=== PATIENT | male | born 1935 | race Caucasian/White ===

== ENCOUNTER → 2016-10-29 | Outpatient (CLI) | payer MEDICARE, OTHER ==
--- NOTE | 2016-10-29 14:41 | US ---
EXAMINATION TYPE: US carotid duplex BILAT DATE OF EXAM: 10/29/2016 2:26 PM COMPARISON: 10/14/2015 CLINICAL HISTORY: I65.23 Carotid Stenosis. EXAM MEASUREMENTS: RIGHT: Peak Systolic Velocity (PSV) cm/sec ----- Right CCA: 108 ----- Right ICA: 90.8 ----- Right ECA: 269 ICA/CCA ratio: 0.8 RIGHT: End Diastole cm/sec ----- Right CCA: 15.4 ----- Right ICA: 11.8 ----- Right ECA: 0 LEFT: Peak Systolic Velocity (PSV) cm/sec ----- Left CCA: 125 ----- Left ICA: 176 ----- Left ECA: 110 ICA/CCA ratio: 1.4 LEFT: End Diastole cm/sec ----- Left CCA: 15.2 ----- Left ICA: 32.0 ----- Left ECA: 13.3 VERTEBRALS (direction of flow): Right Vertebral: Antegrade Left Vertebral: Antegrade Mild homogeneous plaque seen and appears wnl IMPRESSION: 1. Mild atherosclerotic plaque bilaterally with no significant hemodynamic stenosis.
== END | disposition home or self-care (01) ==
LOC: RADUSWWP 13:57
PROVIDERS: ATTEND Family Medicine
DX: I65.23 Occlusion and stenosis of bilateral carotid arteries (principal)
CPT/HCPCS: 93880

== ENCOUNTER → 2018-05-29 | Outpatient (CLI) | payer OTHER ==
--- NOTE | 2018-05-29 14:51 | US ---
EXAMINATION TYPE: US carotid duplex BILAT DATE OF EXAM: 05/29/2018 COMPARISON: CLINICAL HISTORY: I65.29 CAROTID STENOSIS. HTN- meds. Annual exam per patient. EXAM MEASUREMENTS: RIGHT: Peak Systolic Velocity (PSV) cm/sec ----- Right CCA: 123.0 ----- Right ICA: 74.0 ----- Right ECA: 153.0 ICA/CCA ratio: 0.6 RIGHT: End Diastole cm/sec ----- Right CCA: 13.8 ----- Right ICA: 13.8 ----- Right ECA: 0.0 LEFT: Peak Systolic Velocity (PSV) cm/sec ----- Left CCA: 111.0 ----- Left ICA: 101.0 ----- Left ECA: 93.0 ICA/CCA ratio: 0.9 LEFT: End Diastole cm/sec ----- Left CCA: 13.1 ----- Left ICA: 17.5 ----- Left ECA: 12.5 VERTEBRALS (direction of flow): Right Vertebral: Antegrade Left Vertebral: Antegrade Rhythm: Normal No significant stenosis. Plaque seen in bilateral bulbs. No wall thickening. Elevated Right ECA. IMPRESSION: No evidence for hemodynamically significant stenosis. Criteria for Assigning % of Stenosis / Diameter reduction (Estimation based on the indirect measurements of the internal carotid artery velocities (ICA PSV). 1. Normal (no stenosis)=ICA PSV < 125 cm/s: ratio < 2.0: ICA EDV<40 cm/s. 2. Less than 50% stenosis=ICA PSV < 125 cm/s: ratio < 2.0: ICA EDV<40 cm/s. 3. 50 to 69% stenosis=ICA PSV of 125 to 230 cm/s: ration 2.0 ? 4.0: ICA EDV 40-100 cm/s. 4. Greater than 70% stenosis to near occlusion= ICA PSV > 230 cm/s: ratio > 4.0: ICA EDV > 100 cm/s. 5. Near occlusion= ICA PSV velocities may be low or undetectable: variable ratio and ICA EDV. 6. Total occlusion=unable to detect flow.
== END ==
LOC: RADUSWWP 14:02
DX: I65.29 Occlusion and stenosis of unspecified carotid artery (principal)
CPT/HCPCS: 93880

== ENCOUNTER 2019-08-29 10:33 | Emergency (ER) | payer MEDICARE, OTHER ==
[2019-08-29] MEDS ORDERED: ORPHENADRINE 30 MG/ML 2 ML VIAL IM STA (12:44)
[2019-08-29] MEDS ORDERED: KETOROLAC 60 MG/2 ML VIAL IM STA (12:44)
--- NOTE | 2019-08-29 12:47 | ED ---
General Adult HPI - General Chief complaint: Back Pain/Injury Stated complaint: back pain Time Seen by Provider: 08/29/19 11:30 Source: patient, RN notes reviewed, old records reviewed Mode of arrival: wheelchair Limitations: no limitations - History of Present Illness Initial comments: This is a 84-year-old male who presents to the emergency department complaining of posterior right thoracic pain. Patient states he coughed which she typically does because his COPD. And he felt pain just lateral to the spine below the scapula on the right. Patient states movement and deep breathing increases the pain. Patient denies any shortness of breath. Patient denies any chest pain or palpitations. Patient states he's had no fever chills per patient states he is not having any more of a cough and he normally doesn't do COPD. Patient denies any other injury at this time patient states. Patient states he's been taking Tylenol but it has not been helping recurred a couple days ago - Related Data Home Medications Medication Instructions Recorded Confirmed Albuterol Inhaler [Ventolin Hfa 2 puff INHALATION RT-Q6H PRN 08/29/19 08/29/19 Inhaler] Aspirin EC [Ecotrin Low Dose] 81 mg PO HS 08/29/19 08/29/19 Cholecalciferol [Vitamin D3 (25 1,000 unit PO DAILY 08/29/19 08/29/19 Mcg = 1000 Iu)] Latanoprost [Xalatan 0.005%] 1 drop LEFT EYE HS 08/29/19 08/29/19 Lisinopril [Zestril] 20 mg PO BID 08/29/19 08/29/19 Magnesium Oxide [Mag-Ox] 250 mg PO DAILY 08/29/19 08/29/19 Omeprazole 20 mg PO DAILY 08/29/19 08/29/19 Pravastatin Sodium [Pravachol] 20 mg PO HS 08/29/19 08/29/19 Tamsulosin [Flomax] 0.4 mg PO DAILY 08/29/19 08/29/19 Tiotropium 18 Mcg/Puff [Spiriva] 1 puff INHALATION RT-DAILY 08/29/19 08/29/19 Previous Rx's Medication Instructions Recorded Cyclobenzaprine [Flexeril] 10 mg PO TID #20 tab 08/29/19 Ibuprofen [Motrin] 600 mg PO Q8HR PRN #20 tab 08/29/19 Allergies Allergy/AdvReac Type Severity Reaction Status Date / Time No Known Allergies Allergy Verified 08/29/19 14:21 Review of Systems ROS Statement: Those systems with pertinent positive or pertinent negative responses have been documented in the HPI. ROS Other: All systems not noted in ROS Statement are negative. Past Medical History Past Medical History: COPD, Hyperlipidemia, Hypertension, Prostate Disorder Additional Past Medical History / Comment(s): glaucoma History of Any Multi-Drug Resistant Organisms: None Reported Past Surgical History: Cholecystectomy, Orthopedic Surgery Additional Past Surgical History / Comment(s): knee surgery Past Psychological History: No Psychological Hx Reported Smoking Status: Never smoker Past Alcohol Use History: Occasional Past Drug Use History: None Reported General Exam - General Exam Comments Initial Comments: GENERAL: Patient is well-developed and well-nourished. Patient is nontoxic and well- hydrated and is in mild distress. ENT: Neck is soft and supple. No significant lymphadenopathy is noted. Oropharynx is clear. Moist mucous membranes. Neck has full range of motion without eliciting any pain. EYES: The sclera were anicteric and conjunctiva were pink and moist. Extraocular movements were intact and pupils were equal round and reactive to light. Eyelids were unremarkable. PULMONARY: Unlabored respirations. Good breath sounds bilaterally. No audible rales rhonchi or wheezing was noted. CARDIOVASCULAR: There is a regular rate and rhythm without any murmurs gallops or rubs. ABDOMEN: Soft and nontender with normal bowel sounds. SKIN: Skin is clear with no lesions or rashes and otherwise unremarkable. NEUROLOGIC: Patient is alert and oriented x3. Cranial nerves II through XII are grossly intact. Motor and sensory are also intact. Normal speech, volume and content. Symmetrical smile. MUSCULOSKELETAL: Normal extremities with adequate strength and full range of motion. Patient has tenderness in the posterior right thoracic area just below the right scapula no midline tenderness is noted LYMPHATICS: No significant lymphadenopathy is noted PSYCHIATRIC: Normal psychiatric evaluation. Limitations: no limitations Course Vital Signs 08/29/19 11:30 Temperature 98 F Pulse Rate 58 L Respiratory 16 Rate Blood Pressure 156/69 O2 Sat by Pulse 94 L Oximetry Medical Decision Making - Medical Decision Making Chest x-ray shows a T9 compression fracture. A CT was done of the thoracic spine did show the compression fracture with slight retropulsion none of which is impinging upon the spinal cord. Neural foramen in that area are also impinged upon. Patient also has a small lung nodule that needs follow-up. Patient received Toradol and Norflex in the emergency department was feeling considerably better. Disposition Clinical Impression: Compression fracture of T9 vertebra, Lung nodule, Aortic aneurysm Disposition: HOME SELF-CARE Condition: Good Instructions (If sedation given, give patient instructions): Vertebral Compression Fracture (ED) Prescriptions: Cyclobenzaprine [Flexeril] 10 mg PO TID #20 tab Ibuprofen [Motrin] 600 mg PO Q8HR PRN #20 tab PRN Reason: For pain Is patient prescribed a controlled substance at d/c from ED?: No Referrals: [facility],Clinic [Primary Care Provider] - 1-2 days Time of Disposition: 14:52
--- NOTE | 2019-08-29 13:13 | XR ---
EXAMINATION TYPE: XR chest 2V DATE OF EXAM: 08/29/2019 COMPARISON: 10/17/2011 HISTORY: Difficulty breathing. History of COPD TECHNIQUE: Frontal and lateral views of the chest are obtained. FINDINGS: There is no focal air space opacity, pleural effusion, or pneumothorax seen. Pulmonary hyp erinflation compatible with underlying COPD is again seen. Pectus excavatum deformity is seen. The c ardiac silhouette size is mildly enlarged. There is a new compression deformity comparison the prior 2011 at approximately T9. Diffuse osseous demineralization is seen. IMPRESSION: 1. Radiographic sequela of COPD. 2. Compression deformity at approximately T9 that is new from the prior of 2011. Correlate with point tenderness as no recent studies are available to determine more accurate acuity.
--- NOTE | 2019-08-29 14:38 | CT ---
EXAMINATION TYPE: CT thoracic spine wo con DATE OF EXAM: 08/29/2019 COMPARISON: None HISTORY: 84-year-old male with new compression fracture, Back pain TECHNIQUE: Contiguous axial scanning of the thoracic spine without IV contrast. Coronal and sagittal reconstructions performed. CT DLP: 856.8 mGycm Automated exposure control for dose reduction was used. FINDINGS: Heart normal size with small amount of anterior pericardial fluid. Three-vessel coronary artery calci fications are present. Focal saccular aneurysm from the left lateral aspect of the distal arch measuring 2.7 cm wide. Total aortic caliber is 3.9 cm at this level. Large caliber to the main right and left pulmonary arteries measuring up to 3.4 cm highly suggestive of pulmonary hypertension. Underlying mild to moderate centrilobular emphysema. Some focal irregular 1.0 cm ill-defined density medial right upper lobe, axial image 22 be reassessed at follow-up. Horizontal inferior endplate fracture of T9 with approximately 40% anterior height loss. Minimal retr opulsion into the ventral spinal canal without any significant spinal canal stenosis. This results in moderate neuroforaminal stenosis on the right at T9-T10 and mild to moderate on the l eft. Remaining vertebral body heights are preserved. Alignment is maintained. Moderate degenerative disc disease T1-T2 and more advanced within the visualized lower cervical spine . Scattered facet arthropathy lower thoracic spine. Changes result in moderate left neuroforaminal stenosis at T11-T12. 8 mm soft tissue nodularity just deep to the skin surface left paramedian posterior mid back should b e correlated clinically. IMPRESSION: 1. INFERIOR ENDPLATE FRACTURE OF T9 WITH APPROXIMATELY 40% ANTERIOR HEIGHT LOSS AND ONLY MINIMAL RETR OPULSION INTO THE VENTRAL SPINAL CANAL NOT CAUSING ANY SIGNIFICANT SPINAL CANAL STENOSIS. 2. CHANGES RESULT IN MODERATE RIGHT AND [id number] LEFT NEUROFORAMINAL STENOSIS HERE AT T9-T10. 3. FOCAL SACCULAR ANEURYSM FROM THE LEFT LATERAL ASPECT OF THE DISTAL ARCH MEASURING 2.7 CM WIDE. TOT AL AORTIC CALIBER HERE IS 3.9 CM. FOLLOW-UP INDICATED. 4. 8 MM SOFT TISSUE NODULE JUST DEEP TO THE SKIN SURFACE LEFT PARAMEDIAN MID BACK CAN BE CORRELATED W ITH PHYSICAL EXAM FINDINGS. POSSIBLE SEBACEOUS CYST. 5. COPD WITH MILD TO MODERATE EMPHYSEMA. FOCAL, ILL-DEFINED 1.0 CM RIGHT UPPER LOBE DENSITY SHOULD BE REASSESSED IN 3 MONTHS WITH A CONTRAST ENHANCED CT OF THE CHEST UP TO EXCLUDE EARLY NEOPLASM.
[2019-08-29 15:11] VITALS: BP 127/68; PULSE 59; RESP 20; TEMP 98.6
== END 2019-08-29 15:10 | disposition home or self-care (01) ==
LOC: EC 10:33
DX: M48.54XA Collapsed vertebra, not elsewhere classified, thoracic region, initial encounter for fracture (principal); I71.9 Aortic aneurysm of unspecified site, without rupture; R91.1 Solitary pulmonary nodule; J44.9 Chronic obstructive pulmonary disease, unspecified; E78.5 Hyperlipidemia, unspecified; I10 Essential (primary) hypertension; N42.9 Disorder of prostate, unspecified; H40.9 Unspecified glaucoma; Z79.51 Long term (current) use of inhaled steroids; Z79.82 Long term (current) use of aspirin; Z79.899 Other long term (current) drug therapy
CPT/HCPCS: 71046; 72128; 96372 ×2; 99284; J2360; J1885

== ENCOUNTER → 2020-01-24 | Outpatient (CLI) | payer OTHER ==
[2020-01-24 08:38] LABS: African American GFR (CKD) >90 (>60 ml/min/1.73 sqM); Blood Urea Nitrogen 19 mg/dL (9-20); Non-African American GFR(CKD) 82 (>60 ml/min/1.73 sqM)
--- NOTE | 2020-01-24 09:32 | CT ---
EXAMINATION TYPE: CT chest w con DATE OF EXAM: 01/24/2020 COMPARISON: Chest x-ray and CT thorax August 29, 2019. HISTORY: follow up pulmonary nodule, abnormal prior CT. CT DLP: 386.2 mGycm. Automated Exposure Control for Dose Reduction was Utilized. TECHNIQUE: CT scan of the thorax is performed following with IV Contrast, patient injected with 100 mL of Isovue 300. FINDINGS: LUNGS: Moderate underlying emphysematous changes are redemonstrated. Accounting for technical differe nces stable 1.4 x 1.0 cm scarlike opacity anterior right upper lobe axial image 18. New atelectasis a nd/or limited consolidation in the lingula abutting the major fissure near axial image 45 for referen ce. [id number] bibasilar linear scarring and/or atelectasis redemonstrated. No new nodules or m asses. No pleural effusion or pneumothorax. MEDIASTINUM: Slight pectus excavatum deformity redemonstrated. There are is persistent prominent but subcentimeter thoracic lymph nodes including involvement bilateral hilar region, AP window, and parac arinal levels. No cardiomegaly or pericardial effusion is seen. Persistent eccentric 2.8 cm aneurys m of the aortic arch just past the vessel origin. Persistent enlarged right and left pulmonary arteri es, CT findings consistent with underlying pulmonary hypertension. Coronary artery calcification rede monstrated which is noted marker for underlying coronary artery disease. OTHER: Further progression of now severe compression fracture at T9 level . Stable 8 mm posterior loc mal soft tissue nodule axial image 32 presumed benign. Cholecystectomy clips are redemonstrated. Ther e is retroaortic left renal vein which is normal variant. Visualized Liver remains low dense suggesti ng fatty infiltration. IMPRESSION: Moderate emphysematous change with stable 1.4 x 1.0 cm right upper lobe scar or scarlike opacity. Findings favor postinflammatory etiology. Advise CT follow-up in 6 months time to reassess a nd confirm stability.
== END | disposition home or self-care (01) ==
LOC: RADCTMAIN 07:38
DX: J43.9 Emphysema, unspecified (principal); R91.1 Solitary pulmonary nodule
CPT/HCPCS: 82565; 84520; 71260; 36415; Q9967

== ENCOUNTER → 2020-03-24 | Outpatient (CLI) | payer OTHER ==
--- NOTE | 2020-03-24 17:38 | US ---
EXAMINATION TYPE: US carotid duplex BILAT DATE OF EXAM: 03/24/2020 COMPARISON: 05/29/2018 CLINICAL HISTORY: 85-year-old male I65.9 Occlusion and stenosis. TECHNIQUE: Carotid duplex ultrasound examination. In direct Doppler criteria is utilized. FINDINGS: EXAM MEASUREMENTS: RIGHT: Peak Systolic Velocity (PSV) cm/sec ----- Right CCA: 130.2 ----- Right ICA: 114.2 ----- Right ECA: 227.6 ICA/CCA ratio: 0.9 RIGHT: End Diastole cm/sec ----- Right CCA: 16.9 ----- Right ICA: 15.4 ----- Right ECA: 0.0 LEFT: Peak Systolic Velocity (PSV) cm/sec ----- Left CCA: 88.8 ----- Left ICA: 117.3 ----- Left ECA: 86.2 ICA/CCA ratio: 1.3 LEFT: End Diastole cm/sec ----- Left CCA: 15.0 ----- Left ICA: 24.1 ----- Left ECA: 0.0 VERTEBRALS (direction of flow): Right Vertebral: Antegrade Left Vertebral: Antegrade Rhythm: Normal Receiving Teller notes: Bilateral plaque noted. No significant stenosis identified. IMPRESSION: No hemodynamically significant internal carotid artery stenosis on either side. Criteria for Assigning % of Stenosis / Diameter reduction (Estimation based on the indirect measurements of the internal carotid artery velocities (ICA PSV). 1. Normal (no stenosis)=ICA PSV < 125 cm/s: ratio < 2.0: ICA EDV<40 cm/s. 2. Less than 50% stenosis=ICA PSV < 125 cm/s: ratio < 2.0: ICA EDV<40 cm/s. 3. 50 to 69% stenosis=ICA PSV of 125 to 230 cm/s: ration 2.0 ? 4.0: ICA EDV 40-100 cm/s. 4. Greater than 70% stenosis to near occlusion= ICA PSV > 230 cm/s: ratio > 4.0: ICA EDV > 100 cm/s. 5. Near occlusion= ICA PSV velocities may be low or undetectable: variable ratio and ICA EDV. 6. Total occlusion=unable to detect flow.
== END | disposition home or self-care (01) ==
LOC: RADUSWWP 13:14
DX: I65.9 Occlusion and stenosis of unspecified precerebral artery (principal)
CPT/HCPCS: 93880

== ENCOUNTER → 2020-06-17 | Outpatient (CLI) | payer MEDICARE, OTHER ==
[2020-06-17 13:29] LABS: HCT 39.8 % (39.0-53.0); HGB 13.5 gm/dL (13.0-17.5); MCH 34.4 pg (25.0-35.0); MCHC 33.9 g/dL (31.0-37.0); MCV 101.5 fL (80.0-100.0); Mean Platelet Volume 7.4; Platelet Count 203 k/uL (150-450); RBC 3.92 m/uL (4.30-5.90); WBC 10.5 k/uL (3.8-10.6)
[2020-06-17 18:43] LABS: African American GFR (CKD) 90.6 (60.0-200.0); Anion Gap 7.6 mmol/L (4.00-12.00); Carbon Dioxide 26.4 mmol/L (21.6-31.8); Non-African American GFR(CKD) 78.2 (60.0-200.0); Potassium 4.5 mmol/L (3.5-5.5)
== END | disposition home or self-care (01) ==
LOC: LABWHC1 12:20
PROVIDERS: ATTEND Internal Medicine
DX: Z01.818 Encounter for other preprocedural examination (principal); I25.10 Atherosclerotic heart disease of native coronary artery without angina pectoris
CPT/HCPCS: 36415; 80051; 82565; 84520; 85027

== ENCOUNTER 2020-06-25 09:48 | Day surgery (SDC) | payer OTHER ==
[2020-06-23 12:41] VITALS: BMI 53.4
[~2020-06-25 09:48] MED LIST: ALPRAZolam 0.25 MG TAB PO PRN; ALPRAZolam 0.5 MG TAB PO PRN; ASPIRIN 325 MG TAB PO STA; ATORVASTATIN 80 MG TAB PO STA; NITROGLYCERIN SL TABS 0.4 MG TAB SUBLINGUAL PRN; SODIUM CHLORIDE 0.9% 1,000 ML in EMPTY BAG 1 BAG IV ONE
[2020-06-25 10:25] VITALS: TEMP 97.8
[2020-06-25] MEDS ORDERED: LIDOCAINE 1% INJ 10MG/ML (20 ML MDV) ONE (10:35)
[2020-06-25] MEDS ORDERED: VERAPAMIL 2.5 MG/ML 2 ML AMP ONE ×2 (10:35→12:55)
[2020-06-25] MEDS ORDERED: fentaNYL (PF) 50 MCG/ML 2 ML AMP ONE ×2 (10:48→13:04)
[2020-06-25] MEDS ORDERED: HEPARIN SODIUM 1,000 UN/ML (10ML VL) ONE (10:48)
[2020-06-25] MEDS ORDERED: fentaNYL (PF) 50 MCG/ML 2 ML AMP IVP ONE ×2 (11:11→13:04)
[2020-06-25] MEDS ORDERED: MIDAZOLAM 2 MG/2 ML VIAL IVP ONE ×2 (11:11→13:04)
[2020-06-25] MEDS ORDERED: IV FLUID CONTINUATION 1,000 ML IV ONE (12:55)
[2020-06-25] MEDS ORDERED: LIDOCAINE 1% INJ 10MG/ML (20 ML MDV) SQ ONE (13:05)
[2020-06-25] MEDS ORDERED: VERAPAMIL SYRINGE (5 MG/10 ML) INTRAARTER ONE (13:07)
[2020-06-25] MEDS ORDERED: HEPARIN SODIUM 1,000 UN/ML (10ML VL) IV ONE (13:24)
[2020-06-25 13:33] LABS: O2 Sat Blood Gas 65.7 %
[2020-06-25 13:34] LABS: O2 Sat Blood Gas 93.8 %
[2020-06-25 13:35] LABS: O2 Sat Blood Gas 64.1 %
[2020-06-25] MEDS: NITROGLYCERIN 1000MCG/10ML SYRINGE INTRACORON ONE ×2 (13:42→13:54)
[2020-06-25] MEDS ORDERED: IOPAMIDOL-370 125ML BTL INJ ONE (13:53)
[2020-06-25] MEDS ORDERED: IOPAMIDOL-370 100ML BTL INJ ONE (14:00)
[2020-06-25] MEDS ORDERED: RX INFO: IV CONTRAST WAS GIVEN 1 EACH MISC MISCELLANE PRN (14:27)
--- NOTE | 2020-06-25 14:27 | P.CARDCATH ---
Date of Procedure: 06/25/20 Description of Procedure: PROCEDURES PERFORMED: Left heart catheterization, left ventriculogram, bilateral coronary angiography, right heart catheterization, iFR of circumflex and iFR of LAD. INDICATION: Class III angina, shortness of breath and abnormal stress test HISTORY: Patient is a 85-year-old male who presents for workup of abnormal stress test. He has been having fairly symptomatic shortness of breath with minimal exertion such as 20-30 feet for the past few months. We did perform a stress test which showed concern of a inferior lateral and apical ischemia and therefore right and left heart catheterization was recommended. CONSENT:I have discussed the risks, benefits and alternative therapies for the above-mentioned procedure and for both sedation/analgesia as well as necessary blood product administration, if indicated, as they pertain to this patient. The patient has indicated understanding and acceptance of the risks and procedures discussed. PROCEDURE: After the risks, benefits and alternatives of the above mentioned procedure explained in detail with the patient, informed consent was obtained. Patient was taken to the catheterization lab and prepped and draped in usual fashion. 1% lidocaine was used to anesthetize the right radial artery. A 6- Anguillan sheath was placed in the right radial artery using modified Seldinger technique. Additionally, 1% lidocaine was used to anesthetize the right brachial area. A 6-Anguillan sheath was placed in the right brachial artery using modified Seldinger technique and under ultrasound guidance. A 6-Anguillan Shobonier- Stevenson catheter was inserted into the right atrium, right ventricle, pulmonary artery and pulmonary A wedge positions and pressure measurements and oxygen saturations were obtained. The Shobonier-Stevenson catheter was then removed. Left coronary angiography was performed with a 5-Anguillan JL 3.5 catheter and right coronary angiography was performed with a 5-Anguillan JR5 catheter in various views. A 5-Anguillan pigtail catheter was inserted into the left ventricle and pressure measurements were obtained. Left ventriculography was performed in the JUNIOR projection with a power injection. A decision was made to perform functional assessment of the LAD and circumflex given concern of ischemia in that distribution. Therefore a CLS 4.0 guide was used to engage the left main. Heparin was given. A 0.014 iFR wire was advanced into the left main and was normalized. The wire was then advanced 1-2 cm distal to the circumflex lesion and I far measurement was obtained at 0.94. There is no drift with pullback. Next the wire was redirected into the LAD, a few cms past the mid LAD lesion and I far measurement was obtained at 0.91. The guide and wire were then removed. The right radial sheath was removed and a TR band was placed with hemostasis achieved. The brachial sheath was left in place to be pulled in the holding area. The patient tolerated the procedure well. Patient was transported back to the post catheterization holding area in stable condition. Conscious Sedation: Patient was monitored under the direct supervision of vision of myself for conscious sedation using Versed and fentanyl for a total duration of 59 minutes HEMODYNAMICS: RA: 5 RV: 34/1 PA: 38/6 PCWP: 6 LV: 120/2, LVEDP 6 Ao: 122/72 RA O2 sat: 64.1 PA O2 sat: 65.7 Right radial artery O2 sat: 93.8 Cardiac output: 4.67L/min SELECTIVE CORONARY ARTERIOGRAPHY: LEFT MAIN: The left main is a large caliber vessel which bifurcates into the LAD and circumflex. There is no significant stenosis. LEFT ANTERIOR DESCENDING CORONARY ARTERY: LAD is a large caliber vessel which wraps around to the apex. There is a mid LAD 50% stenosis. iFR of mid LAD was 0.91. The LAD has mild aneurysmal appearance throughout. Mild luminal disease elsewhere. LEFT CIRCUMFLEX CORONARY ARTERY: Left circumflex is a large caliber vessel diffuse mild aneurysmal appearance and an eccentric 50-60% mid circumflex stenosis. iFR of 0.94. RIGHT CORONARY ARTERY: The right coronary artery is a large caliber vessel which gives off a PDA and PLV branch and is the dominant vessel. There is diffuse mild aneurysmal disease and mild 30-40% stenosis. LEFT VENTRICULOGRAPHY: Left ventricular ejection fraction is 55% without wall motion abnormalities. There is no significant mitral regurgitation and no significant gradient with pullback across the aortic valve. FINAL IMPRESSION: 1. Mild aneurysmal coronary arteries and mild to moderate disease including a mid LAD 50% stenosis and a mid circumflex 50-60% stenosis with normal iFR of 0.91 and 0.94 respectively. 2. Normal ejection fraction 55% percent without wall motion abnormalities. 3. Normal left and right sided filling pressures PLAN: 1. Aggressive risk factor modification per most recent ACC/AHA guidelines. 2. Follow-up in the office in 1-2 weeks. 3. Workup of other etiologies of GOLDEN.
[2020-06-25 14:41] VITALS: RESP 16
[2020-06-25 17:35] VITALS: BP 130/65; PULSE 68
== END 2020-06-25 18:00 | disposition home or self-care (01) ==
LOC: CATHCVL 09:48
PROVIDERS: ATTEND Internal Medicine
DX: I25.10 Atherosclerotic heart disease of native coronary artery without angina pectoris (principal); I10 Essential (primary) hypertension; I25.41 Coronary artery aneurysm; E78.5 Hyperlipidemia, unspecified; I73.9 Peripheral vascular disease, unspecified; R94.39 Abnormal result of other cardiovascular function study; J44.9 Chronic obstructive pulmonary disease, unspecified; I42.9 Cardiomyopathy, unspecified; Z79.82 Long term (current) use of aspirin; Z79.899 Other long term (current) drug therapy
CPT/HCPCS: 93571; 93572; 93460; 76937; 85018; 82810; C1887; C1751; C1769; C1894; J2250; J2001; J3010; J1644; Q9967 ×2

== ENCOUNTER → 2020-07-28 | Outpatient (CLI) | payer OTHER | END | disposition home or self-care (01) | LOC: RADCTMAIN 13:40 | DX: Z53.9 Procedure and treatment not carried out, unspecified reason (principal) ==

== ENCOUNTER → 2020-07-28 | Outpatient (CLI) | payer MEDICARE, OTHER ==
[2020-07-28 14:36] LABS: African American GFR (CKD) >90 (>60 ml/min/1.73 sqM); Blood Urea Nitrogen 26 mg/dL (9-20); Non-African American GFR(CKD) 87 (>60 ml/min/1.73 sqM)
--- NOTE | 2020-07-28 16:21 | CT ---
EXAMINATION TYPE: CT ChestAbdPelvis w con DATE OF EXAM: 07/28/2020 COMPARISON: 01/24/2020 CT chest HISTORY: 85-year-old male Abnormal weight loss and pulmonary nodule. TECHNIQUE: Contiguous axial scanning of the chest, abdomen, and pelvis performed with IV Contrast, pa tient injected with 100ml mL of Isovue 300. Delayed images through the kidneys were obtained. Coronal /sagittal reconstructions performed. CT DLP: 740.2 mGycm Automated exposure control for dose reduction was used. FINDINGS: CHEST: Heart normal size without pericardial effusion. Three-vessel coronary artery calcifications are prese nt. Focal 3.2 cm aneurysm from the left lateral wall of the mid arch, unchanged. Scattered mild prostatic calcifications and tortuosity. Conventional arch vessel branching anatomy. Precarinal lymph node decreased in size now at 7 mm versus 1 cm, previously. Small posterior mediastinal lymph nodes measuring up to 6 mm are unchanged. No thoracic lymphadenopathy by CT size criteria. Large caliber to the right and left main pulmonary arteries measuring up to 3.4 cm suggesting underly ing pulmonary arterial hypertension. Focal irregular spiculation medial right upper lobe measures 1.2 x 0.9 cm, decreased in size from 1.4 x 1.0 cm, previously. 1.4 cm inferior lingular nodularity also appears decreased in size from 1.6 cm, previously. Moderate to advanced emphysematous change. No consolidation or pleural effusion. ABDOMEN: 4.4 cm AAA incompletely visualized previously. Retroaortic left renal vein. No focal liver lesion or biliary ductal dilatation. Portal venous system is patent. Cholecystectomy c lips. Adrenal glands, right kidney, spleen, and atrophic pancreas show no gross abnormality. Mild fullness of the left sided renal collecting system and patulous left ureter. No dilated small bowel, free fluid, or free air. No mesenteric or retroperitoneal lymphadenopathy see n. There is moderate stool burden. Normal appendix. Sigmoid diverticulosis with redundant sigmoid colon. No pericolic inflammatory change. PELVIS: Bladder is prominently urine distended. Prostate gland is enlarged at 7.0 cm wide with heterogeneous enhancement. No abnormal fluid collection in the pelvis or pelvic lymphadenopathy. BONES: Mild degenerative change at the hips. Osteopenia. Degenerated levoconvex scoliosis of the lumbar spin e. There is a T9 vertebral compression collapse with mild retropulsion into the ventral spinal canal and slight kyphotic form distal. This is unchanged from 01/24/2020. IMPRESSION: 1. IRREGULAR SPICULATION MEDIAL RIGHT UPPER LOBE MEASURES 1.2 CM, DECREASED FROM 1.4 CM, PREVIOUSLY. THIS SUGGESTS A BENIGN ETIOLOGY. A precautionary 12 month follow-up is recommended. 2. Similarly, a 1.4 cm inferior lingular nodule has decreased in size from 1.6 cm, previously. 3. COPD with moderate to advanced emphysema, COPD, pulmonary arterial hypertension, and 4.4 cm infrar enal AAA (for which appropriate follow-up is recommended). Stable focal 3.2 cm aneurysm along the lef t lateral wall of the mid aortic arch. 4. Marked urinary bladder distention with the prostate gland measuring up to 7.0 cm wide suggesting B PH and probable bladder outlet obstruction. Fullness of the left renal collecting system and ureter i s likely secondary to the extensive bladder distention. 5. Given heterogeneous enhancement of the prostate gland, correlate with PSA values to exclude underl cordelia small foci of prostate cancer. 6. Chronic T9 vertebral compression collapse unchanged from 01/24/2020.
== END | disposition home or self-care (01) ==
LOC: RADCTMAIN 13:42
PROVIDERS: ATTEND Internal Medicine
DX: J43.9 Emphysema, unspecified (principal); I71.4 Abdominal aortic aneurysm, without rupture; I27.21 Secondary pulmonary arterial hypertension; R33.9 Retention of urine, unspecified; R63.4 Abnormal weight loss
CPT/HCPCS: 82565; 84520; 71260; 74177; 36415; Q9967

== ENCOUNTER 2021-01-06 14:27 | Emergency (ER) | payer MEDICARE, OTHER ==
[2021-01-06 14:36] VITALS: BP 143/81; PULSE 75; RESP 16; TEMP 97.8
--- NOTE | 2021-01-06 15:04 | ED ---
Fall HPI - General Chief Complaint: Fall Stated Complaint: Fall Time Seen by Provider: 01/06/21 14:45 Source: patient Mode of arrival: wheelchair - History of Present Illness Initial Comments: Patient is an 85-year-old male presenting to the emergency department with complaints of left shoulder pain after he fell today. Patient states he was attempting to stand up from the shower when he slipped backwards falling back into the tub. He states he did not hit his head, he is having some left shoulder pain from this. Patient also states that yesterday he had a fall in the middle the night. He states he got up to use the restroom and then lost his balance and ended up on the ground. He states he did not feel lightheaded or dizzy. He states he was able to get up, use the restroom and went back to bed. He states a few weeks ago he started Lasix for some lower extremity swelling. No other new medications. He denies any lightheadedness or dizziness, no chest pain or shortness of breath. He is having some minor thoracic discomfort, has had this in the past. He states he thinks it's been increasing since the fall yesterday. He denies any nausea or vomiting, no abdominal pain, no lower extremity pain. Patient's daughter is here with him now and is really concerned about his fall yesterday. Patient has no further complaints at this time. Upon arrival to the ER, his vitals are stable. - Related Data Home Medications Medication Instructions Recorded Confirmed Albuterol Inhaler (Mhu) [Ventolin 2 puff INHALATION RT-Q6H 08/29/19 06/25/20 Hfa Inhaler] Aspirin EC [Ecotrin Low Dose] 81 mg PO HS 08/29/19 06/25/20 Cholecalciferol [Vitamin D3 (25 1,000 unit PO DAILY 08/29/19 06/25/20 Mcg = 1000 Iu)] Latanoprost [Xalatan 0.005%] 1 drop LEFT EYE HS 08/29/19 06/25/20 Magnesium Oxide [Mag-Ox] 250 mg PO DAILY 08/29/19 06/25/20 Omeprazole 20 mg PO Q48H 08/29/19 06/25/20 Tamsulosin [Flomax] 0.4 mg PO DAILY 08/29/19 06/25/20 Tiotropium 18 Mcg/Puff [Spiriva] 1 puff INHALATION RT-DAILY 08/29/19 06/25/20 lisinopriL [Zestril] 20 mg PO BID 08/29/19 06/25/20 Atorvastatin [Lipitor] 20 mg PO HS 06/23/20 06/25/20 Ibuprofen [Motrin Ib] 400 mg PO Q8H PRN 06/23/20 06/25/20 Isosorbide Mononitrate [Isosorbide 30 mg PO DAILY 06/23/20 06/25/20 Mononitrate ER] Allergies Allergy/AdvReac Type Severity Reaction Status Date / Time No Known Allergies Allergy Verified 01/06/21 14:35 Review of Systems ROS Statement: Those systems with pertinent positive or pertinent negative responses have been documented in the HPI. ROS Other: All systems not noted in ROS Statement are negative. Past Medical History Past Medical History: COPD, Hyperlipidemia, Hypertension, Prostate Disorder Additional Past Medical History / Comment(s): glaucoma History of Any Multi-Drug Resistant Organisms: None Reported Past Surgical History: Cholecystectomy, Orthopedic Surgery Additional Past Surgical History / Comment(s): knee surgery Past Anesthesia/Blood Transfusion Reactions: No Reported Reaction Past Psychological History: No Psychological Hx Reported Smoking Status: Former smoker Past Alcohol Use History: None Reported Past Drug Use History: None Reported General Exam - General Exam Comments Initial Comments: GENERAL: Patient is well-developed and well-nourished. Patient is nontoxic and in no acute distress. HEAD: Atraumatic, normocephalic. There are no hematomas. EYES: Pupils equal round and reactive to light, extraocular movements intact, sclera anicteric, conjunctiva are normal. Eyelids were unremarkable. ENT: TMs normal, nares patent, oropharynx clear without exudates. Moist mucous membranes. NECK: Normal range of motion, supple without lymphadenopathy or JVD. There is no midline tenderness. LUNGS: Unlabored respirations. Breath sounds clear to auscultation bilaterally and equal. No wheezes rales or rhonchi. HEART: Regular rate and rhythm without murmurs, rubs or gallops. ABDOMEN: Soft, nontender, normoactive bowel sounds. No guarding, no rebound. No masses appreciated. : Deferred MUSCULOSKELETAL: Patient has some mild pain with palpation of the left anterior shoulder, he has some pain with full extension and abduction. He is neurovascular intact, no ob vious deformity or swelling. He has a has some mild tenderness of the thoracic paraspinals. No clubbing or cyanosis. NEUROLOGICAL: Patient is alert and oriented x 3. Motor and sensory are also intact. Cranial nerves II through XII grossly intact. Symmetrical smile. Normal speech, normal gait. PSYCH: Normal mood, normal affect. SKIN: Warm, Dry, normal turgor, no rashes. Patient has a few superficial abrasions on the posterior aspect of both elbows, these are minor, no suturing indicated. Limitations: no limitations Course Vital Signs 01/06/21 14:32 Temperature 97.8 F Pulse Rate 75 Respiratory 16 Rate Blood Pressure 143/81 O2 Sat by Pulse 97 Oximetry Medical Decision Making - Medical Decision Making Patient is an 85-year-old male here after a slip and fall today but also fell yesterday. His vital signs are stable. He is complaining of left shoulder and thoracic discomfort. The rest of exam is unremarkable. X-rays today of the left shoulder show an old old rotator cuff injury, no acute bony abnormality. X-rays of thoracic spine reveal an old compression fracture that is stable, there is a mild new one. Patient does not seem to be tender over this area. I did check some basic labs given his fall yesterday as well, these are normal, urine is normal. Patient feels well, he will take ibuprofen for any discomfort. He can follow up with his PCP. Return parameters were discussed with him and the family and they all verbalized understanding. Case discussed with Dr. Pickens. - Lab Data Result diagrams: 01/06/21 16:08 01/06/21 16:08 Lab Results 01/06/21 01/06/21 01/06/21 Range/Units 16:08 16:08 17:10 WBC 9.0 (3.8-10.6) k/uL RBC 3.90 L (4.30-5.90) m/uL Hgb 13.3 (13.0-17.5) gm/dL Hct 38.7 L (39.0-53.0) % MCV 99.3 (80.0-100.0) fL MCH 34.2 (25.0-35.0) pg MCHC 34.4 (31.0-37.0) g/dL RDW 12.4 (11.5-15.5) % Plt Count 150 (150-450) k/uL MPV 8.0 Neutrophils % 85 % Lymphocytes % 7 % Monocytes % 5 % Eosinophils % 1 % Basophils % 0 % Neutrophils # 7.7 (1.3-7.7) k/uL Lymphocytes # 0.6 L (1.0-4.8) k/uL Monocytes # 0.4 (0-1.0) k/uL Eosinophils # 0.1 (0-0.7) k/uL Basophils # 0.0 (0-0.2) k/uL Sodium 133 L (137-145) mmol/L Potassium 4.5 (3.5-5.1) mmol/L Chloride 100 (98-107) mmol/L Carbon Dioxide 27 (22-30) mmol/L Anion Gap 6 mmol/L BUN 23 H (9-20) mg/dL Creatinine 0.61 L (0.66-1.25) mg/dL Est GFR (CKD-EPI)AfAm >90 (>60 ml/min/1.73 sqM) Est GFR (CKD-EPI)NonAf >90 (>60 ml/min/1.73 sqM) Glucose 102 H (74-99) mg/dL Calcium 9.3 (8.4-10.2) mg/dL Total Bilirubin 0.9 (0.2-1.3) mg/dL AST 39 (17-59) U/L ALT 35 (4-49) U/L Alkaline Phosphatase 126 (38-126) U/L Total Protein 6.5 (6.3-8.2) g/dL Albumin 3.6 (3.5-5.0) g/dL Urine Color Yellow Urine Appearance Clear (Clear) Urine pH 6.5 (5.0-8.0) Ur Specific [place] 1.020 (1.001-1.035) Urine Protein Negative (Negative) Urine Glucose (UA) Negative (Negative) Urine Ketones Negative (Negative) Urine Blood Negative (Negative) Urine Nitrite Negative (Negative) Urine Bilirubin Negative (Negative) Urine Urobilinogen <2.0 (<2.0) mg/dL Ur Leukocyte Esterase Negative (Negative) Disposition Clinical Impression: Fall, Left shoulder pain, Chronic back pain Disposition: HOME SELF-CARE Condition: Stable Instructions (If sedation given, give patient instructions): Fall Prevention for Older Adults (ED) Additional Instructions: Please return to the Emergency Department if symptoms worsen or any other concerns. May take ibuprofen for discomfort. Follow-up with your primary care provider. Is patient prescribed a controlled substance at d/c from ED?: No Referrals: [facility],Clinic [Primary Care Provider] - 1-2 days Time of Disposition: 17:35
[2021-01-06 16:13] LABS: Basophils % (A) 0 %; Eosinophils # (A) 0.1 k/uL (0-0.7); Eosinophils % (A) 1 %; HCT 38.7 % (39.0-53.0); HGB 13.3 gm/dL (13.0-17.5); Lymphocytes # (A) 0.6 k/uL (1.0-4.8); Lymphocytes % (A) 7 %; MCH 34.2 pg (25.0-35.0); MCHC 34.4 g/dL (31.0-37.0); MCV 99.3 fL (80.0-100.0); Monocytes # (A) 0.4 k/uL (0-1.0); Monocytes % (A) 5 %; Neutrophils # (A) 7.7 k/uL (1.3-7.7); Neutrophils % (A) 85 %; Platelet Count 150 k/uL (150-450); RDW 12.4 % (11.5-15.5)
[2021-01-06 16:22] LABS: ALT 35 U/L (4-49); AST 39 U/L (17-59); African American GFR (CKD) >90 (>60 ml/min/1.73 sqM); Albumin 3.6 g/dL (3.5-5.0); Alkaline Phosphatase 126 U/L (38-126); Anion Gap 6 mmol/L; Blood Urea Nitrogen 23 mg/dL (9-20); Calcium 9.3 mg/dL (8.4-10.2); Carbon Dioxide 27 mmol/L (22-30); Chloride 100 mmol/L (98-107); Glucose 102 mg/dL (74-99); Non-African American GFR(CKD) >90 (>60 ml/min/1.73 sqM); Potassium 4.5 mmol/L (3.5-5.1); Sodium 133 mmol/L (137-145); Total Bilirubin 0.9 mg/dL (0.2-1.3); Total Protein 6.5 g/dL (6.3-8.2)
--- NOTE | 2021-01-06 16:37 | XR ---
EXAMINATION TYPE: XR thoracic spine 3 views DATE OF EXAM: 01/06/2021 COMPARISON: 11/11/[address] 07/28/2020 HISTORY: 85-year-old male with fall and pain TECHNIQUE: 3 views FINDINGS: There is osteopenia. 12 rib bearing thoracic vertebral bodies. Severe vertebral compression collapse of a mid thoracic vertebral body, unchanged. Mild compression deformity of an upper third thoracic ve rtebral body appears new. To the extent visualized, alignment appears maintained. IMPRESSION: 1. Severe compression collapse of T9 is unchanged. 2. Mild compression deformity of T6 appears new from 11/11/2020. Correlate for any focal pain at this level. 3. Osteopenia.
--- NOTE | 2021-01-06 16:39 | XR ---
EXAMINATION TYPE: XR shoulder complete LT DATE OF EXAM: 01/06/2021 Comparison: None Clinical History: 85-year-old male fall, pain Findings: Mild degenerative change of the AC joint. The acromial space is preserved. However, there is some fla ttening of the greater tuberosity contour. Mild degenerative change suggested at the glenohumeral lynette nt. No acute fracture, subluxation, dislocation. Osteopenia. Impression: 1. Some flattening to the contour of the greater tuberosity could reflect underlying chronic rotator cuff tear. If indicated, MRI can further evaluate. 2. Mild AC and glenohumeral joint OA. 3. No acute osseous abnormality seen.
[2021-01-06 17:15] LABS: Appearance,Urine Clear (Clear); Bilirubin,Urine Negative (Negative); Blood,Urine Negative (Negative); Color,Urine Yellow; Glucose,Urine (UA) Negative (Negative); Ketones,Urine Negative (Negative); Leukocyte Esterase,Urine Negative (Negative); Nitrite,Urine Negative (Negative); PH, Urine 6.5 (5.0-8.0); Protein,Urine Negative (Negative); Urobilinogen,Urine <2.0 mg/dL (<2.0)
== END 2021-01-06 17:56 | disposition home or self-care (01) ==
LOC: EC 14:27
DX: M25.512 Pain in left shoulder (principal); G89.29 Other chronic pain; M54.6 Pain in thoracic spine; S50.312A Abrasion of left elbow, initial encounter; S50.311A Abrasion of right elbow, initial encounter; M79.89 Other specified soft tissue disorders; E78.5 Hyperlipidemia, unspecified; I10 Essential (primary) hypertension; J44.9 Chronic obstructive pulmonary disease, unspecified; M85.80 Other specified disorders of bone density and structure, unspecified site; Z87.891 Personal history of nicotine dependence; Z79.82 Long term (current) use of aspirin; Z79.51 Long term (current) use of inhaled steroids; Z79.1 Long term (current) use of non-steroidal anti-inflammatories (NSAID); W18.2XXA Fall in (into) shower or empty bathtub, initial encounter; Y93.E1 Activity, personal bathing and showering
CPT/HCPCS: 36415; 72070; 80053; 81003; 85025; 99284

== ENCOUNTER → 2021-04-24 | Day surgery (SDC) | payer MEDICARE, OTHER ==
[2021-04-23 10:44] VITALS: BMI 20.3
[~2021-04-24] MED LIST changes: -ALPRAZolam 0.25 MG TAB PO PRN; -ALPRAZolam 0.5 MG TAB PO PRN; -ASPIRIN 325 MG TAB PO STA; -ATORVASTATIN 80 MG TAB PO STA; +LACTATED RINGERS 1,000 ML IV ONE; +LACTATED RINGERS 1,000 ML IV SCH; +LIDOCAINE 1% INJ 10MG/ML (20 ML MDV) ONE; -NITROGLYCERIN SL TABS 0.4 MG TAB SUBLINGUAL PRN; +PROPOFOL 10 MG/ML 20 ML VIAL IV ONE; -SODIUM CHLORIDE 0.9% 1,000 ML in EMPTY BAG 1 BAG IV ONE; +ePHEDrine SULFATE/0.9% NACL/PF 50 MG/5 ML SYRINGE IV ONE
[2021-04-24 10:44] VITALS: TEMP 97.8
[2021-04-24 11:02] LABS: Glucose,Whole Blood 83 mg/dL (75-99)
--- NOTE | 2021-04-24 11:27 | P.GSHP ---
History of Present Illness H&P Date: 04/24/21 Chief Complaint: GERD, screening colonoscopy This 86-year-old male presents today for EGD and screening colonoscopy. Patient has had issues with GERD. Past Medical History Past Medical History: COPD, Hyperlipidemia, Hypertension, Prostate Disorder Additional Past Medical History / Comment(s): positive occult stool,intermittent diarrhea,wt loss of 50 lbs over last year,hx glaucoma left eye History of Any Multi-Drug Resistant Organisms: None Reported Past Surgical History: Cholecystectomy, Orthopedic Surgery Additional Past Surgical History / Comment(s): knee surgery,lonnie cataracts Past Anesthesia/Blood Transfusion Reactions: Previous Problems w/ Anesthesia Additional Past Anesthesia/Blood Transfusion Reaction / Comment(s): during one colonoscopy had low heart rate and aborted procedure,has had colonoscopies since without problems(was in a study group at [facility] studying a polyp reducing medication) Smoking Status: Former smoker - Past Family History Mother Family Medical History: No Reported History Brother(s) Family Medical History: Cancer Additional Family Medical History / Comment(s): colon CA Medications and Allergies Home Medications Medication Instructions Recorded Confirmed Type Albuterol Inhaler (Mhu) [Ventolin 2 puff INHALATION RT-Q6H PRN 08/29/19 04/23/21 History Hfa Inhaler] Aspirin EC [Ecotrin Low Dose] 81 mg PO HS 08/29/19 04/23/21 History Cholecalciferol [Vitamin D3 (25 1,000 unit PO DAILY 08/29/19 04/23/21 History Mcg = 1000 Iu)] Latanoprost [Xalatan 0.005%] 1 drop LEFT EYE HS 08/29/19 04/23/21 History Magnesium Oxide [Mag-Ox] 500 mg PO DAILY 08/29/19 04/23/21 History Omeprazole 20 mg PO Q48H 08/29/19 04/23/21 History Tamsulosin [Flomax] 0.4 mg PO BID 08/29/19 04/23/21 History Tiotropium 18 Mcg/Puff [Spiriva] 2 puff INHALATION RT-DAILY 08/29/19 04/23/21 History lisinopriL [Zestril] 20 mg PO BID 08/29/19 04/23/21 History Atorvastatin [Lipitor] 20 mg PO HS 06/23/20 04/23/21 History Furosemide [Lasix] 20 mg PO MOWEFR 04/23/21 04/23/21 History predniSONE 5 mg PO DAILY 04/23/21 04/23/21 History Allergies Allergy/AdvReac Type Severity Reaction Status Date / Time No Known Allergies Allergy Verified 04/23/21 10:20 Surgical - Exam Vital Signs Temp Pulse Resp BP Pulse Ox 97.8 F 73 18 195/88 94 L 04/24/21 10:43 04/24/21 10:43 04/24/21 10:43 04/24/21 10:43 04/24/21 10:43 - General well developed, well nourished - Eyes PERRL - ENT normal pinna - Neck no masses - Respiratory normal expansion - Cardiovascular Rhythm: regular - Abdomen Abdomen: soft, non tender Assessment and Plan Assessment: GERD we'll perform EGD. We'll also perform screening colonoscopy
--- NOTE | 2021-04-24 11:59 | P.OP ---
Date of Procedure: 04/24/21 Preoperative Diagnosis: Dysphagia GERD Constipation Postoperative Diagnosis: Antral gastritis Mild esophagitis Severe diverticulosis Procedure(s) Performed: EGD Colonoscopy Anesthesia: MAC Surgeon: Arie Moeller Pathology: other (Antrum, esophagus) Condition: stable Disposition: PACU Description of Procedure: The patient's placed on the endoscopy table lateral position. He received IV sedation. The gastroscope placed oropharynx passed in the esophagus and stomach. Scope was placed through the pylorus. The first and second portion of the duodenum appeared normal. Scope summer back the antrum this. Mildly inflamed. A biopsies performed. The scope was then retroflexed and the remainder of the stomach appeared normal the patient GE junction was at 39 cm. The distal esophagus appeared mildly inflamed. A biopsies performed. The proximal esophagus appeared normal. Scope was withdrawn for patient. Next digital rectal exam was performed no abnormalities. The flexible colonoscope was then placed patient anus and passed throughout the colon. The scope could not pass beyond the left colon secondary to tortuosity valve. Patient extensive diverticular changes. Scope was brought back and sigmoid colon there is extensive diverticular changes.; Was quite tortuous. Scope was withdrawn for patient. The rectum appeared normal. Scope was withdrawn. Patient's esophagram enema today the right colon
[2021-04-24 13:08] VITALS: RESP 20
[2021-04-24 13:20] VITALS: BP 103/58; PULSE 68
--- NOTE | 2021-04-24 15:51 | FL ---
EXAMINATION TYPE: FL barium enema w air contrast DATE OF EXAM: 04/24/2021 COMPARISON: NONE HISTORY: Incomplete colonoscopy TECHNIQUE: A single contrast barium enema study is performed. A total of 92 seconds of fluoroscopic time was utilized during procedure and 53 images obtained. FINDINGS: Weld Inspector view of the abdomen shows overall non-obstructive bowel gas pattern. No evidence of any mass or polyp, obstructing or constricting lesion throughout the colon. Moderate s igmoid diverticular disease noted. No evidence for diverticulitis. Appendix was filled and appeared normal. The terminal ileum was refluxed and appears within normal l imits. IMPRESSION: Diverticulosis without evidence for diverticulitis.
== END ==
LOC: ORWHC2ENDO 10:21
PROVIDERS: ATTEND Surgery
DX: K29.70 Gastritis, unspecified, without bleeding (principal); K21.00 Gastro-esophageal reflux disease with esophagitis, without bleeding; K57.90 Diverticulosis of intestine, part unspecified, without perforation or abscess without bleeding; E78.5 Hyperlipidemia, unspecified; I10 Essential (primary) hypertension; J44.9 Chronic obstructive pulmonary disease, unspecified; K31.9 Disease of stomach and duodenum, unspecified; Z79.52 Long term (current) use of systemic steroids; Z79.82 Long term (current) use of aspirin; Z87.891 Personal history of nicotine dependence; Z90.49 Acquired absence of other specified parts of digestive tract
CPT/HCPCS: 45378; 43239; 88305; 74280; J2001; J2704

== ENCOUNTER 2021-05-18 13:20 | Inpatient (IN) | payer MEDICARE, OTHER ==
[2021-05-18] MEDS ORDERED: SODIUM CHLORIDE 0.9% 1,000 ML IV STA (13:33)
--- NOTE | 2021-05-18 13:39 | ED ---
General Adult HPI - General Chief complaint: Weakness Stated complaint: Weakness Time Seen by Provider: 05/18/21 13:20 Source: patient, EMS, RN notes reviewed, old records reviewed Mode of arrival: EMS Limitations: no limitations - History of Present Illness Initial comments: This is an 86-year-old male who presents emergency room with past medical hist ory significant for COPD. Patient states for the last week she has been having diarrhea and he is become weaker and weaker to the point where difficulty even standing. Patient denies any fever chills per patient denies any cough. Patient states she's on 2 L of oxygen occasionally when he feels as though he needs. Patient states he seldom needs now that his living with his son. Patient denies any headache patient denies numbness weakness. Patient denies lightheadedness dizziness or near syncopal episode. Patient denies abdominal pain. Patient states he vomited for one day doesn't feel nauseated currently. Patient denies any chest pain palpitations difficulty breathing shortness of br eath. Patient denies any swelling to the legs or calf tenderness. - Related Data Home Medications Medication Instructions Recorded Confirmed Albuterol Inhaler (Mhu) [Ventolin 2 puff INHALATION RT-Q6H PRN 08/29/19 04/23/21 Hfa Inhaler] Aspirin EC [Ecotrin Low Dose] 81 mg PO HS 08/29/19 04/23/21 Cholecalciferol [Vitamin D3 (25 1,000 unit PO DAILY 08/29/19 04/23/21 Mcg = 1000 Iu)] Latanoprost [Xalatan 0.005%] 1 drop LEFT EYE HS 08/29/19 04/23/21 Magnesium Oxide [Mag-Ox] 500 mg PO DAILY 08/29/19 04/23/21 Omeprazole 20 mg PO Q48H 08/29/19 04/23/21 Tamsulosin [Flomax] 0.4 mg PO BID 08/29/19 04/23/21 Tiotropium 18 Mcg/Puff [Spiriva] 2 puff INHALATION RT-DAILY 08/29/19 04/23/21 lisinopriL [Zestril] 20 mg PO BID 08/29/19 04/23/21 Atorvastatin [Lipitor] 20 mg PO HS 06/23/20 04/23/21 Furosemide [Lasix] 20 mg PO MOWEFR 04/23/21 04/23/21 predniSONE 5 mg PO DAILY 04/23/21 04/23/21 Allergies Allergy/AdvReac Type Severity Reaction Status Date / Time No Known Allergies Allergy Verified 05/18/21 13:30 Review of Systems ROS Statement: Those systems with pertinent positive or pertinent negative responses have been documented in the HPI. ROS Other: All systems not noted in ROS Statement are negative. Past Medical History Past Medical History: COPD, Hyperlipidemia, Hypertension, Prostate Disorder Additional Past Medical History / Comment(s): positive occult stool,intermittent diarrhea,wt loss of 50 lbs over last year,hx glaucoma left eye History of Any Multi-Drug Resistant Organisms: None Reported Past Surgical History: Cholecystectomy, Orthopedic Surgery Additional Past Surgical History / Comment(s): knee surgery,lonnie cataracts Past Anesthesia/Blood Transfusion Reactions: Previous Problems w/ Anesthesia Additional Past Anesthesia/Blood Transfusion Reaction / Comment(s): during one colonoscopy had low heart rate and aborted procedure,has had colonoscopies since without problems(was in a study group at [facility] studying a polyp reducing medication) Past Psychological History: No Psychological Hx Reported Smoking Status: Former smoker - Past Family History Mother Family Medical History: No Reported History Brother(s) Family Medical History: Cancer Additional Family Medical History / Comment(s): colon CA General Exam - General Exam Comments Initial Comments: GENERAL: Patient is well-developed and well-nourished. Patient is nontoxic and well- hydrated and is in mild distress. ENT: Neck is soft and supple. No significant lymphadenopathy is noted. Oropharynx is clear. Dry mucous membranes. Neck has full range of motion without eliciting any pain. EYES: The sclera were anicteric and conjunctiva were pink and moist. Extraocular movements were intact and pupils were equal round and reactive to light. Eyelids were unremarkable. PULMONARY: Unlabored respirations. Good breath sounds bilaterally. No audible rales rhonchi or wheezing was noted. CARDIOVASCULAR: There is a regular rate and rhythm without any murmurs gallops or rubs. ABDOMEN: Soft and nontender with normal bowel sounds. SKIN: Skin is clear with no lesions or rashes and otherwise unremarkable. NEUROLOGIC: Patient is alert and oriented x3. Cranial nerves II through XII are grossly intact. Motor and sensory are also intact. Normal speech, volume and content. Symmetrical smile. MUSCULOSKELETAL: Normal extremities with adequate strength and full range of motion. No lower extremity swelling or edema. No calf tenderness. LYMPHATICS: No significant lymphadenopathy is noted PSYCHIATRIC: Normal psychiatric evaluation. Limitations: no limitations Course Vital Signs 05/18/21 13:22 Temperature 97.3 F L Pulse Rate 74 Respiratory 18 Rate Blood Pressure 128/112 O2 Sat by Pulse 93 L Oximetry Medical Decision Making - Medical Decision Making EKG shows sinus rhythm with occasional PVC at a rate of 69 bpm UT interval 270 QRS 38 QT interval is 428 QTC is 458. Patient's EKG shows no ST segment elevation or depression. Patient has a right bundle branch block. Chest x-ray shows no acute abnormality. I spoke with Dr. carcamo he agreed to admit the patient and the patient wrote admitting orders - Lab Data Result diagrams: 05/18/21 13:59 05/18/21 13:59 Lab Results 05/18/21 05/18/21 05/18/21 Range/Units 13:59 13:59 13:59 WBC 14.1 H (3.8-10.6) k/uL RBC 3.78 L (4.30-5.90) m/uL Hgb 13.2 (13.0-17.5) gm/dL Hct 39.9 (39.0-53.0) % MCV 105.5 H (80.0-100.0) fL MCH 35.0 (25.0-35.0) pg MCHC 33.1 (31.0-37.0) g/dL RDW 11.1 L (11.5-15.5) % Plt Count 178 (150-450) k/uL MPV 8.4 Neutrophils % 91 % Lymphocytes % 4 % Monocytes % 4 % Eosinophils % 0 % Basophils % 0 % Neutrophils # 12.8 H (1.3-7.7) k/uL Lymphocytes # 0.5 L (1.0-4.8) k/uL Monocytes # 0.5 (0-1.0) k/uL Eosinophils # 0.0 (0-0.7) k/uL Basophils # 0.0 (0-0.2) k/uL Macrocytosis Slight PT 11.3 (9.0-12.0) sec INR 1.1 (<1.2) APTT 29.1 (22.0-30.0) sec Sodium 132 L (137-145) mmol/L Potassium 4.0 (3.5-5.1) mmol/L Chloride 104 (98-107) mmol/L Carbon Dioxide 18 L (22-30) mmol/L Anion Gap 10 mmol/L BUN 86 H (9-20) mg/dL Creatinine 1.38 H (0.66-1.25) mg/dL Est GFR (CKD-EPI)AfAm 54 (>60 ml/min/1.73 sqM) Est GFR (CKD-EPI)NonAf 46 (>60 ml/min/1.73 sqM) Glucose 104 H (74-99) mg/dL Plasma Lactic Acid Anibal (0.7-2.0) mmol/L Calcium 8.5 (8.4-10.2) mg/dL Magnesium 2.0 (1.6-2.3) mg/dL Total Bilirubin 1.2 (0.2-1.3) mg/dL AST 31 (17-59) U/L ALT 35 (4-49) U/L Alkaline Phosphatase 93 (38-126) U/L Total Protein 5.4 L (6.3-8.2) g/dL Albumin 2.5 L (3.5-5.0) g/dL 05/18/21 Range/Units 13:59 WBC (3.8-10.6) k/uL RBC (4.30-5.90) m/uL Hgb (13.0-17.5) gm/dL Hct (39.0-53.0) % MCV (80.0-100.0) fL MCH (25.0-35.0) pg MCHC (31.0-37.0) g/dL RDW (11.5-15.5) % Plt Count (150-450) k/uL MPV Neutrophils % % Lymphocytes % % Monocytes % % Eosinophils % % Basophils % % Neutrophils # (1.3-7.7) k/uL Lymphocytes # (1.0-4.8) k/uL Monocytes # (0-1.0) k/uL Eosinophils # (0-0.7) k/uL Basophils # (0-0.2) k/uL Macrocytosis PT (9.0-12.0) sec INR (<1.2) APTT (22.0-30.0) sec Sodium (137-145) mmol/L Potassium (3.5-5.1) mmol/L Chloride (98-107) mmol/L Carbon Dioxide (22-30) mmol/L Anion Gap mmol/L BUN (9-20) mg/dL Creatinine (0.66-1.25) mg/dL Est GFR (CKD-EPI)AfAm (>60 ml/min/1.73 sqM) Est GFR (CKD-EPI)NonAf (>60 ml/min/1.73 sqM) Glucose (74-99) mg/dL Plasma Lactic Acid Anibal 1.4 (0.7-2.0) mmol/L Calcium (8.4-10.2) mg/dL Magnesium (1.6-2.3) mg/dL Total Bilirubin (0.2-1.3) mg/dL AST (17-59) U/L ALT (4-49) U/L Alkaline Phosphatase (38-126) U/L Total Protein (6.3-8.2) g/dL Albumin (3.5-5.0) g/dL Disposition Clinical Impression: Generalized weakness, Dehydration, Renal insufficiency Disposition: ADMITTED IP TO THIS HOSP Referrals: [facility],Clinic [Primary Care Provider] - 1-2 days Time of Disposition: 14:52
[2021-05-18 14:16] LABS: Basophils % (A) 0 %; Eosinophils % (A) 0 %; HCT 39.9 % (39.0-53.0); HGB 13.2 gm/dL (13.0-17.5); Lymphocytes # (A) 0.5 k/uL (1.0-4.8); Lymphocytes % (A) 4 %; MCHC 33.1 g/dL (31.0-37.0); MCV 105.5 fL (80.0-100.0); Macrocytosis Slight; Mean Platelet Volume 8.4; Monocytes # (A) 0.5 k/uL (0-1.0); Monocytes % (A) 4 %; Neutrophils # (A) 12.8 k/uL (1.3-7.7); Neutrophils % (A) 91 %; Platelet Count 178 k/uL (150-450); RBC 3.78 m/uL (4.30-5.90); RDW 11.1 % (11.5-15.5); WBC 14.1 k/uL (3.8-10.6)
[2021-05-18 14:25] LABS: INR 1.1 (<1.2); Partial Thromboplastin Time 29.1 sec (22.0-30.0); Prothrombin Time 11.3 sec (9.0-12.0)
[2021-05-18] MEDS ORDERED: SODIUM CHLORIDE 0.9% 1,000 ML IV ONE ×2 (14:32→14:53)
[2021-05-18 14:36] LABS: Albumin 2.5 g/dL (3.5-5.0); Calcium 8.5 mg/dL (8.4-10.2); Total Bilirubin 1.2 mg/dL (0.2-1.3); Total Protein 5.4 g/dL (6.3-8.2)
[2021-05-18] MEDS ORDERED: DIPHENOX-ATROP 2.5-0.025 MG 1 EACH TAB PO PRN (14:54)
[2021-05-18] MEDS ORDERED: DIPHENOX-ATROP 2.5-0.025 MG 1 EACH TAB PO STA (14:54)
--- NOTE | 2021-05-18 15:03 | XR ---
EXAMINATION TYPE: XR chest 2V DATE OF EXAM: 05/18/2021 COMPARISON: 08/29/2019 HISTORY: Weakness TECHNIQUE: Frontal and lateral views of the chest are obtained. FINDINGS: The lungs are hyperinflated with left basilar airspace disease. Cardiac silhouette is not enlarged. Worsened collapse is noted in a mid thoracic vertebral body and new collapse is seen in an upper thor acic vertebral body. The bones are diffusely, qualitatively osteopenia. IMPRESSION: Worsened collapse is noted in a mid thoracic vertebral body and new collapse is seen in an upper thor acic vertebral body. The bones are diffusely, qualitatively osteopenia. Lungs are hyperinflated with left basilar airspace disease.
[2021-05-18 15:26] LABS: Appearance,Urine Clear (Clear); Bilirubin,Urine Negative (Negative); Blood,Urine Negative (Negative); Color,Urine Yellow; Glucose,Urine (UA) Negative (Negative); Ketones,Urine Negative (Negative); Leukocyte Esterase,Urine Negative (Negative); Nitrite,Urine Negative (Negative); Protein,Urine Negative (Negative); Specific Gravity,Urine 1.014 (1.001-1.035); Urobilinogen,Urine <2.0 mg/dL (<2.0)
[2021-05-18] MEDS: metroNIDAZOLE-NS PMX 500 MG in SALINE 1 100ML.BAG IVPB SCH (18:52)
[2021-05-18] MEDS ORDERED: ACETAMINOPHEN TAB 500 MG TAB PO PRN (19:30)
[2021-05-18] MEDS ORDERED: IOPAMIDOL CONTRAST (ORAL USE) VIAL PO PRN (19:55)
--- NOTE | 2021-05-18 19:57 | P.HPIM ---
History of Present Illness This is a pleasant 86 years old male with past medical history of COPD, Hyperlipidemia, Hypertension, Prostate Disorder, positive occult stool,intermittent diarrhea,wt loss of 50 lbs over last year,hx glaucoma left eye. He follows up with the [facility] clinic. Patient presents because of feeling ill and generally weak for 1 week duration associated with low appetite. Patient had baseline is staying in bed with only very limited surrounding walking period. He is been complaining of from diarrhea about 10-12 times per day with no blood but we will check occult blood in the stool. He has some abdominal pa in.. No significant chest pain or dyspnea while sitting in bed. Occasional coughing. No urinary complaints. Patient quit smoking years ago. He drinks every other days but he has not drank over the last week. he has concentrated oxygen at home. Patient on prednisone 5 mg daily and he follows up with Dr. Peacock. He is oxygen saturating 92-94% on 2 L oxygen via nasal cannula. Not tachypneic while in bed. Blood pressure is borderline 95/54. Mild leukocytosis 14 K, creatinine 1.38. He is currently on normal sinus 75 mL/h. Start ceftriaxone and IV Flagyl and hydrocortisone. Start calcium and vitamin D. Review of Systems CONSTITUTIONAL: No fever, no malaise, no fatigue. HEENT: No recent visual problems or hearing problems. Denied any sore throat. CARDIOVASCULAR: No orthopnea, PND, no palpitations, no syncope. PULMONARY: No chest wall tenderness, no hemoptysis. GASTROINTESTINAL: no nausea, no vomiting. Normoactive bowel sounds. NEUROLOGICAL: No headaches, no weakness, no numbness. HEMATOLOGICAL: Denies any bleeding or petechiae. GENITOURINARY: Denies any burning micturition, frequency, or urgency. MUSCULOSKELETAL/RHEUMATOLOGICAL: Denies any joint pain, swelling, or any muscle pain. ENDOCRINE: Denies any polyuria or polydipsia. Past Medical History Past Medical History: COPD, Hyperlipidemia, Hypertension, Prostate Disorder Additional Past Medical History / Comment(s): positive occult stool,intermittent diarrhea,wt loss of 50 lbs over last year,hx glaucoma left eye History of Any Multi-Drug Resistant Organisms: None Reported Past Surgical History: Cholecystectomy, Orthopedic Surgery Additional Past Surgical History / Comment(s): knee surgery,lonnie cataracts Past Anesthesia/Blood Transfusion Reactions: Previous Problems w/ Anesthesia Additional Past Anesthesia/Blood Transfusion Reaction / Comment(s): during one colonoscopy had low heart rate and aborted procedure,has had colonoscopies since without problems(was in a study group at [facility] studying a polyp reducing medication) Past Psychological History: No Psychological Hx Reported Smoking Status: Former smoker - Past Family History Mother Family Medical History: No Reported History Brother(s) Family Medical History: Cancer Additional Family Medical History / Comment(s): colon CA Medications and Allergies Home Medications Medication Instructions Recorded Confirmed Type Aspirin EC [Ecotrin Low Dose] 81 mg PO HS 08/29/19 05/18/21 History Latanoprost [Xalatan 0.005%] 1 drop LEFT EYE HS 08/29/19 05/18/21 History Omeprazole 20 mg PO Q48H 08/29/19 05/18/21 History Tamsulosin [Flomax] 0.4 mg PO BID 08/29/19 05/18/21 History lisinopriL [Zestril] 20 mg PO BID 08/29/19 05/18/21 History Atorvastatin [Lipitor] 20 mg PO HS 06/23/20 05/18/21 History Furosemide [Lasix] 20 mg PO MOWEFR 04/23/21 05/18/21 History predniSONE 5 mg PO DAILY 04/23/21 05/18/21 History Acetaminophen Tab [Tylenol] 500 mg PO Q8H PRN 05/18/21 05/18/21 History Cholecalciferol [Vitamin D3 (25 25 mcg PO DAILY 05/18/21 05/18/21 History Mcg = 1000 Iu)] Magnesium 200 mg PO HS 05/18/21 05/18/21 History guaiFENesin [Mucinex] 600 mg PO BID 05/18/21 05/18/21 History Allergies Allergy/AdvReac Type Severity Reaction Status Date / Time No Known Allergies Allergy Verified 05/18/21 16:34 Physical Exam Vitals: Vital Signs Temp Pulse Resp BP Pulse Ox 05/18/21 15:02 78 20 106/87 92 L 05/18/21 13:22 97.3 F L 74 18 128/112 93 L Intake and Output 05/18/21 05/18/21 05/18/21 06:59 14:59 22:59 Other: Weight 128.4 kg GENERAL: The patient is alert and oriented x3, not in any acute distress. Well developed, well nourished. HEENT: Pupils are round and equally reacting to light. EOMI. No scleral icterus. No conjunctival pallor. Normocephalic, atraumatic. No pharyngeal erythema. No thyromegaly. CARDIOVASCULAR: S1 and S2 present. No murmurs, rubs, or gallops. PULMONARY: Chest is clear to auscultation, no wheezing or crackles. ABDOMEN: Soft, nontender, nondistended, normoactive bowel sounds. No palpable organomegaly. MUSCULOSKELETAL: No joint swelling or deformity. EXTREMITIES: No cyanosis, clubbing, or pedal edema. NEUROLOGICAL: Gross neurological examination did not reveal any focal deficits. SKIN: No rashes. no petechiae. Results CBC & Chem 7: 05/18/21 13:59 05/18/21 13:59 Labs: Abnormal Lab Results - Last 24 Hours (Table) 05/18/21 05/18/21 Range/Units 13:59 13:59 WBC 14.1 H (3.8-10.6) k/uL RBC 3.78 L (4.30-5.90) m/uL MCV 105.5 H (80.0-100.0) fL RDW 11.1 L (11.5-15.5) % Neutrophils # 12.8 H (1.3-7.7) k/uL Lymphocytes # 0.5 L (1.0-4.8) k/uL Sodium 132 L (137-145) mmol/L Carbon Dioxide 18 L (22-30) mmol/L BUN 86 H (9-20) mg/dL Creatinine 1.38 H (0.66-1.25) mg/dL Glucose 104 H (74-99) mg/dL Total Protein 5.4 L (6.3-8.2) g/dL Albumin 2.5 L (3.5-5.0) g/dL Assessment and Plan Assessment: Possible right lower lobe pneumonia Possible acute gastroenteritis, infectious versus reactive. Mild acute kidney injury Generalized weakness and deconditioning COPD with mild exacerbation. Steroid dependent Thoracic vertebral collapse Dehydration and borderline hypertension Plan: This is a pleasant 86 years old male who presents with possible pneumonia, weakness, gait I and gastroenteritis. Start ceftriaxone and Flagyl and follow-up culture Continue with IV fluid/normal saline Start hydrocortisone 50 mg 3 times a day, add calcium and vitamin D Infectious disease consult Check pro-calcitonin, C-reactive protein. Check C. diff Check CT of the abdomen and pelvis with oral contrast only Labs and medication were reviewed.. Continue same treatment. Continue with symptomatic treatment. Resume home medication. Monitor lytes and vitals. DVT and GI prophylaxis. Further recommendations as per clinical course of the patient DVT prophylaxis: Subcutaneous heparin GI Prophylaxis: Pepcid PT/OT: Pending Prognosis is guarded
[2021-05-18] MEDS: CALCIUM CARB-VIT D 500 MG-5 MCG TAB PO SCH (20:22)
[2021-05-18] MEDS: HYDROCORTISONE SUCCINATE 100 MG/2 ML VIAL IV SCH (20:24)
[2021-05-18] MEDS ORDERED: FAMOTIDINE 20 MG/2 ML VIAL IV SCH (21:00)
[2021-05-18] MEDS: ASPIRIN 81 MG PO SCH (21:59)
[2021-05-18] MEDS: MAGNESIUM OXIDE 400 MG TAB PO SCH (21:59)
[2021-05-18] MEDS: FAMOTIDINE 20 MG/2 ML VIAL IV SCH (22:00)
[2021-05-18] MEDS: ATORVASTATIN 20 MG TAB PO SCH (22:00)
[2021-05-18] MEDS: HEPARIN SODIUM,PORCINE/PF 5,000 UNIT/0.5 ML SYRINGE SQ SCH (22:00)
[2021-05-18] MEDS: LATANOPROST 0.005% OPHTH DROPS 2.5 ML BTL LEFT EYE SCH (22:01)
--- NOTE | 2021-05-18 22:23 | CT ---
EXAMINATION TYPE: CT abdomen pelvis wo con DATE OF EXAM: 05/18/2021 COMPARISON: 07/28/2020 HISTORY: abd pain CT DLP: 432.7 mGycm Automated exposure control for dose reduction was used. Images obtained from the diaphragm to the floor the pelvis with no IV contrast. There is oral contrast. FINDINGS: Lung bases are clear of consolidation. Heart size is normal. There is no pericardial effusion. There is no pleural effusion. Liver spleen stomach pancreas appear intact. There are clips from cholecystectomy. The bile ducts are not dilated. There is no adrenal mass. Kidneys show no hydronephrosis. Kidneys have fairly normal size. There is t ortuous abdominal aorta. There is 4.5 cm aneurysm of the lower abdominal aorta. There is no retroperi toneal adenopathy. Bladder distends smoothly. There is no inguinal hernia. There is enlarged prostate that measures 7.2 cm. There is no free fluid in the pelvis. There is mild mesenteric fat stranding. There is some gas and f ecal distention of the large bowel. There are fluid levels down to the rectum. I see no evidence of free air. There is no ascites. There is no free fluid in the pelvis. There is degenerative disc space narrowing in the mid and lower lumbar spine. There is no compressio n fracture. The bony pelvis is intact. Hip joints appear intact. There is mild lumbar levoscoliosis. IMPRESSION: 4.5 cm abdominal aortic aneurysm without much change compared to old exam. Distended gas-filled large bowel with fluid levels suggestive of large bowel ileus. There is mild mes enteric edema in the abdomen which is new compared to old exam. Large bowel abnormality appears new c ompared to old exam. Enlarged prostate. Distended urinary bladder measures 12 cm and some chronic bladder outlet obstructi on is possible.
[2021-05-19] MEDS: metroNIDAZOLE-NS PMX 500 MG in SALINE 1 100ML.BAG IVPB SCH ×3 (00:28→16:57)
[2021-05-19] MEDS: HYDROCORTISONE SUCCINATE 100 MG/2 ML VIAL IV SCH ×3 (00:31→16:57)
[2021-05-19 06:21] LABS: Basophils % (A) 0 %; Eosinophils % (A) 0 %; HCT 36.2 % (39.0-53.0); HGB 12.1 gm/dL (13.0-17.5); Lymphocytes # (A) 0.4 k/uL (1.0-4.8); Lymphocytes % (A) 4 %; MCH 35.7 pg (25.0-35.0); MCHC 33.5 g/dL (31.0-37.0); MCV 106.6 fL (80.0-100.0); Macrocytosis Slight; Mean Platelet Volume 8.1; Monocytes # (A) 0.4 k/uL (0-1.0); Monocytes % (A) 4 %; Neutrophils # (A) 8.3 k/uL (1.3-7.7); Neutrophils % (A) 90 %; Platelet Count 193 k/uL (150-450); RDW 11.3 % (11.5-15.5); WBC 9.2 k/uL (3.8-10.6)
[2021-05-19] MEDS: CHOLECALCIFEROL 25 MCG (1000 IU) TABLET PO SCH (07:24)
[2021-05-19] MEDS: CALCIUM CARB-VIT D 500 MG-5 MCG TAB PO SCH ×2 (07:24→16:52)
[2021-05-19] MEDS: HEPARIN SODIUM,PORCINE/PF 5,000 UNIT/0.5 ML SYRINGE SQ SCH ×2 (10:41→21:01)
[2021-05-19 10:54] LABS: Magnesium 1.9 mg/dL (1.5-2.4)
[2021-05-19 11:53] VITALS: BMI 18.4
--- NOTE | 2021-05-19 13:18 | P.PN ---
Subjective This is a pleasant 86 years old male with past medical history of COPD, Hyperlipidemia, Hypertension, Prostate Disorder, positive occult stool,intermittent diarrhea,wt loss of 50 lbs over last year,hx glaucoma left eye. He follows up with the [place] [facility]. Patient presents because of feeling ill and generally weak for 1 week duration associated with low appetite. Patient had baseline is staying in bed with only very limited surrounding walking period. He is been complaining of from diarrhea about 10-12 times per day with no blood but we will check occult blood in the stool. He has some abdominal pain.. No significant chest pain or dyspnea while sitting in bed. Occasional coughing. No urinary complaints. Patient quit smoking years ago. He drinks every other days but he has not drank over the last week. he has concentrated oxygen at home. Patient on prednisone 5 mg daily and he follows up with Dr. Peacock. He is oxygen saturating 92-94% on 2 L oxygen via nasal cannula. Not tachypneic while in bed. Blood pressure is borderline 95/54. Mild leukocytosis 14 K, creatinine 1.38. He is currently on normal sinus 75 mL/h. Start ceftriaxone and IV Flagyl and hydrocortisone. Start calcium and vitamin D. 05/19/2021 Patient is awake, does not look in distress. Hemodynamically stable. Blood pressure is 113/70. Hyperthermic 97.5. Patient states that his diarrhea is better 5 times per day compared to 10 days on admission, he still has mild periumbilical tenderness. He kept on liquid diet Leukocytosis improved down to 9.2 which is normal. Creatinine is pending. procalcitonin mildly elevated at 0.29. CT of the abdomen and pelvis with oral contrast only showing large bowel ileus, aortic aneurysm 4.5 cm, enlarged prostate with distended urinary bladder 12 cm suspicious for chronic urinary obstruction. Patient remains on ceftriaxone and Flagyl, continue with normal saline, continue with hydrocortisone 50 mg 3 times a day which is stress dose as patient is steroid dependent Objective - Vital Signs Vital signs: Vital Signs Temp 97.5 F L 05/19/21 07:51 Pulse 78 05/19/21 08:00 Resp 17 05/19/21 08:00 BP 113/70 05/19/21 07:51 Pulse Ox 98 05/19/21 07:51 Intake & Output 05/18/21 05/19/21 05/19/21 18:59 06:59 18:59 Weight 128.4 kg 53.5 kg 53.5 kg Other: # Voids 1 1 # Bowel Movements 1 1 - Exam GENERAL: The patient is alert and oriented x3, not in any acute distress. Well developed, well nourished. HEENT: Pupils are round and equally reacting to light. EOMI. No scleral icterus. No conjunctival pallor. Normocephalic, atraumatic. No pharyngeal erythema. No thyromegaly. CARDIOVASCULAR: S1 and S2 present. No murmurs, rubs, or gallops. -PULMONARY: Chest is clear to auscultation, no wheezing or crackles. The kidney -ABDOMEN: Soft, mild periumbilical tenderness, nondistended, normoactive bowel sounds. No palpable organomegaly. MUSCULOSKELETAL: No joint swelling or deformity. EXTREMITIES: No cyanosis, clubbing, or pedal edema. NEUROLOGICAL: Gross neurological examination did not reveal any focal deficits. SKIN: No rashes. no petechiae. - Labs CBC & Chem 7: 05/19/21 05:53 05/18/21 13:59 Labs: Abnormal Lab Results - Last 24 Hours (Table) 05/18/21 05/18/21 05/19/21 Range/Units 13:59 13:59 05:53 WBC 14.1 H (3.8-10.6) k/uL RBC 3.78 L (4.30-5.90) m/uL Hgb (13.0-17.5) gm/dL Hct (39.0-53.0) % MCV 105.5 H (80.0-100.0) fL MCH (25.0-35.0) pg RDW 11.1 L (11.5-15.5) % Neutrophils # 12.8 H (1.3-7.7) k/uL Lymphocytes # 0.5 L (1.0-4.8) k/uL Sodium 132 L (137-145) mmol/L Carbon Dioxide 18 L (22-30) mmol/L BUN 86 H (9-20) mg/dL Creatinine 1.38 H (0.66-1.25) mg/dL Glucose 104 H (74-99) mg/dL Total Protein 5.4 L (6.3-8.2) g/dL Albumin 2.5 L (3.5-5.0) g/dL Procalcitonin 0.24 H (0.02-0.09) ng/mL 05/19/21 Range/Units 05:53 WBC (3.8-10.6) k/uL RBC 3.40 L (4.30-5.90) m/uL Hgb 12.1 L (13.0-17.5) gm/dL Hct 36.2 L (39.0-53.0) % MCV 106.6 H (80.0-100.0) fL MCH 35.7 H (25.0-35.0) pg RDW 11.3 L (11.5-15.5) % Neutrophils # 8.3 H (1.3-7.7) k/uL Lymphocytes # 0.4 L (1.0-4.8) k/uL Sodium (137-145) mmol/L Carbon Dioxide (22-30) mmol/L BUN (9-20) mg/dL Creatinine (0.66-1.25) mg/dL Glucose (74-99) mg/dL Total Protein (6.3-8.2) g/dL Albumin (3.5-5.0) g/dL Procalcitonin (0.02-0.09) ng/mL Assessment and Plan Assessment: Possible right lower lobe pneumonia Large bowel ileus Acute and chronic bladder outlet obstruction, may benefit from Beavers catheter Mild acute kidney injury Generalized weakness and deconditioning COPD with mild exacerbation. Steroid dependent Thoracic vertebral collapse Dehydration and borderline hypertension Plan: This is a pleasant 86 years old male who presents with possible pneumonia, weakness, gait I and gastroenteritis. Start ceftriaxone and Flagyl and follow-up culture Continue with IV fluid/normal saline Start hydrocortisone 50 mg 3 times a day, add calcium and vitamin D Infectious disease consult Continue with liquid diet Add Flomax. Check bladder scan. Consider Beavers catheter Check CT of the abdomen and pelvis with oral contrast only Labs and medication were reviewed.. Continue same treatment. Continue with symptomatic treatment. Resume home medication. Monitor lytes and vitals. DVT and GI prophylaxis. Further recommendations as per clinical course of the patient DVT prophylaxis: Subcutaneous heparin GI Prophylaxis: Pepcid PT/OT: Pending Prognosis is guarded
--- NOTE | 2021-05-19 13:33 | P.GSCN ---
History of Present Illness Consult date: 05/19/21 History of present illness: CHIEF COMPLAINT: Weakness Reason for consult bowel obstruction HISTORY OF PRESENT ILLNESS: This is a 86-year-old male who presented to the [facility] erg[facility] room with complaints of diarrhea and feeling weak. Patient did have vomiting for 1 day. He has been having flatus and diarrhea. Patient denies any blood in his stools. Computed tomography scan findings that showed concerns for large bowel ileus. He did have elevated white count 14.1 on admission. Denies any fever chills or sweats. Patient seen and examined with Dr. fierro PAST MEDICAL HISTORY: COPD, hyperlipidemia, hypertension, prostate disorder PAST SURGICAL HISTORY: Cholecystectomy, orthopedic surgery MEDICATIONS: See list. ALLERGIES: See list. SOCIAL HISTORY: No illicit drug use. Former smoker REVIEW OF SYSTEMS: CONSTITUTIONAL: Denies fever or chills. HEENT: Denies blurred vision, vision changes, or eye pain. Denies hemoptysis CARDIOVASCULAR: Denies chest pain or pressure. RESPIRATORY: No shortness of breath. GASTROINTESTINAL: See HPI for pertinent findings HEMATOLOGIC: Denies bleeding disorders. GENITOURINARY: Denies any blood in urine or increased urinary frequency. SKIN: Denies pruitis. Denies rash. PHYSICAL EXAM: VITAL SIGNS: Reviewed GENERAL: Well-developed in no acute distress. HEENT: No sclera icterus. Extraocular movements grossly intact. Moist buccal mucosa. Head is atraumatic, normocephalic. No nasal drainage. ABDOMEN: Soft. Mildly distended NEUROLOGIC: Alert and oriented. Cranial nerves II through XII grossly intact. LABORATORY DATA: WBC 14.1 down to 9.2 hemoglobin 12.1 platelets 193 Sodium 132 potassium 4.0 BUN 86 creatinine 1.38 lactic acid 1.4 Magnesium 2.0 AST 31 ALT 35 alk phos 93 Urinalysis negative Stool for C. diff negative COVID-19 not detected IMAGING: Computed tomography scan abdomen and pelvis with oral contrast shows 4.5 cm abdominal aortic aneurysm without much change compared to old exam. Distended gas-filled large bowel with fluid levels suggesting large bowel ileus. There is mild mesenteric edema in the abdomen which is new compared to old exam. Large bowel abnormality appears new compared to old exam. Enlarged prostate. Distended urinary bladder measuring 12 cm and some chronic bladder outlet obstruction is possible. ASSESSMENT: 1. Diarrhea 2. Possible Large bowel ileus PLAN: -Advance diet to full liquids -Continue supportive care -Discontinue Lomotil due to patient's possible ileus -No surgical intervention planned Thank you for this consultation Physician Manager Simulation note has been reviewed by physician. Signing provider agrees with the documented findings, assessment, and plan of care. Past Medical History Past Medical History: COPD, Hyperlipidemia, Hypertension, Prostate Disorder Additional Past Medical History / Comment(s): positive occult stool,intermittent diarrhea,wt loss of 50 lbs over last year,hx glaucoma left eye History of Any Multi-Drug Resistant Organisms: None Reported Past Surgical History: Cholecystectomy, Orthopedic Surgery Additional Past Surgical History / Comment(s): knee surgery,lonnie cataracts Past Anesthesia/Blood Transfusion Reactions: Previous Problems w/ Anesthesia Additional Past Anesthesia/Blood Transfusion Reaction / Comm: during one c olonoscopy had low heart rate and aborted procedure,has had colonoscopies since without problems(was in a study group at [facility] studying a polyp reducing medication) Past Psychological History: No Psychological Hx Reported Smoking Status: Former smoker Past Alcohol Use History: None Reported Additional Past Alcohol Use History / Comment(s): quit smoking 2010, smoked 1ppd for 60 yrs Past Drug Use History: None Reported - Past Family History Mother Family Medical History: No Reported History Brother(s) Family Medical History: Cancer Additional Family Medical History / Comment(s): colon CA Medications and Allergies Home Medications Medication Instructions Recorded Confirmed Type Aspirin EC [Ecotrin Low Dose] 81 mg PO HS 08/29/19 05/18/21 History Latanoprost [Xalatan 0.005%] 1 drop LEFT EYE HS 08/29/19 05/18/21 History Omeprazole 20 mg PO Q48H 08/29/19 05/18/21 History Tamsulosin [Flomax] 0.4 mg PO BID 08/29/19 05/18/21 History lisinopriL [Zestril] 20 mg PO BID 08/29/19 05/18/21 History Atorvastatin [Lipitor] 20 mg PO HS 06/23/20 05/18/21 History Furosemide [Lasix] 20 mg PO MOWEFR 04/23/21 05/18/21 History predniSONE 5 mg PO DAILY 04/23/21 05/18/21 History Acetaminophen Tab [Tylenol] 500 mg PO Q8H PRN 05/18/21 05/18/21 History Cholecalciferol [Vitamin D3 (25 25 mcg PO DAILY 05/18/21 05/18/21 History Mcg = 1000 Iu)] Magnesium 200 mg PO HS 05/18/21 05/18/21 History guaiFENesin [Mucinex] 600 mg PO BID 05/18/21 05/18/21 History Allergies Allergy/AdvReac Type Severity Reaction Status Date / Time No Known Allergies Allergy Verified 05/18/21 16:34 Surgical - Exam Vital Signs Temp Pulse Resp BP Pulse Ox 97.3 F L 74 18 128/112 93 L 05/18/21 13:22 05/18/21 13:22 05/18/21 13:22 05/18/21 13:22 05/18/21 13:22 Results - Labs 05/19/21 05:53 05/18/21 13:59 Abnormal Lab Results - Last 24 Hours (Table) 05/18/21 05/18/21 05/19/21 Range/Units 13:59 13:59 05:53 WBC 14.1 H (3.8-10.6) k/uL RBC 3.78 L (4.30-5.90) m/uL Hgb (13.0-17.5) gm/dL Hct (39.0-53.0) % MCV 105.5 H (80.0-100.0) fL MCH (25.0-35.0) pg RDW 11.1 L (11.5-15.5) % Neutrophils # 12.8 H (1.3-7.7) k/uL Lymphocytes # 0.5 L (1.0-4.8) k/uL Sodium 132 L (137-145) mmol/L Carbon Dioxide 18 L (22-30) mmol/L BUN 86 H (9-20) mg/dL Creatinine 1.38 H (0.66-1.25) mg/dL Glucose 104 H (74-99) mg/dL Total Protein 5.4 L (6.3-8.2) g/dL Albumin 2.5 L (3.5-5.0) g/dL Procalcitonin 0.24 H (0.02-0.09) ng/mL 05/19/21 Range/Units 05:53 WBC (3.8-10.6) k/uL RBC 3.40 L (4.30-5.90) m/uL Hgb 12.1 L (13.0-17.5) gm/dL Hct 36.2 L (39.0-53.0) % MCV 106.6 H (80.0-100.0) fL MCH 35.7 H (25.0-35.0) pg RDW 11.3 L (11.5-15.5) % Neutrophils # 8.3 H (1.3-7.7) k/uL Lymphocytes # 0.4 L (1.0-4.8) k/uL Sodium (137-145) mmol/L Carbon Dioxide (22-30) mmol/L BUN (9-20) mg/dL Creatinine (0.66-1.25) mg/dL Glucose (74-99) mg/dL Total Protein (6.3-8.2) g/dL Albumin (3.5-5.0) g/dL Procalcitonin (0.02-0.09) ng/mL Diabetes panel 05/18/21 Range/Units 13:59 Sodium 132 L (137-145) mmol/L Potassium 4.0 (3.5-5.1) mmol/L Chloride 104 (98-107) mmol/L Carbon Dioxide 18 L (22-30) mmol/L BUN 86 H (9-20) mg/dL Creatinine 1.38 H (0.66-1.25) mg/dL Glucose 104 H (74-99) mg/dL Calcium 8.5 (8.4-10.2) mg/dL AST 31 (17-59) U/L ALT 35 (4-49) U/L Alkaline Phosphatase 93 (38-126) U/L Total Protein 5.4 L (6.3-8.2) g/dL Albumin 2.5 L (3.5-5.0) g/dL Calcium panel 05/18/21 Range/Units 13:59 Calcium 8.5 (8.4-10.2) mg/dL Albumin 2.5 L (3.5-5.0) g/dL Pituitary panel 05/18/21 Range/Units 13:59 Sodium 132 L (137-145) mmol/L Potassium 4.0 (3.5-5.1) mmol/L Chloride 104 (98-107) mmol/L Carbon Dioxide 18 L (22-30) mmol/L BUN 86 H (9-20) mg/dL Creatinine 1.38 H (0.66-1.25) mg/dL Glucose 104 H (74-99) mg/dL Calcium 8.5 (8.4-10.2) mg/dL Adrenal panel 05/18/21 Range/Units 13:59 Sodium 132 L (137-145) mmol/L Potassium 4.0 (3.5-5.1) mmol/L Chloride 104 (98-107) mmol/L Carbon Dioxide 18 L (22-30) mmol/L BUN 86 H (9-20) mg/dL Creatinine 1.38 H (0.66-1.25) mg/dL Glucose 104 H (74-99) mg/dL Calcium 8.5 (8.4-10.2) mg/dL Total Bilirubin 1.2 (0.2-1.3) mg/dL AST 31 (17-59) U/L ALT 35 (4-49) U/L Alkaline Phosphatase 93 (38-126) U/L Total Protein 5.4 L (6.3-8.2) g/dL Albumin 2.5 L (3.5-5.0) g/dL
[2021-05-19 16:07] LABS: Albumin 2.4 g/dL (3.8-4.9); Albumin/Globulin Ratio 1.14 (1.60-3.17); Globulin 2.1 g/dL (1.6-3.3); Total Bilirubin 0.5 mg/dL (0.30-1.20); Total Protein 4.5 g/dL (6.2-8.2)
[2021-05-19 16:08] LABS: African American GFR (CKD) 89.9 (60.0-200.0); Anion Gap 11.5 mmol/L (4.00-12.00); BUN/Creat Ratio 60.44 Ratio (12.00-20.00); Bilirubin, Conjugated 0.22 mg/dL (0.20-0.40); Bilirubin,Unconjugated 0.28 mg/dL (0.20-1.00); Blood Urea Nitrogen 54.4 mg/dL (9.0-27.0); Calcium 8.1 mg/dL (8.7-10.3); Carbon Dioxide 18.5 mmol/L (21.6-31.8); Non-African American GFR(CKD) 77.6 (60.0-200.0); Potassium 3.8 mmol/L (3.5-5.5)
[2021-05-19] MEDS: TAMSULOSIN 0.4 MG CAP.ER.24H PO SCH (16:57)
[2021-05-19] MEDS: MAGNESIUM OXIDE 400 MG TAB PO SCH (21:00)
[2021-05-19] MEDS: ASPIRIN 81 MG PO SCH (21:00)
[2021-05-19] MEDS: ATORVASTATIN 20 MG TAB PO SCH (21:00)
[2021-05-19] MEDS: LATANOPROST 0.005% OPHTH DROPS 2.5 ML BTL LEFT EYE SCH (21:01)
[2021-05-19] MEDS: FAMOTIDINE 20 MG/2 ML VIAL IV SCH (21:01)
[2021-05-20] MEDS: metroNIDAZOLE-NS PMX 500 MG in SALINE 1 100ML.BAG IVPB SCH ×3 (00:01→16:52)
[2021-05-20 07:10] LABS: Glucose,Whole Blood 124 mg/dL (75-99)
[2021-05-20] MEDS: CALCIUM CARB-VIT D 500 MG-5 MCG TAB PO SCH ×2 (08:06→16:52)
[2021-05-20] MEDS: TAMSULOSIN 0.4 MG CAP.ER.24H PO SCH (08:06)
[2021-05-20] MEDS: HYDROCORTISONE SUCCINATE 100 MG/2 ML VIAL IV SCH ×3 (08:08→16:52)
--- NOTE | 2021-05-20 09:23 | XR ---
EXAMINATION TYPE: XR chest 1V portable DATE OF EXAM: 05/20/2021 HISTORY: Shortness of breath. COMPARISON: 05/18/2021 TECHNIQUE: Single view of the chest is submitted. FINDINGS: Demonstrated are scattered senescent parenchymal change. There is no evidence for focal infiltrate. The heart is stable. Hilar and mediastinal structures are within normal limits. Degenerative changes are seen of the dorsal spine. IMPRESSION: 1. Chronic changes without evidence for acute pulmonary disease.
[2021-05-20] MEDS: CHOLECALCIFEROL 25 MCG (1000 IU) TABLET PO SCH (09:32)
[2021-05-20] MEDS: CHOLESTYRAMINE (WITH SUGAR) 4 GM PACKET PO SCH ×2 (09:38→18:28)
[2021-05-20] MEDS: HEPARIN SODIUM,PORCINE/PF 5,000 UNIT/0.5 ML SYRINGE SQ SCH ×2 (09:41→20:45)
[2021-05-20] MEDS: SODIUM CHLORIDE 0.9% 1,000 ML IV SCH (09:54)
[2021-05-20 10:10] LABS: HCT 38.2 % (39.6-50.0); HGB 12.4 g/dL (13.0-17.0); MCH 33.5 pg (27.0-32.0); MCHC 32.5 g/dL (32.0-37.0); MCV 103.2 fL (80.0-97.0); Mean Platelet Volume 10.2 fL (9.5-12.2); Platelet Count 235 X 10*3/uL (140-440); RDW 11.9 % (11.5-14.5); WBC 7.81 X 10*3/uL (4.50-10.00)
[2021-05-20 10:58] LABS: African American GFR (CKD) 89.9 (60.0-200.0); Anion Gap 9.2 mmol/L (4.00-12.00); BUN/Creat Ratio 45.11 Ratio (12.00-20.00); Blood Urea Nitrogen 40.6 mg/dL (9.0-27.0); Calcium 8.6 mg/dL (8.7-10.3); Carbon Dioxide 21.8 mmol/L (21.6-31.8); Magnesium 1.9 mg/dL (1.5-2.4); Non-African American GFR(CKD) 77.6 (60.0-200.0); Potassium 4.5 mmol/L (3.5-5.5)
[2021-05-20 11:42] LABS: Acanthocytes 2+; Basophils # (A) 0.02 X 10*3/uL (0.00-0.10); Basophils % (A) 0.3 %; Eosinophils # (A) 0 X 10*3/uL (0.04-0.35); Eosinophils % (A) 0 %; Lymphocytes # (A) 0.63 X 10*3/uL (0.90-5.00); Lymphocytes % (A) 8.1 %; Monocytes # (A) 0.59 X 10*3/uL (0.20-1.00); Monocytes % (A) 7.6 %; Neutrophils # (A) 6.45 X 10*3/uL (1.80-7.70); Neutrophils % (A) 82.5 %
--- NOTE | 2021-05-20 12:16 | P.PN ---
Subjective This is a pleasant 86 years old male with past medical history of COPD, Hyperlipidemia, Hypertension, Prostate Disorder, positive occult stool,intermittent diarrhea,wt loss of 50 lbs over last year,hx glaucoma left eye. He follows up with the [facility]. Patient presents because of feeling ill and generally weak for 1 week duration associated with low appetite. Patient had baseline is staying in bed with only very limited surrounding walking period. He is been complaining of from diarrhea about 10-12 times per day with no blood but we will check occult blood in the stool. He has some abdominal pain.. No significant chest pain or dyspnea while sitting in bed. Occasional coughing. No urinary complaints. Patient quit smoking years ago. He drinks every other days but he has not drank over the last week. he has concentrated oxygen at home. Patient on prednisone 5 mg daily and he follows up with Dr. Peacock. He is oxygen saturating 92-94% on 2 L oxygen via nasal cannula. Not tachypneic while in bed. Blood pressure is borderline 95/54. Mild leukocytosis 14 K, creatinine 1.38. He is currently on normal sinus 75 mL/h. Start ceftriaxone and IV Flagyl and hydrocortisone. Start calcium and vitamin D. 05/19/2021 Patient is awake, does not look in distress. Hemodynamically stable. Blood pressure is 113/70. Hyperthermic 97.5. Patient states that his diarrhea is better 5 times per day compared to 10 days on admission, he still has mild periumbilical tenderness. He kept on liquid diet Leukocytosis improved down to 9.2 which is normal. Creatinine is pending. procalcitonin mildly elevated at 0.29. CT of the abdomen and pelvis with oral contrast only showing large bowel ileus, aortic aneurysm 4.5 cm, enlarged prostate with distended urinary bladder 12 cm suspicious for chronic urinary obstruction. Patient remains on ceftriaxone and Flagyl, continue with normal saline, continue with hydrocortisone 50 mg 3 times a day which is stress dose as patient is steroid dependent 05/20/2021 Patient reports improvement today. He feels hungry and tolerating liquid diet and wanted to be advanced to soft diet which is ordered. Distal have diarrhea 51 date severity yesterday however significant back negative. No abdominal pain. Surgery team on the case. His breathing is stable, mildly tachypneic. Repeat chest x-ray today showing chronic changes with no infiltrate. Vitals are stable. Labs are unremarkable including WBC back to 7.8, creatinine remains stable and normal at 0.9. C. diff came back negative. He remains on ceftriaxone and Rocephin. 4 possible gastroenteritis. He remains on stress dose of hydrocortisone. Computed tomography scan showing a large bladder however scan showing only 300. Flomax added. He was started on calcium and vitamin D Check pro-calcitonin tomorrow Objective - Vital Signs Vital signs: Vital Signs Temp 97.5 F L 05/20/21 08:44 Pulse 58 L 05/20/21 08:44 Resp 17 05/20/21 08:00 BP 115/58 05/20/21 08:44 Pulse Ox 98 05/20/21 08:44 Intake & Output 05/19/21 05/20/21 05/20/21 18:59 06:59 18:59 Weight 53.5 kg Other: # Voids 2 2 # Bowel Movements 2 2 - Exam GENERAL: The patient is alert and oriented x3, not in any acute distress. Well developed, well nourished. HEENT: Pupils are round and equally reacting to light. EOMI. No scleral icterus. No conjunctival pallor. Normocephalic, atraumatic. No pharyngeal erythema. No thyromegaly. CARDIOVASCULAR: S1 and S2 present. No murmurs, rubs, or gallops. -PULMONARY: Chest is clear to auscultation, no wheezing or crackles. The kidney -ABDOMEN: Soft, mild periumbilical tenderness, nondistended, normoactive bowel sounds. No palpable organomegaly. MUSCULOSKELETAL: No joint swelling or deformity. EXTREMITIES: No cyanosis, clubbing, or pedal edema. NEUROLOGICAL: Gross neurological examination did not reveal any focal deficits. SKIN: No rashes. no petechiae. - Labs CBC & Chem 7: 05/20/21 06:37 05/20/21 06:37 Labs: Abnormal Lab Results - Last 24 Hours (Table) 05/19/21 05/20/21 05/20/21 Range/Units 05:53 06:37 06:37 RBC 3.70 L (4.40-5.60) X 10*6/uL Hgb 12.4 L (13.0-17.0) g/dL Hct 38.2 L (39.6-50.0) % MCV 103.2 H (80.0-97.0) fL MCH 33.5 H (27.0-32.0) pg Immature Gran # 0.12 H (0.00-0.04) X 10*3/uL Lymphocytes # 0.63 L (0.90-5.00) X 10*3/uL Eosinophils # 0 L (0.04-0.35) X 10*3/uL Chloride 110 H (96-109) mmol/L Carbon Dioxide 18.5 L (21.6-31.8) mmol/L BUN 54.4 H 40.6 H (9.0-27.0) mg/dL BUN/Creatinine Ratio 60.44 H 45.11 H (12.00-20.00) Ratio Glucose 111 H 127 H (70-110) mg/dL POC Glucose (mg/dL) (75-99) mg/dL Calcium 8.1 L 8.6 L (8.7-10.3) mg/dL Total Protein 4.5 L (6.2-8.2) g/dL Albumin 2.4 L (3.8-4.9) g/dL Albumin/Globulin Ratio 1.14 L (1.60-3.17) g/dL 05/20/21 Range/Units 07:09 RBC (4.40-5.60) X 10*6/uL Hgb (13.0-17.0) g/dL Hct (39.6-50.0) % MCV (80.0-97.0) fL MCH (27.0-32.0) pg Immature Gran # (0.00-0.04) X 10*3/uL Lymphocytes # (0.90-5.00) X 10*3/uL Eosinophils # (0.04-0.35) X 10*3/uL Chloride (96-109) mmol/L Carbon Dioxide (21.6-31.8) mmol/L BUN (9.0-27.0) mg/dL BUN/Creatinine Ratio (12.00-20.00) Ratio Glucose (70-110) mg/dL POC Glucose (mg/dL) 124 H (75-99) mg/dL Calcium (8.7-10.3) mg/dL Total Protein (6.2-8.2) g/dL Albumin (3.8-4.9) g/dL Albumin/Globulin Ratio (1.60-3.17) g/dL Assessment and Plan Assessment: Possible right lower lobe pneumonia, versus acute gastroenteritis Large bowel ileus, improving Acute and chronic bladder outlet obstruction, start Flomax Mild acute kidney injury, resolved Generalized weakness and deconditioning COPD with mild exacerbation. Steroid dependent Thoracic vertebral collapse Dehydration and borderline hypertension Plan: This is a pleasant 86 years old male who presents with possible pneumonia, weakness, gait I and gastroenteritis. Continue with ceftriaxone and Flagyl and follow-up culture Continue with IV fluid/normal saline Start hydrocortisone 50 mg 3 times a day, add calcium and vitamin D Infectious disease surgery team consult Continue advance diet Add Flomax. Check bladder scan. Consider Beavers catheter if retention Labs and medication were reviewed.. Continue same treatment. Continue with symptomatic treatment. Resume home medication. Monitor lytes and vitals. DVT and GI prophylaxis. Further recommendations as per clinical course of the patient DVT prophylaxis: Subcutaneous heparin GI Prophylaxis: Pepcid PT/OT: Pending Prognosis is guarded
--- NOTE | 2021-05-20 12:53 | P.PN ---
Subjective Progress Note Date: 05/20/21 CHIEF COMPLAINT: Ileus HISTORY OF PRESENT ILLNESS: Surgical service is following in regards to patient's large bowel ileus. He reports that his diarrhea is improving. It's becoming less frequent and slightly more formed. He did have 3 loose bowel movements this morning. Denies any blood in stools. He reports his abdominal pain is improving. Afebrile. WBC is 7.81 hemoglobin 12.4 Patient seen and examined with Dr. fierro PHYSICAL EXAM: VITAL SIGNS: Reviewed. GENERAL: Well-developed in no acute distress. HEENT: No sclera icterus. Extraocular movements grossly intact. Moist buccal mucosa. Head is atraumatic, normocephalic. ABDOMEN: Soft. Distended nontender NEUROLOGIC: Alert and oriented. Cranial nerves II through XII grossly intact. ASSESSMENT: 1. Possible large bowel ileus. Improving. 2. Diarrhea PLAN: -Continue full liquid diet -Continue supportive care -No surgical intervention planned Physician Manager Ship note has been reviewed by physician. Signing provider agrees with the documented findings, assessment, and plan of care. Objective - Vital Signs Vital signs: Vital Signs Temp 97.5 F L 05/20/21 08:44 Pulse 58 L 05/20/21 08:44 Resp 17 05/20/21 08:00 BP 115/58 05/20/21 08:44 Pulse Ox 98 05/20/21 08:44 Intake & Output 05/19/21 05/20/21 05/20/21 18:59 06:59 18:59 Weight 53.5 kg Other: # Voids 2 2 # Bowel Movements 2 2 - Labs CBC & Chem 7: 05/20/21 06:37 05/20/21 06:37 Labs: Abnormal Lab Results - Last 24 Hours (Table) 05/19/21 05/20/21 05/20/21 Range/Units 05:53 06:37 06:37 RBC 3.70 L (4.40-5.60) X 10*6/uL Hgb 12.4 L (13.0-17.0) g/dL Hct 38.2 L (39.6-50.0) % MCV 103.2 H (80.0-97.0) fL MCH 33.5 H (27.0-32.0) pg Immature Gran # 0.12 H (0.00-0.04) X 10*3/uL Lymphocytes # 0.63 L (0.90-5.00) X 10*3/uL Eosinophils # 0 L (0.04-0.35) X 10*3/uL Chloride 110 H (96-109) mmol/L Carbon Dioxide 18.5 L (21.6-31.8) mmol/L BUN 54.4 H 40.6 H (9.0-27.0) mg/dL BUN/Creatinine Ratio 60.44 H 45.11 H (12.00-20.00) Ratio Glucose 111 H 127 H (70-110) mg/dL POC Glucose (mg/dL) (75-99) mg/dL Calcium 8.1 L 8.6 L (8.7-10.3) mg/dL Total Protein 4.5 L (6.2-8.2) g/dL Albumin 2.4 L (3.8-4.9) g/dL Albumin/Globulin Ratio 1.14 L (1.60-3.17) g/dL 05/20/21 Range/Units 07:09 RBC (4.40-5.60) X 10*6/uL Hgb (13.0-17.0) g/dL Hct (39.6-50.0) % MCV (80.0-97.0) fL MCH (27.0-32.0) pg Immature Gran # (0.00-0.04) X 10*3/uL Lymphocytes # (0.90-5.00) X 10*3/uL Eosinophils # (0.04-0.35) X 10*3/uL Chloride (96-109) mmol/L Carbon Dioxide (21.6-31.8) mmol/L BUN (9.0-27.0) mg/dL BUN/Creatinine Ratio (12.00-20.00) Ratio Glucose (70-110) mg/dL POC Glucose (mg/dL) 124 H (75-99) mg/dL Calcium (8.7-10.3) mg/dL Total Protein (6.2-8.2) g/dL Albumin (3.8-4.9) g/dL Albumin/Globulin Ratio (1.60-3.17) g/dL
[2021-05-20] MEDS: FAMOTIDINE 20 MG/2 ML VIAL IV SCH (20:44)
[2021-05-20] MEDS: ASPIRIN 81 MG PO SCH (20:44)
[2021-05-20] MEDS: MAGNESIUM OXIDE 400 MG TAB PO SCH (20:44)
[2021-05-20] MEDS: ATORVASTATIN 20 MG TAB PO SCH (20:44)
[2021-05-20] MEDS: LATANOPROST 0.005% OPHTH DROPS 2.5 ML BTL LEFT EYE SCH (20:45)
--- NOTE | 2021-05-20 21:56 | P.CONS ---
History of Present Illness - Reason for Consult Consult date: 05/19/21 possible sepsis Requesting physician: Waqar E Sheet - Chief Complaint weakness and diarrhea x 1 week - History of Present Illness History of present illness : Patient is 86-year-old male presenting to the ER 2 days ago for evaluation of diarrhea that apparently has been going on for 1 week in this patient have multiple loose stools has been complaining of some crampy abdominal pain he did have nausea and episodes of vomiting patient becoming weaker and weaker to the point that he was having difficulty standing up patient denies high-grade fever or any chills patient was evaluated by ER physician on arrival to the ER the patient was afebrile and no fever has been recorded subsequently patient did have a white count of 14.1 which is normalized as of this morning still have a left shift patient did have a normal creatinine but elevated BUN liver enzymes are normal urine has been negative stool for significant back negative patient was started on Rocephin and Flagyl infectious disease was consulted for further management of antibiotic therapy patient did have a CT of abdominal pelvis completed on admission which did show distended gas-filled large bowel with fluid suggestive of large bowel ileus mild mesenteric edema enlarged prostate Review of system: CONSTITUTIONAL: Positive for weakness denies high-grade fever. EYES: No complaint. ENT: No complaint. RESPIRATORY: No complaint. CARDIOVASCULAR: No complaint. GENITOURINARY: No complaint. GASTROINTESTINAL: As per history of present illness MUSCULOSKELETAL: No complaint. INTEGUMENTARY: No complaint. PSYCHOLOGIC: No complaint. ENDOCRINE: No complaint. NEUROLOGIC: No complaint. Past medical history : Reviewed, documented below Past surgical history : Reviewed, documented below Social history: Reviewed, documented below Medications: Reviewed, as documented below EXAMINATION: Vital sigans= Reviewed and documented below GENERAL DESCRIPTION: Elderly male lying in bed, no distress. No tachypnea or accessory muscle of respiration use. HEENT: Shows Pallor , no scleral icterus. Oral mucous membrane is dry. NECK: Trachea central, no thyromegaly. LUNGS: Unlabored breathing. Clear to auscultation anteriorly. No wheeze or crackle. HEART: S1, S2, regular rate and rhythm. ABDOMEN: Soft, no tenderness , guarding or rigidity EXTREMITIES: No edema of feet. SKIN: No rash, no masses palpable. NEUROLOGICAL: The patient is awake, alert, oriented x3, mood and affect normal. LABS AND RADIOLOGY: Reviewed results see below Assessment : Patient presented to hospital with significant weakness in this patient has been suffering from diarrhea for about a week he did have an episode of vomiting but no fever no significant abdominal tenderness CT abdominal pelvis has been suspicious for large bowel ileus and some mesenteric edema with a question of possible viral versus bacterial gastroenteritis and less likely ischemic colitis patient has been ruled out for C. difficile colitis with a negative stool for C. difficile Plan: 1-we will obtain stool culture 2-patient to continue with Rocephin and Flagyl 3-IV fluid and avoid antimotility agent We will follow on clinical condition and cultures to further adjust medication if needed Thank you for this consultation we will follow the patient along with you Past Medical History Past Medical History: COPD, Hyperlipidemia, Hypertension, Prostate Disorder Additional Past Medical History / Comment(s): positive occult stool,intermittent diarrhea,wt loss of 50 lbs over last year,hx glaucoma left eye History of Any Multi-Drug Resistant Organisms: None Reported Past Surgical History: Cholecystectomy, Orthopedic Surgery Additional Past Surgical History / Comment(s): knee surgery,lonnie cataracts Past Anesthesia/Blood Transfusion Reactions: Previous Problems w/ Anesthesia Additional Past Anesthesia/Blood Transfusion Reaction / Comm: during one colonoscopy had low heart rate and aborted procedure,has had colonoscopies since without problems(was in a study group at [facility] studying a polyp reducing medication) Past Psychological History: No Psychological Hx Reported Smoking Status: Former smoker Past Alcohol Use History: None Reported Additional Past Alcohol Use History / Comment(s): quit smoking 2010, smoked 1ppd for 60 yrs Past Drug Use History: None Reported - Past Family History Mother Family Medical History: No Reported History Brother(s) Family Medical History: Cancer Additional Family Medical History / Comment(s): colon CA Medications and Allergies Home Medications Medication Instructions Recorded Confirmed Type Aspirin EC [Ecotrin Low Dose] 81 mg PO HS 08/29/19 05/18/21 History Latanoprost [Xalatan 0.005%] 1 drop LEFT EYE HS 08/29/19 05/18/21 History Omeprazole 20 mg PO Q48H 08/29/19 05/18/21 History Tamsulosin [Flomax] 0.4 mg PO BID 08/29/19 05/18/21 History lisinopriL [Zestril] 20 mg PO BID 08/29/19 05/18/21 History Atorvastatin [Lipitor] 20 mg PO HS 06/23/20 05/18/21 History Furosemide [Lasix] 20 mg PO MOWEFR 04/23/21 05/18/21 History predniSONE 5 mg PO DAILY 04/23/21 05/18/21 History Acetaminophen Tab [Tylenol] 500 mg PO Q8H PRN 05/18/21 05/18/21 History Cholecalciferol [Vitamin D3 (25 25 mcg PO DAILY 05/18/21 05/18/21 History Mcg = 1000 Iu)] Magnesium 200 mg PO HS 05/18/21 05/18/21 History guaiFENesin [Mucinex] 600 mg PO BID 05/18/21 05/18/21 History Allergies Allergy/AdvReac Type Severity Reaction Status Date / Time No Known Allergies Allergy Verified 05/18/21 16:34 Physical Exam Vitals: Vital Signs Temp Pulse Pulse Resp BP BP Pulse Ox 05/19/21 08:00 78 17 05/19/21 07:51 97.5 F L 78 17 113/70 98 05/19/21 03:26 61 20 96/54 98 05/19/21 01:55 69 20 100/52 99 05/19/21 00:00 70 90/57 99 05/18/21 22:04 68 20 105/67 98 05/18/21 20:27 69 20 85/55 99 05/18/21 19:59 62 20 84/52 100 05/18/21 15:50 78 20 95/54 100 05/18/21 15:48 78 20 05/18/21 15:02 78 20 106/87 92 L 05/18/21 13:22 97.3 F L 74 18 128/112 93 L Intake and Output 05/18/21 05/19/21 05/19/21 22:59 06:59 14:59 Other: # Voids 1 1 # Bowel Movements 1 1 Weight 53.5 kg Results CBC & Chem 7: 05/20/21 06:37 05/20/21 06:37 Labs: Abnormal Lab Results - Last 24 Hours (Table) 05/18/21 05/18/21 05/19/21 Range/Units 13:59 13:59 05:53 WBC 14.1 H (3.8-10.6) k/uL RBC 3.78 L 3.40 L (4.30-5.90) m/uL Hgb 12.1 L (13.0-17.5) gm/dL Hct 36.2 L (39.0-53.0) % MCV 105.5 H 106.6 H (80.0-100.0) fL MCH 35.7 H (25.0-35.0) pg RDW 11.1 L 11.3 L (11.5-15.5) % Neutrophils # 12.8 H 8.3 H (1.3-7.7) k/uL Lymphocytes # 0.5 L 0.4 L (1.0-4.8) k/uL Sodium 132 L (137-145) mmol/L Carbon Dioxide 18 L (22-30) mmol/L BUN 86 H (9-20) mg/dL Creatinine 1.38 H (0.66-1.25) mg/dL Glucose 104 H (74-99) mg/dL Total Protein 5.4 L (6.3-8.2) g/dL Albumin 2.5 L (3.5-5.0) g/dL
--- NOTE | 2021-05-20 21:58 | P.PN ---
Progress Note - Text Progress Note Date: 05/20/21 REASON FOR FOLLOWUP: . Leukocytosis and diarrhea INTERVAL HISTORY: The patient remains to be afebrile. The patient is feeling better, breathing comfortably. No chest pain, shortness of breath or cough. No abdominal pain however still complaining of diarrhea no worse abdominal bloating mucus in the stool PHYSICAL EXAMINATION: On examination, blood pressure 110/60 with a pulse of 90, temperature 97.9. She is 97% on room air. GENERAL DESCRIPTION: General description is an elderly male up in the chair in no distress. RESPIRATORY SYSTEM: Unlabored breathing. Decreased breath sounds at the bases. No wheeze. HEART: S1, S2. Regular rate and rhythm. ABDOMEN: Soft. No tenderness. EXTREMITIES: Some chronic swelling. No redness. LABS: Reviewed, stool culture currently pending DIAGNOSTIC IMPRESSION AND PLAN: Patient presented to hospital with weakness in this patient suffering from diarrhea for about a week and did have episodes of vomiting CT has been suspicious for large bowel ileus and some mesenteric edema seem to have some clinical response to the Rocephin and Flagyl to continue as the white count has normalized while waiting for the stool culture to finalize
[2021-05-21] MEDS: HYDROCORTISONE SUCCINATE 100 MG/2 ML VIAL IV SCH ×2 (00:51→09:21)
[2021-05-21] MEDS: metroNIDAZOLE-NS PMX 500 MG in SALINE 1 100ML.BAG IVPB SCH ×3 (00:51→16:38)
[2021-05-21] MEDS: SODIUM CHLORIDE 0.9% 1,000 ML IV SCH (06:28)
[2021-05-21] MEDS: CHOLECALCIFEROL 25 MCG (1000 IU) TABLET PO SCH (09:19)
[2021-05-21] MEDS: HEPARIN SODIUM,PORCINE/PF 5,000 UNIT/0.5 ML SYRINGE SQ SCH ×2 (09:19→21:47)
[2021-05-21] MEDS: CALCIUM CARB-VIT D 500 MG-5 MCG TAB PO SCH ×2 (09:20→16:38)
[2021-05-21] MEDS: CHOLESTYRAMINE (WITH SUGAR) 4 GM PACKET PO SCH ×2 (09:20→16:38)
[2021-05-21] MEDS: TAMSULOSIN 0.4 MG CAP.ER.24H PO SCH (09:20)
[2021-05-21 09:52] LABS: Basophils # (A) 0.03 X 10*3/uL (0.00-0.10); Basophils % (A) 0.3 %; Eosinophils # (A) 0 X 10*3/uL (0.04-0.35); Eosinophils % (A) 0 %; HCT 39.1 % (39.6-50.0); HGB 12.7 g/dL (13.0-17.0); Lymphocytes # (A) 0.81 X 10*3/uL (0.90-5.00); Lymphocytes % (A) 7.7 %; MCH 33.7 pg (27.0-32.0); MCHC 32.5 g/dL (32.0-37.0); MCV 103.7 fL (80.0-97.0); Mean Platelet Volume 10.3 fL (9.5-12.2); Monocytes # (A) 0.85 X 10*3/uL (0.20-1.00); Monocytes % (A) 8.1 %; Neutrophils # (A) 8.64 X 10*3/uL (1.80-7.70); Neutrophils % (A) 82.4 %; Platelet Count 271 X 10*3/uL (140-440); RBC 3.77 X 10*6/uL (4.40-5.60); RDW 11.9 % (11.5-14.5); WBC 10.49 X 10*3/uL (4.50-10.00)
--- NOTE | 2021-05-21 12:40 | P.PN ---
Subjective Progress Note Date: 05/21/21 CHIEF COMPLAINT: Ileus HISTORY OF PRESENT ILLNESS: Surgical service is following in regards to patient's large bowel ileus. Patient still complaining of diarrhea. He said he had multiple loose stools yesterday. Patient is concerned that he may have had some blood in his stools. He reports his last colonoscopy was 3 weeks ago. No nausea or vomiting. Tolerating a chopped diet. Still complaining of some abdominal discomfort mostly on the left. Stool culture pending. Stool for C. diff was negative. WBC is 10.49 hemoglobin 12.7. Afebrile Patient seen and examined with Dr. fierro PHYSICAL EXAM: VITAL SIGNS: Reviewed. GENERAL: Well-developed in no acute distress. HEENT: No sclera icterus. Extraocular movements grossly intact. Moist buccal mucosa. Head is atraumatic, normocephalic. ABDOMEN: Soft. Distended nontender NEUROLOGIC: Alert and oriented. Cranial nerves II through XII grossly intact. ASSESSMENT: 1. Possible large bowel ileus. Improving. 2. Diarrhea PLAN: -Continue chopped diet -Continue supportive care -Check stool for occult blood -No surgical intervention planned Physician Administrative Officer note has been reviewed by physician. Signing provider agrees with the documented findings, assessment, and plan of care. Objective - Vital Signs Vital signs: Vital Signs Temp 98.0 F 05/21/21 08:00 Pulse 66 05/21/21 08:00 Resp 16 05/21/21 08:00 BP 104/51 05/21/21 08:00 Pulse Ox 97 05/21/21 08:00 Intake & Output 05/20/21 05/21/21 05/21/21 18:59 06:59 18:59 Other: Voiding Method Bedside Commode Urinal # Voids 4 3 # Bowel Movements 2 2 - Labs CBC & Chem 7: 05/21/21 06:21 05/20/21 06:37 Labs: Abnormal Lab Results - Last 24 Hours (Table) 05/21/21 Range/Units 06:21 WBC 10.49 H (4.50-10.00) X 10*3/uL RBC 3.77 L (4.40-5.60) X 10*6/uL Hgb 12.7 L (13.0-17.0) g/dL Hct 39.1 L (39.6-50.0) % MCV 103.7 H (80.0-97.0) fL MCH 33.7 H (27.0-32.0) pg Immature Gran # 0.16 H (0.00-0.04) X 10*3/uL Neutrophils # 8.64 H (1.80-7.70) X 10*3/uL Lymphocytes # 0.81 L (0.90-5.00) X 10*3/uL Eosinophils # 0 L (0.04-0.35) X 10*3/uL Microbiology - Last 24 Hours (Table) 05/20/21 04:00 Stool Culture - Preliminary Stool
--- NOTE | 2021-05-21 13:31 | P.PN ---
Subjective This is a pleasant 86 years old male with past medical history of COPD, Hyperlipidemia, Hypertension, Prostate Disorder, positive occult stool,intermittent diarrhea,wt loss of 50 lbs over last year,hx glaucoma left eye. He follows up with the [facility]. Patient presents because of feeling ill and generally weak for 1 week duration associated with low appetite. Patient had baseline is staying in bed with only very limited surrounding walking period. He is been complaining of from diarrhea about 10-12 times per day with no blood but we will check occult blood in the stool. He has some abdominal pain.. No significant chest pain or dyspnea while sitting in bed. Occasional coughing. No urinary complaints. Patient quit smoking years ago. He drinks every other days but he has not drank over the last week. he has concentrated oxygen at home. Patient on prednisone 5 mg daily and he follows up with Dr. Peacock. He is oxygen saturating 92-94% on 2 L oxygen via nasal cannula. Not tachypneic while in bed. Blood pressure is borderline 95/54. Mild leukocytosis 14 K, creatinine 1.38. He is currently on normal sinus 75 mL/h. Start ceftriaxone and IV Flagyl and hydrocortisone. Start calcium and vitamin D. 05/19/2021 Patient is awake, does not look in distress. Hemodynamically stable. Blood pressure is 113/70. Hyperthermic 97.5. Patient states that his diarrhea is better 5 times per day compared to 10 days on admission, he still has mild periumbilical tenderness. He kept on liquid diet Leukocytosis improved down to 9.2 which is normal. Creatinine is pending. procalcitonin mildly elevated at 0.29. CT of the abdomen and pelvis with oral contrast only showing large bowel ileus, aortic aneurysm 4.5 cm, enlarged prostate with distended urinary bladder 12 cm suspicious for chronic urinary obstruction. Patient remains on ceftriaxone and Flagyl, continue with normal saline, continue with hydrocortisone 50 mg 3 times a day which is stress dose as patient is steroid dependent 05/20/2021 Patient reports improvement today. He feels hungry and tolerating liquid diet and wanted to be advanced to soft diet which is ordered. Distal have diarrhea 51 date severity yesterday however significant back negative. No abdominal pain. Surgery team on the case. His breathing is stable, mildly tachypneic. Repeat chest x-ray today showing chronic changes with no infiltrate. Vitals are stable. Labs are unremarkable including WBC back to 7.8, creatinine remains stable and normal at 0.9. C. diff came back negative. He remains on ceftriaxone and Rocephin. 4 possible gastroenteritis. He remains on stress dose of hydrocortisone. Computed tomography scan showing a large bladder however scan showing only 300. Flomax added. He was started on calcium and vitamin D Check pro-calcitonin tomorrow 05/21/2021 Patient still have diarrhea with no abdominal pain, no nausea vomiting. Patient says that his diarrhea was going on for about a week and a half but his weight loss was more than a year. He follows up with the [facility]. Respiratory symptoms. Hemodynamically stable, blood pressure is low normal. However we will switch his hydrocortisone and to his home dose of prednisone 5 mg daily and monitor his blood pressure closely. Most likely this is his baseline blood pressure. He has mild leukocytosis due to steroid effect. Creatinine normal. Stool culture is pending, occult blood in stool is pending. Stool wbc and elastase are ordered or below they are of usually low yield. Patient remains on ceftriaxone and Flagyl and gentle hydration. Patient concerned about his weight loss but he wants to follow up with Dr. Chan as an outpatient bladder scan was checked is 294 mL postvoid Objective - Vital Signs Vital signs: Vital Signs Temp 98.0 F 05/21/21 08:00 Pulse 66 05/21/21 08:00 Resp 16 05/21/21 08:00 BP 104/51 05/21/21 08:00 Pulse Ox 97 05/21/21 08:00 Intake & Output 05/20/21 05/21/21 05/21/21 18:59 06:59 18:59 Weight 53.5 kg Other: Voiding Method Bedside Commode Urinal # Voids 4 3 # Bowel Movements 2 2 - Exam GENERAL: The patient is alert and oriented x3, not in any acute distress. Well developed, well nourished. HEENT: Pupils are round and equally reacting to light. EOMI. No scleral icterus. No conjunctival pallor. Normocephalic, atraumatic. No pharyngeal erythema. No thyromegaly. CARDIOVASCULAR: S1 and S2 present. No murmurs, rubs, or gallops. -PULMONARY: Chest is clear to auscultation, no wheezing or crackles. The kidney -ABDOMEN: Soft, mild periumbilical tenderness, nondistended, normoactive bowel sounds. No palpable organomegaly. MUSCULOSKELETAL: No joint swelling or deformity. EXTREMITIES: No cyanosis, clubbing, or pedal edema. NEUROLOGICAL: Gross neurological examination did not reveal any focal deficits. SKIN: No rashes. no petechiae. - Labs CBC & Chem 7: 05/21/21 06:21 05/20/21 06:37 Labs: Abnormal Lab Results - Last 24 Hours (Table) 05/21/21 Range/Units 06:21 WBC 10.49 H (4.50-10.00) X 10*3/uL RBC 3.77 L (4.40-5.60) X 10*6/uL Hgb 12.7 L (13.0-17.0) g/dL Hct 39.1 L (39.6-50.0) % MCV 103.7 H (80.0-97.0) fL MCH 33.7 H (27.0-32.0) pg Immature Gran # 0.16 H (0.00-0.04) X 10*3/uL Neutrophils # 8.64 H (1.80-7.70) X 10*3/uL Lymphocytes # 0.81 L (0.90-5.00) X 10*3/uL Eosinophils # 0 L (0.04-0.35) X 10*3/uL Microbiology - Last 24 Hours (Table) 05/20/21 04:00 Stool Culture - Preliminary Stool Assessment and Plan Assessment: mostly patient is with acute gastroenteritis. Possible right lower lobe pneumonia felt less likely Large bowel ileus, improving Acute and chronic bladder outlet obstruction, start Flomax Mild acute kidney injury, resolved Generalized weakness and deconditioning COPD with mild exacerbation. Steroid dependent Thoracic vertebral collapse Dehydration and borderline hypertension Plan: This is a pleasant 86 years old male who presents with possible pneumonia, weakness, gait I and gastroenteritis. Continue with ceftriaxone and Flagyl and follow-up culture Continue with IV fluid/normal saline Switch hydrocortisone to prednisone, add calcium and vitamin D Infectious disease and surgery team consult Continue advance diet Add Flomax. Check bladder scan. No need for Beavers catheter now as there is no evidence of retention Labs and medication were reviewed.. Continue same treatment. Continue with symptomatic treatment. Resume home medication. Monitor lytes and vitals. DVT and GI prophylaxis. Further recommendations as per clinical course of the patient DVT prophylaxis: Subcutaneous heparin GI Prophylaxis: Pepcid PT/OT: Home health care Prognosis is guarded
[2021-05-21 15:19] LABS: African American GFR (CKD) 99.7 (60.0-200.0); Anion Gap 10.4 mmol/L (4.00-12.00); BUN/Creat Ratio 38.29 Ratio (12.00-20.00); Blood Urea Nitrogen 26.8 mg/dL (9.0-27.0); Calcium 8.6 mg/dL (8.7-10.3); Carbon Dioxide 19.6 mmol/L (21.6-31.8); Non-African American GFR(CKD) 86.1 (60.0-200.0); Potassium 4.4 mmol/L (3.5-5.5)
[2021-05-21] MEDS: predniSONE 5 MG TAB PO SCH (16:38)
--- NOTE | 2021-05-21 16:59 | PN ---
PROGRESS NOTE DATE OF SERVICE: 05/21/2021 REASON FOR FOLLOWUP: Diarrhea. INTERVAL HISTORY: The patient is afebrile. The patient is currently breathing comfortably. The patient is still complaining of diarrhea, though. No abdominal pain or chest pain, shortness of breath or cough. PHYSICAL EXAMINATION: Blood pressure 121/60 with a pulse of 67, temperature 98.2. He is 96% on 2 L nasal cannula. General description is an elderly male up in the bed in no distress. RESPIRATORY SYSTEM: Unlabored breathing. Decreased breath sounds at the bases. No wheeze. HEART: S1, S2. Regular rate and rhythm. ABDOMEN: Soft. No tenderness. EXTREMITIES: No edema of the feet. LABS: Stool cultures are pending. Hemoglobin is 12.6, white count 10.49, creatinine 0.7. DIAGNOSTIC IMPRESSION AND PLAN: Patient admitted to hospital with nausea, vomiting, abdominal pain and diarrhea concerning for possible colitis, possibly infectious. Stool cultures are currently pending. Patient is covered with Rocephin, Flagyl and Questran; to continue while waiting for the cultures to finalize. Continue supportive care. MMODL / IJN: [id number] /
[2021-05-21] MEDS: ASPIRIN 81 MG PO SCH (21:46)
[2021-05-21] MEDS: FAMOTIDINE 20 MG/2 ML VIAL IV SCH (21:46)
[2021-05-21] MEDS: MAGNESIUM OXIDE 400 MG TAB PO SCH (21:46)
[2021-05-21] MEDS: LATANOPROST 0.005% OPHTH DROPS 2.5 ML BTL LEFT EYE SCH (21:47)
[2021-05-21] MEDS: ATORVASTATIN 20 MG TAB PO SCH (21:47)
[2021-05-22] MEDS: metroNIDAZOLE-NS PMX 500 MG in SALINE 1 100ML.BAG IVPB SCH ×3 (00:03→18:02)
[2021-05-22] MEDS: SODIUM CHLORIDE 0.9% 1,000 ML IV SCH (02:25)
[2021-05-22] MEDS: CALCIUM CARB-VIT D 500 MG-5 MCG TAB PO SCH ×2 (08:55→17:19)
[2021-05-22] MEDS: CHOLECALCIFEROL 25 MCG (1000 IU) TABLET PO SCH (08:55)
[2021-05-22] MEDS: HEPARIN SODIUM,PORCINE/PF 5,000 UNIT/0.5 ML SYRINGE SQ SCH ×2 (08:55→21:41)
[2021-05-22] MEDS: TAMSULOSIN 0.4 MG CAP.ER.24H PO SCH (08:56)
[2021-05-22] MEDS: predniSONE 5 MG TAB PO SCH (08:56)
[2021-05-22] MEDS: CHOLESTYRAMINE (WITH SUGAR) 4 GM PACKET PO SCH ×2 (08:57→17:19)
[2021-05-22 10:09] LABS: Basophils # (A) 0.02 X 10*3/uL (0.00-0.10); Basophils % (A) 0.2 %; Eosinophils # (A) 0.05 X 10*3/uL (0.04-0.35); Eosinophils % (A) 0.5 %; HCT 34.7 % (39.6-50.0); HGB 11.3 g/dL (13.0-17.0); Lymphocytes # (A) 1.25 X 10*3/uL (0.90-5.00); Lymphocytes % (A) 12.7 %; MCH 33.7 pg (27.0-32.0); MCHC 32.6 g/dL (32.0-37.0); MCV 103.6 fL (80.0-97.0); Monocytes # (A) 0.98 X 10*3/uL (0.20-1.00); Neutrophils # (A) 7.39 X 10*3/uL (1.80-7.70); Neutrophils % (A) 75.2 %; Platelet Count 229 X 10*3/uL (140-440); RBC 3.35 X 10*6/uL (4.40-5.60); RDW 11.8 % (11.5-14.5); WBC 9.83 X 10*3/uL (4.50-10.00)
[2021-05-22 10:52] LABS: African American GFR (CKD) 99.7 (60.0-200.0); Anion Gap 7.2 mmol/L (4.00-12.00); BUN/Creat Ratio 29.29 Ratio (12.00-20.00); Blood Urea Nitrogen 20.5 mg/dL (9.0-27.0); Calcium 8.3 mg/dL (8.7-10.3); Carbon Dioxide 20.8 mmol/L (21.6-31.8); Non-African American GFR(CKD) 86.1 (60.0-200.0); Potassium 4.3 mmol/L (3.5-5.5)
[2021-05-22] MEDS ORDERED: CEFEPIME 2 GM in SODIUM CHLORIDE 0.9% 100 ML IVPB STA (13:22)
--- NOTE | 2021-05-22 13:26 | P.PN ---
Subjective This is a pleasant 86 years old male with past medical history of COPD, Hyperlipidemia, Hypertension, Prostate Disorder, positive occult stool,intermittent diarrhea,wt loss of 50 lbs over last year,hx glaucoma left eye. He follows up with the [facility]. Patient presents because of feeling ill and generally weak for 1 week duration associated with low appetite. Patient had baseline is staying in bed with only very limited surrounding walking period. He is been complaining of from diarrhea about 10-12 times per day with no blood but we will check occult blood in the stool. He has some abdominal pain.. No significant chest pain or dyspnea while sitting in bed. Occasional coughing. No urinary complaints. Patient quit smoking years ago. He drinks every other days but he has not drank over the last week. he has concentrated oxygen at home. Patient on prednisone 5 mg daily and he follows up with Dr. Peacock. He is oxygen saturating 92-94% on 2 L oxygen via nasal cannula. Not tachypneic while in bed. Blood pressure is borderline 95/54. Mild leukocytosis 14 K, creatinine 1.38. He is currently on normal sinus 75 mL/h. Start ceftriaxone and IV Flagyl and hydrocortisone. Start calcium and vitamin D. 05/19/2021 Patient is awake, does not look in distress. Hemodynamically stable. Blood pressure is 113/70. Hyperthermic 97.5. Patient states that his diarrhea is better 5 times per day compared to 10 days on admission, he still has mild periumbilical tenderness. He kept on liquid diet Leukocytosis improved down to 9.2 which is normal. Creatinine is pending. procalcitonin mildly elevated at 0.29. CT of the abdomen and pelvis with oral contrast only showing large bowel ileus, aortic aneurysm 4.5 cm, enlarged prostate with distended urinary bladder 12 cm suspicious for chronic urinary obstruction. Patient remains on ceftriaxone and Flagyl, continue with normal saline, continue with hydrocortisone 50 mg 3 times a day which is stress dose as patient is steroid dependent 05/20/2021 Patient reports improvement today. He feels hungry and tolerating liquid diet and wanted to be advanced to soft diet which is ordered. Distal have diarrhea 51 date severity yesterday however significant back negative. No abdominal pain. Surgery team on the case. His breathing is stable, mildly tachypneic. Repeat chest x-ray today showing chronic changes with no infiltrate. Vitals are stable. Labs are unremarkable including WBC back to 7.8, creatinine remains stable and normal at 0.9. C. diff came back negative. He remains on ceftriaxone and Rocephin. 4 possible gastroenteritis. He remains on stress dose of hydrocortisone. Computed tomography scan showing a large bladder however scan showing only 300. Flomax added. He was started on calcium and vitamin D Check pro-calcitonin tomorrow 05/21/2021 Patient still have diarrhea with no abdominal pain, no nausea vomiting. Patient says that his diarrhea was going on for about a week and a half but his weight loss was more than a year. He follows up with the [facility]. Respiratory symptoms. Hemodynamically stable, blood pressure is low normal. However we will switch his hydrocortisone and to his home dose of prednisone 5 mg daily and monitor his blood pressure closely. Most likely this is his baseline blood pressure. He has mild leukocytosis due to steroid effect. Creatinine normal. Stool culture is pending, occult blood in stool is pending. Stool wbc and elastase are ordered or below they are of usually low yield. Patient remains on ceftriaxone and Flagyl and gentle hydration. Patient concerned about his weight loss but he wants to follow up with Dr. Chan as an outpatient bladder scan was checked is 294 mL postvoid 05/22/2021 Patient tolerates diet and he is having occasional cramps in his left lower quadrant about twice per day lasting less than a minute. Abdominal area about 5-10 times per day. No fever leukocyte is improved after switching history Mr. prednisone 5 mg. Today stool culture came back positive for Pseudomonas. We'll give 1 dose of cefepime and will discuss with ID team about further antibiotics. An event that we'll continue with gentle hydration and GI and DVT prophylaxis. Physical therapist recommended home health care Objective - Vital Signs Vital signs: Vital Signs Temp 98.4 F 05/22/21 07:24 Pulse 65 05/22/21 07:24 Resp 17 05/22/21 07:24 BP 124/51 05/22/21 07:24 Pulse Ox 99 05/22/21 07:24 Intake & Output 05/21/21 05/22/21 05/22/21 18:59 06:59 18:59 Intake Total 240 Balance 240 Weight 53.5 kg Intake: Oral 240 Other: Voiding Method Bedside Commode Urinal # Voids 2 4 # Bowel Movements 2 - Exam GENERAL: The patient is alert and oriented x3, not in any acute distress. Well developed, well nourished. HEENT: Pupils are round and equally reacting to light. EOMI. No scleral icterus. No conjunctival pallor. Normocephalic, atraumatic. No pharyngeal erythema. No thyromegaly. CARDIOVASCULAR: S1 and S2 present. No murmurs, rubs, or gallops. -PULMONARY: Chest is clear to auscultation, no wheezing or crackles. The kidney -ABDOMEN: Soft, mild periumbilical tenderness, nondistended, normoactive bowel sounds. No palpable organomegaly. MUSCULOSKELETAL: No joint swelling or deformity. EXTREMITIES: No cyanosis, clubbing, or pedal edema. NEUROLOGICAL: Gross neurological examination did not reveal any focal deficits. SKIN: No rashes. no petechiae. - Labs CBC & Chem 7: 05/22/21 05:09 05/22/21 05:09 Labs: Abnormal Lab Results - Last 24 Hours (Table) 05/21/21 05/21/21 05/22/21 Range/Units 06:21 06:21 05:09 RBC 3.35 L (4.40-5.60) X 10*6/uL Hgb 11.3 L (13.0-17.0) g/dL Hct 34.7 L (39.6-50.0) % MCV 103.6 H (80.0-97.0) fL MCH 33.7 H (27.0-32.0) pg Immature Gran # 0.14 H (0.00-0.04) X 10*3/uL Chloride 110 H (96-109) mmol/L Carbon Dioxide 19.6 L (21.6-31.8) mmol/L BUN/Creatinine Ratio 38.29 H (12.00-20.00) Ratio Calcium 8.6 L (8.7-10.3) mg/dL Procalcitonin 0.13 H (0.02-0.09) ng/mL 05/22/21 Range/Units 05:09 RBC (4.40-5.60) X 10*6/uL Hgb (13.0-17.0) g/dL Hct (39.6-50.0) % MCV (80.0-97.0) fL MCH (27.0-32.0) pg Immature Gran # (0.00-0.04) X 10*3/uL Chloride 110 H (96-109) mmol/L Carbon Dioxide 20.8 L (21.6-31.8) mmol/L BUN/Creatinine Ratio 29.29 H (12.00-20.00) Ratio Calcium 8.3 L (8.7-10.3) mg/dL Procalcitonin (0.02-0.09) ng/mL Microbiology - Last 24 Hours (Table) 05/20/21 04:00 Stool Culture - Preliminary Stool Pseudomonas aeruginosa Assessment and Plan Assessment: mostly patient is with acute gastroenteritis. Stool culture is growing Pseudomonas Large bowel ileus, improving Acute and chronic bladder outlet obstruction, start Flomax Mild acute kidney injury, resolved Generalized weakness and deconditioning COPD with mild exacerbation. Steroid dependent Thoracic vertebral collapse Dehydration and borderline hypertension Plan: This is a pleasant 86 years old male who presents with possible pneumonia, weakness, gait I and gastroenteritis. Continue with antibiotics per ID team and follow-up culture Continue with IV fluid/normal saline Switch hydrocortisone to prednisone, add calcium and vitamin D Infectious disease and surgery team consult Continue advance diet Add Flomax. Check bladder scan. No need for Beavers catheter now as there is no evidence of retention Labs and medication were reviewed.. Continue same treatment. Continue with s ymptomatic treatment. Resume home medication. Monitor lytes and vitals. DVT and GI prophylaxis. Further recommendations as per clinical course of the patient DVT prophylaxis: Subcutaneous heparin GI Prophylaxis: Pepcid PT/OT: Home health care Prognosis is guarded
--- NOTE | 2021-05-22 13:41 | P.PN ---
Subjective Progress Note Date: 05/22/21 CHIEF COMPLAINT: Ileus HISTORY OF PRESENT ILLNESS: Surgical service is following in regards to patient's large bowel ileus. Patient reporting multiple loose stools. He is no longer seeing blood in his stools. His stool for occult blood was positive. Hemoglobin is stable at 12.7. Stool cultures positive for Pseudomonas. Antibiotics per ID. Afebrile WBC has normalized at 9.83 hemoglobin is 11.3 Patient seen and examined with Dr. fierro PHYSICAL EXAM: VITAL SIGNS: Reviewed. GENERAL: Well-developed in no acute distress. HEENT: No sclera icterus. Extraocular movements grossly intact. Moist buccal mucosa. Head is atraumatic, normocephalic. ABDOMEN: Soft. Nondistended. NEUROLOGIC: Alert and oriented. Cranial nerves II through XII grossly intact. ASSESSMENT: 1. Possible large bowel ileus. Improving. 2. Diarrhea PLAN: -Continue chopped diet -Continue supportive care -Antibiotics per ID service -No surgical intervention planned Physician Tankman note has been reviewed by physician. Signing provider agrees with the documented findings, assessment, and plan of care. Objective - Vital Signs Vital signs: Vital Signs Temp 98.4 F 05/22/21 07:24 Pulse 65 05/22/21 07:24 Resp 17 05/22/21 07:24 BP 124/51 05/22/21 07:24 Pulse Ox 99 05/22/21 07:24 Intake & Output 05/21/21 05/22/21 05/22/21 18:59 06:59 18:59 Intake Total 240 Balance 240 Weight 53.5 kg Intake: Oral 240 Other: Voiding Method Bedside Commode Urinal # Voids 2 4 # Bowel Movements 2 - Labs CBC & Chem 7: 05/22/21 05:09 05/22/21 05:09 Labs: Abnormal Lab Results - Last 24 Hours (Table) 05/21/21 05/21/21 05/22/21 Range/Units 06:21 06:21 05:09 RBC 3.35 L (4.40-5.60) X 10*6/uL Hgb 11.3 L (13.0-17.0) g/dL Hct 34.7 L (39.6-50.0) % MCV 103.6 H (80.0-97.0) fL MCH 33.7 H (27.0-32.0) pg Immature Gran # 0.14 H (0.00-0.04) X 10*3/uL Chloride 110 H (96-109) mmol/L Carbon Dioxide 19.6 L (21.6-31.8) mmol/L BUN/Creatinine Ratio 38.29 H (12.00-20.00) Ratio Calcium 8.6 L (8.7-10.3) mg/dL Procalcitonin 0.13 H (0.02-0.09) ng/mL 05/22/21 Range/Units 05:09 RBC (4.40-5.60) X 10*6/uL Hgb (13.0-17.0) g/dL Hct (39.6-50.0) % MCV (80.0-97.0) fL MCH (27.0-32.0) pg Immature Gran # (0.00-0.04) X 10*3/uL Chloride 110 H (96-109) mmol/L Carbon Dioxide 20.8 L (21.6-31.8) mmol/L BUN/Creatinine Ratio 29.29 H (12.00-20.00) Ratio Calcium 8.3 L (8.7-10.3) mg/dL Procalcitonin (0.02-0.09) ng/mL Microbiology - Last 24 Hours (Table) 05/20/21 04:00 Stool Culture - Preliminary Stool Pseudomonas aeruginosa
[2021-05-22] MEDS ORDERED: ALBUTEROL NEBULIZED 1.25 MG/3 ML INHALATION SCH (16:00)
--- NOTE | 2021-05-22 18:34 | XR ---
EXAMINATION TYPE: XR chest 1V DATE OF EXAM: 05/22/2021 HISTORY: Shortness of breath. COMPARISON: 05/20/2021 TECHNIQUE: Single view of the chest is submitted. FINDINGS: Demonstrated are scattered senescent parenchymal change. Hyperinflation compatible with COPD. There is no evidence for focal infiltrate. The heart is stable. Hilar and mediastinal structures are within normal limits. Degenerative changes are seen of the dorsal spine. IMPRESSION: 1. Chronic changes without evidence for acute pulmonary disease.
[2021-05-22] MEDS ORDERED: ALBUTEROL HFA INHALER INHALATION SCH (20:00)
[2021-05-22] MEDS: IPRATROPIUM-ALBUTEROL 3 ML NEB INHALATION SCH (20:18)
[2021-05-22] MEDS: MAGNESIUM OXIDE 400 MG TAB PO SCH (21:40)
[2021-05-22] MEDS: ASPIRIN 81 MG PO SCH (21:40)
[2021-05-22] MEDS: FAMOTIDINE 20 MG/2 ML VIAL IV SCH (21:41)
[2021-05-22] MEDS: ATORVASTATIN 20 MG TAB PO SCH (21:41)
[2021-05-22] MEDS: LATANOPROST 0.005% OPHTH DROPS 2.5 ML BTL LEFT EYE SCH (21:52)
--- NOTE | 2021-05-22 22:23 | PN ---
PROGRESS NOTE DATE OF SERVICE: 05/22/2021 REASON FOR FOLLOWUP: Infectious diarrhea. INTERVAL HISTORY: The patient is afebrile. The patient is breathing comfortably. The patient is still complaining of significant diarrhea. no chest pain, shortness of breath or cough. PHYSICAL EXAMINATION: Blood pressure 125/69 with a pulse of 70, temperature 98.4. He is 98% on 3 L nasal cannula. General description is an elderly male up in the bed in no distress. RESPIRATORY SYSTEM: Unlabored breathing. Clear to auscultation anteriorly. HEART: S1, S2. Regular rate and rhythm. ABDOMEN: Soft. Mildly distended. No guarding or rigidity. EXTREMITIES: No edema of the feet. LABS: Hemoglobin 11.3, white count 9.83, creatinine 0.7. Stool culture with Pseudomonas aeruginosa. DIAGNOSTIC IMPRESSION AND PLAN: Patient admitted to hospital with intractable diarrhea, some nausea and vomiting and abdominal discomfort. Stool is showing Pseudomonas, unlikely pathogen for an infectious colitis, but not entirely excluded, especially in a patient not responding to Rocephin and the Flagyl. Antibiotic has been adjusted to cefepime; will see clinical response. Discontinue Rocephin and Flagyl. Continue supportive care. MMODL / IJN: [id number] /
[2021-05-23] MEDS: CEFEPIME 2 GM in SODIUM CHLORIDE 0.9% 100 ML IVPB SCH ×3 (02:27→16:37)
[2021-05-23] MEDS ORDERED: FAMOTIDINE 20 MG TAB PO SCH (02:45)
[2021-05-23] MEDS: IPRATROPIUM-ALBUTEROL 3 ML NEB INHALATION SCH ×4 (07:47→20:48)
[2021-05-23] MEDS: CHOLECALCIFEROL 25 MCG (1000 IU) TABLET PO SCH (08:51)
[2021-05-23] MEDS: HEPARIN SODIUM,PORCINE/PF 5,000 UNIT/0.5 ML SYRINGE SQ SCH ×2 (08:51→21:07)
[2021-05-23] MEDS: TAMSULOSIN 0.4 MG CAP.ER.24H PO SCH (08:52)
[2021-05-23] MEDS: CALCIUM CARB-VIT D 500 MG-5 MCG TAB PO SCH ×2 (08:52→17:19)
[2021-05-23] MEDS: predniSONE 5 MG TAB PO SCH (08:52)
[2021-05-23 09:07] LABS: Basophils # (A) 0.02 X 10*3/uL (0.00-0.10); Basophils % (A) 0.2 %; Eosinophils # (A) 0.17 X 10*3/uL (0.04-0.35); Eosinophils % (A) 2.1 %; HCT 34.9 % (39.6-50.0); HGB 11.5 g/dL (13.0-17.0); Lymphocytes % (A) 15.8 %; MCH 34.1 pg (27.0-32.0); MCV 103.6 fL (80.0-97.0); Mean Platelet Volume 9.9 fL (9.5-12.2); Monocytes # (A) 0.95 X 10*3/uL (0.20-1.00); Monocytes % (A) 11.5 %; Neutrophils # (A) 5.68 X 10*3/uL (1.80-7.70); Neutrophils % (A) 68.8 %; Platelet Count 211 X 10*3/uL (140-440); RBC 3.37 X 10*6/uL (4.40-5.60); RDW 11.9 % (11.5-14.5); WBC 8.25 X 10*3/uL (4.50-10.00)
[2021-05-23 09:40] LABS: African American GFR (CKD) 106.3 (60.0-200.0); Anion Gap 6.4 mmol/L (4.00-12.00); BUN/Creat Ratio 26.17 Ratio (12.00-20.00); Blood Urea Nitrogen 15.7 mg/dL (9.0-27.0); Calcium 8.2 mg/dL (8.7-10.3); Carbon Dioxide 21.6 mmol/L (21.6-31.8); Non-African American GFR(CKD) 91.7 (60.0-200.0)
[2021-05-23] MEDS: CHOLESTYRAMINE (WITH SUGAR) 4 GM PACKET PO SCH ×2 (10:21→17:19)
--- NOTE | 2021-05-23 11:03 | P.PN ---
Progress Note - Text Progress Note Date: 05/23/21 Patient's feels better. He was receiving diagnosis Pseudomonas in his stool culture. Infectious disease is currently seeing the patient. On exam vital signs are stable. Abdomen soft. Patient's having bowel movements. Possible Pseudomonas: Infection. Patient is being worked up by infectious disease. No surgical intervention is planned currently.
--- NOTE | 2021-05-23 14:32 | P.PN ---
Subjective This is a pleasant 86 years old male with past medical history of COPD, Hyperlipidemia, Hypertension, Prostate Disorder, positive occult stool,intermittent diarrhea,wt loss of 50 lbs over last year,hx glaucoma left eye. He follows up with the [place] [facility]. Patient presents because of feeling ill and generally weak for 1 week duration associated with low appetite. Patient had baseline is staying in bed with only very limited surrounding walking period. He is been complaining of from diarrhea about 10-12 times per day with no blood but we will check occult blood in the stool. He has some abdominal pain.. No significant chest pain or dyspnea while sitting in bed. Occasional coughing. No urinary complaints. Patient quit smoking years ago. He drinks every other days but he has not drank over the last week. he has concentrated oxygen at home. Patient on prednisone 5 mg daily and he follows up with Dr. Peacock. He is oxygen saturating 92-94% on 2 L oxygen via nasal cannula. Not tachypneic while in bed. Blood pressure is borderline 95/54. Mild leukocytosis 14 K, creatinine 1.38. He is currently on normal sinus 75 mL/h. Start ceftriaxone and IV Flagyl and hydrocortisone. Start calcium and vitamin D. 05/19/2021 Patient is awake, does not look in distress. Hemodynamically stable. Blood pressure is 113/70. Hyperthermic 97.5. Patient states that his diarrhea is better 5 times per day compared to 10 days on admission, he still has mild periumbilical tenderness. He kept on liquid diet Leukocytosis improved down to 9.2 which is normal. Creatinine is pending. procalcitonin mildly elevated at 0.29. CT of the abdomen and pelvis with oral contrast only showing large bowel ileus, aortic aneurysm 4.5 cm, enlarged prostate with distended urinary bladder 12 cm suspicious for chronic urinary obstruction. Patient remains on ceftriaxone and Flagyl, continue with normal saline, continue with hydrocortisone 50 mg 3 times a day which is stress dose as patient is steroid dependent 05/20/2021 Patient reports improvement today. He feels hungry and tolerating liquid diet and wanted to be advanced to soft diet which is ordered. Distal have diarrhea 51 date severity yesterday however significant back negative. No abdominal pain. Surgery team on the case. His breathing is stable, mildly tachypneic. Repeat chest x-ray today showing chronic changes with no infiltrate. Vitals are stable. Labs are unremarkable including WBC back to 7.8, creatinine remains stable and normal at 0.9. C. diff came back negative. He remains on ceftriaxone and Rocephin. 4 possible gastroenteritis. He remains on stress dose of hydrocortisone. Computed tomography scan showing a large bladder however scan showing only 300. Flomax added. He was started on calcium and vitamin D Check pro-calcitonin tomorrow 05/21/2021 Patient still have diarrhea with no abdominal pain, no nausea vomiting. Patient says that his diarrhea was going on for about a week and a half but his weight loss was more than a year. He follows up with the [place] [facility]. Respiratory symptoms. Hemodynamically stable, blood pressure is low normal. However we will switch his hydrocortisone and to his home dose of prednisone 5 mg daily and monitor his blood pressure closely. Most likely this is his baseline blood pressure. He has mild leukocytosis due to steroid effect. Creatinine normal. Stool culture is pending, occult blood in stool is pending. Stool wbc and elastase are ordered or below they are of usually low yield. Patient remains on ceftriaxone and Flagyl and gentle hydration. Patient concerned about his weight loss but he wants to follow up with Dr. Chan as an outpatient bladder scan was checked is 294 mL postvoid 05/22/2021 Patient tolerates diet and he is having occasional cramps in his left lower quadrant about twice per day lasting less than a minute. Abdominal area about 5-10 times per day. No fever leukocyte is improved after switching history Mr. prednisone 5 mg. Today stool culture came back positive for Pseudomonas. We'll give 1 dose of cefepime and will discuss with ID team about further antibiotics. An event that we'll continue with gentle hydration and GI and DVT prophylaxis. Physical therapist recommended home health care 05/23/2021 Patient is awake and alert. He still have same diarrhea. Still have left lower quadrant tenderness. His culture is growing Pseudomonas. Which is unknown likely cause for gastroenteritis however patient failed to respond to ceftriaxone and Flagyl therefore switch him to cefepime worth a trial and may be beneficial for the patient that looks appropriate. Other than that continue with D5 normal saline. Hemodynamically stable. We will continue to monitor Beavers catheter was placed for urinary retention Objective - Vital Signs Vital signs: Vital Signs Temp 98.2 F 05/23/21 07:29 Pulse 60 05/23/21 11:21 Resp 17 05/23/21 07:29 BP 103/56 05/23/21 07:29 Pulse Ox 100 05/23/21 07:47 Intake & Output 05/22/21 05/23/21 05/23/21 18:59 06:59 18:59 Intake Total 1190 Output Total 1078 700 Balance 112 -700 Intake: Intake, IV Titration 350 Amount Cefepime 2 gm In Sodium 100 Chloride 0.9% 100 ml @ 200 mls/hr IVPB ONCE [facility] Rx#:[id number] cefTRIAXone 1 gm In 50 Sodium Chloride 0.9% 50 ml @ 100 mls/hr IVPB Q24HR [facility] Rx#:[id number] metroNIDAZOLE-NS PMX 500 200 mg In Saline 1 100ml.bag @ 100 mls/hr IVPB Q8HR [facility] Rx#:[id number] Oral 840 Output: Urine 600 700 Uretheral (Beavers) 600 Post Void Residual 478 Other: Voiding Method Indwelling Catheter # Voids 1 # Bowel Movements 1 0 - Exam GENERAL: The patient is alert and oriented x3, not in any acute distress. Well developed, well nourished. HEENT: Pupils are round and equally reacting to light. EOMI. No scleral icterus. No conjunctival pallor. Normocephalic, atraumatic. No pharyngeal erythema. No thyromegaly. CARDIOVASCULAR: S1 and S2 present. No murmurs, rubs, or gallops. -PULMONARY: Chest is clear to auscultation, no wheezing or crackles. The kidney -ABDOMEN: Soft, mild periumbilical tenderness, nondistended, normoactive bowel sounds. No palpable organomegaly. MUSCULOSKELETAL: No joint swelling or deformity. EXTREMITIES: No cyanosis, clubbing, or pedal edema. NEUROLOGICAL: Gross neurological examination did not reveal any focal deficits. SKIN: No rashes. no petechiae. - Labs CBC & Chem 7: 05/23/21 06:18 05/23/21 06:18 Labs: Abnormal Lab Results - Last 24 Hours (Table) 05/23/21 05/23/21 Range/Units 06:18 06:18 RBC 3.37 L (4.40-5.60) X 10*6/uL Hgb 11.5 L (13.0-17.0) g/dL Hct 34.9 L (39.6-50.0) % MCV 103.6 H (80.0-97.0) fL MCH 34.1 H (27.0-32.0) pg Immature Gran # 0.13 H (0.00-0.04) X 10*3/uL BUN/Creatinine Ratio 26.17 H (12.00-20.00) Ratio Calcium 8.2 L (8.7-10.3) mg/dL Microbiology - Last 24 Hours (Table) 05/20/21 04:00 Stool Culture - Final Stool Pseudomonas aeruginosa Assessment and Plan Assessment: mostly patient is with acute gastroenteritis. Stool culture is growing Pseudomonas Large bowel ileus, improving Acute and chronic bladder outlet obstruction, start Flomax Mild acute kidney injury, resolved Generalized weakness and deconditioning COPD with mild exacerbation. Steroid dependent Thoracic vertebral collapse Dehydration and borderline hypertension Plan: This is a pleasant 86 years old male who presents with possible pneumonia, weakness, gait I and gastroenteritis. Continue with antibiotics per ID team and follow-up culture Continue with IV fluid/normal saline continue prednisone Infectious disease and surgery team consult Continue advance diet Add Flomax. Continue with Beavers catheter Labs and medication were reviewed.. Continue same treatment. Continue with symptomatic treatment. Resume home medication. Monitor lytes and vitals. DVT and GI prophylaxis. Further recommendations as per clinical course of the patient DVT prophylaxis: Subcutaneous heparin GI Prophylaxis: Pepcid PT/OT: Home health care Prognosis is guarded
[2021-05-23] MEDS: DEXTROSE 5%-0.9% NACL 1,000 ML IV SCH (16:24)
[2021-05-23] MEDS: FAMOTIDINE 20 MG TAB PO SCH (21:06)
[2021-05-23] MEDS: ASPIRIN 81 MG PO SCH (21:06)
[2021-05-23] MEDS: ATORVASTATIN 20 MG TAB PO SCH (21:06)
[2021-05-23] MEDS: LATANOPROST 0.005% OPHTH DROPS 2.5 ML BTL LEFT EYE SCH (21:07)
[2021-05-23] MEDS: MAGNESIUM OXIDE 400 MG TAB PO SCH (21:07)
--- NOTE | 2021-05-23 21:56 | PN ---
PROGRESS NOTE DATE OF SERVICE: 05/23/2021 REASON FOR FOLLOWUP: Diarrhea with positive stool culture with Pseudomonas. INTERVAL HISTORY: The patient is afebrile. He is breathing comfortably. The patient is complaining of diarrhea which shows no significant improvement. The patient's abdominal pain has improved thought. No nausea, no vomiting. No chest pain, shortness of breath or cough. PHYSICAL EXAMINATION: Blood pressure is 95/55, pulse of 69, temperature 98.4. He is 98% on 2 L nasal cannula. General description is an elderly male lying in bed in no distress. Respiratory system: Unlabored breathing, decreased intensity of breath sounds. No wheeze. Heart S1, S2. Regular rate and rhythm. Abdomen soft, no tenderness. LABS: Hemoglobin 11.5, white count 8.25, creatinine 0.6. DIAGNOSTIC IMPRESSION AND PLAN: Patient admitted to the hospital with acute diarrhea, nausea and vomiting. This patient has been diagnosed with possible bacterial enteritis. Stool with Pseudomonas, not the usual pathogen. Antibiotic will be adjusted to cefepime. We will see response. Continue supportive care. MMODL / IJN: [id number] /
[2021-05-24] MEDS: DEXTROSE 5%-0.9% NACL 1,000 ML IV SCH ×2 (07:04→17:18)
[2021-05-24] MEDS: IPRATROPIUM-ALBUTEROL 3 ML NEB INHALATION SCH ×4 (08:21→20:04)
[2021-05-24] MEDS: CHOLESTYRAMINE (WITH SUGAR) 4 GM PACKET PO SCH ×2 (08:34→17:18)
[2021-05-24] MEDS: CEFEPIME 2 GM in SODIUM CHLORIDE 0.9% 100 ML IVPB SCH ×4 (08:34→15:42)
[2021-05-24] MEDS: TAMSULOSIN 0.4 MG CAP.ER.24H PO SCH (08:34)
[2021-05-24] MEDS: HEPARIN SODIUM,PORCINE/PF 5,000 UNIT/0.5 ML SYRINGE SQ SCH ×2 (08:34→21:03)
[2021-05-24] MEDS: predniSONE 5 MG TAB PO SCH (08:35)
[2021-05-24] MEDS: CALCIUM CARB-VIT D 500 MG-5 MCG TAB PO SCH ×2 (08:35→17:18)
[2021-05-24] MEDS: CHOLECALCIFEROL 25 MCG (1000 IU) TABLET PO SCH (08:35)
--- NOTE | 2021-05-24 10:35 | P.PN ---
Progress Note - Text Progress Note Date: 05/24/21 Patient states he feels better. He denies any nausea vomiting or diarrhea. It looks like he is tolerating a regular diet. On exam vital signs are stable. Abdomen soft. Patient is being treated for pseudomonas infection of stool. Clinically he is looking well. No surgical intervention is planned is planned.
--- NOTE | 2021-05-24 16:21 | P.PN ---
Subjective This is a pleasant 86 years old male with past medical history of COPD, Hyperlipidemia, Hypertension, Prostate Disorder, positive occult stool,intermittent diarrhea,wt loss of 50 lbs over last year,hx glaucoma left eye. He follows up with the [place] [facility]. Patient presents because of feeling ill and generally weak for 1 week duration associated with low appetite. Patient had baseline is staying in bed with only very limited surrounding walking period. He is been complaining of from diarrhea about 10-12 times per day with no blood but we will check occult blood in the stool. He has some abdominal pain.. No significant chest pain or dyspnea while sitting in bed. Occasional coughing. No urinary complaints. Patient quit smoking years ago. He drinks every other days but he has not drank over the last week. he has concentrated oxygen at home. Patient on prednisone 5 mg daily and he follows up with Dr. Peacock. He is oxygen saturating 92-94% on 2 L oxygen via nasal cannula. Not tachypneic while in bed. Blood pressure is borderline 95/54. Mild leukocytosis 14 K, creatinine 1.38. He is currently on normal sinus 75 mL/h. Start ceftriaxone and IV Flagyl and hydrocortisone. Start calcium and vitamin D. 05/19/2021 Patient is awake, does not look in distress. Hemodynamically stable. Blood pressure is 113/70. Hyperthermic 97.5. Patient states that his diarrhea is better 5 times per day compared to 10 days on admission, he still has mild periumbilical tenderness. He kept on liquid diet Leukocytosis improved down to 9.2 which is normal. Creatinine is pending. procalcitonin mildly elevated at 0.29. CT of the abdomen and pelvis with oral contrast only showing large bowel ileus, aortic aneurysm 4.5 cm, enlarged prostate with distended urinary bladder 12 cm suspicious for chronic urinary obstruction. Patient remains on ceftriaxone and Flagyl, continue with normal saline, continue with hydrocortisone 50 mg 3 times a day which is stress dose as patient is steroid dependent 05/20/2021 Patient reports improvement today. He feels hungry and tolerating liquid diet and wanted to be advanced to soft diet which is ordered. Distal have diarrhea 51 date severity yesterday however significant back negative. No abdominal pain. Surgery team on the case. His breathing is stable, mildly tachypneic. Repeat chest x-ray today showing chronic changes with no infiltrate. Vitals are stable. Labs are unremarkable including WBC back to 7.8, creatinine remains stable and normal at 0.9. C. diff came back negative. He remains on ceftriaxone and Rocephin. 4 possible gastroenteritis. He remains on stress dose of hydrocortisone. Computed tomography scan showing a large bladder however scan showing only 300. Flomax added. He was started on calcium and vitamin D Check pro-calcitonin tomorrow 05/21/2021 Patient still have diarrhea with no abdominal pain, no nausea vomiting. Patient says that his diarrhea was going on for about a week and a half but his weight loss was more than a year. He follows up with the [place] [facility]. Respiratory symptoms. Hemodynamically stable, blood pressure is low normal. However we will switch his hydrocortisone and to his home dose of prednisone 5 mg daily and monitor his blood pressure closely. Most likely this is his baseline blood pressure. He has mild leukocytosis due to steroid effect. Creatinine normal. Stool culture is pending, occult blood in stool is pending. Stool wbc and elastase are ordered or below they are of usually low yield. Patient remains on ceftriaxone and Flagyl and gentle hydration. Patient concerned about his weight loss but he wants to follow up with Dr. Chan as an outpatient bladder scan was checked is 294 mL postvoid 05/22/2021 Patient tolerates diet and he is having occasional cramps in his left lower quadrant about twice per day lasting less than a minute. Abdominal area about 5-10 times per day. No fever leukocyte is improved after switching history Mr. prednisone 5 mg. Today stool culture came back positive for Pseudomonas. We'll give 1 dose of cefepime and will discuss with ID team about further antibiotics. An event that we'll continue with gentle hydration and GI and DVT prophylaxis. Physical therapist recommended home health care 05/23/2021 Patient is awake and alert. He still have same diarrhea. Still have left lower quadrant tenderness. His culture is growing Pseudomonas. Which is unknown likely cause for gastroenteritis however patient failed to respond to ceftriaxone and Flagyl therefore switch him to cefepime worth a trial and may be beneficial for the patient that looks appropriate. Other than that continue with D5 normal saline. Hemodynamically stable. We will continue to monitor Beavers catheter was placed for urinary retention 05/24/2021 Today his first day patient reports improvement," might diarrhea is slowing down" he had several bouts of bowel movement of diarrhea yesterday however is better this morning. This is after antibiotics were adjusted to cefepime. However we will keep monitoring to ensure resolution and significant improvement. Other than that he is hemodynamically and labs are stable. Patient wants to be DO NOT RESUSCITATE Objective - Vital Signs Vital signs: Vital Signs Temp 98.5 F 05/24/21 14:00 Pulse 68 05/24/21 16:07 Resp 12 05/24/21 14:00 BP 113/64 05/24/21 14:00 Pulse Ox 99 05/24/21 14:00 Intake & Output 05/23/21 05/24/21 05/24/21 18:59 06:59 18:59 Intake Total 725 Output Total 540 600 520 Balance 185 -600 -520 Intake: IV 225 Dextrose 5%-0.9% NaCl 1, 225 000 ml @ 75 mls/hr IV . [id number] [facility] Rx#:[id number] Oral 500 Output: Urine 540 600 520 Uretheral (Beavers) 540 520 Other: Voiding Method Indwelling Catheter Indwelling Catheter Indwelling Catheter # Bowel Movements 2 1 - Exam GENERAL: The patient is alert and oriented x3, not in any acute distress. Well developed, well nourished. HEENT: Pupils are round and equally reacting to light. EOMI. No scleral icterus. No conjunctival pallor. Normocephalic, atraumatic. No pharyngeal erythema. No thyromegaly. CARDIOVASCULAR: S1 and S2 present. No murmurs, rubs, or gallops. -PULMONARY: Chest is clear to auscultation, no wheezing or crackles. The kidney -ABDOMEN: Soft, mild periumbilical tenderness, nondistended, normoactive bowel sounds. No palpable organomegaly. MUSCULOSKELETAL: No joint swelling or deformity. EXTREMITIES: No cyanosis, clubbing, or pedal edema. NEUROLOGICAL: Gross neurological examination did not reveal any focal deficits. SKIN: No rashes. no petechiae. - Labs CBC & Chem 7: 05/23/21 06:18 05/23/21 06:18 Assessment and Plan Assessment: mostly patient is with acute gastroenteritis. Stool culture is growing Pseudomonas Large bowel ileus, improving Acute and chronic bladder outlet obstruction, start Flomax Mild acute kidney injury, resolved Generalized weakness and deconditioning COPD with mild exacerbation. Steroid dependent Thoracic vertebral collapse Dehydration and borderline hypertension Plan: This is a pleasant 86 years old male who presents with possible pneumonia, weakness, gait I and gastroenteritis. Continue with antibiotics per ID team and follow-up culture Continue with IV fluid/normal saline continue prednisone Infectious disease and surgery team consult Continue advance diet Add Flomax. Continue with Beavers catheter Labs and medication were reviewed.. Continue same treatment. Continue with symptomatic treatment. Resume home medication. Monitor lytes and vitals. DVT and GI prophylaxis. Further recommendations as per clinical course of the patient DVT prophylaxis: Subcutaneous heparin GI Prophylaxis: Pepcid PT/OT: Home health care Prognosis is guarded
[2021-05-24] MEDS: ASPIRIN 81 MG PO SCH (21:02)
[2021-05-24] MEDS: FAMOTIDINE 20 MG TAB PO SCH (21:03)
[2021-05-24] MEDS: ATORVASTATIN 20 MG TAB PO SCH (21:03)
[2021-05-24] MEDS: MAGNESIUM OXIDE 400 MG TAB PO SCH (21:03)
[2021-05-24] MEDS: LATANOPROST 0.005% OPHTH DROPS 2.5 ML BTL LEFT EYE SCH (21:03)
--- NOTE | 2021-05-24 22:08 | PN ---
PROGRESS NOTE DATE OF SERVICE: 05/24/2021 REASON FOR FOLLOWUP: Pseudomonas bacterial gastroenteritis. INTERVAL HISTORY: The patient is afebrile. The patient is breathing comfortably. No nausea, no vomiting. The patient's diarrhea has slowed down. No chest pain, shortness of breath or cough. No urinary symptoms. PHYSICAL EXAMINATION: Blood pressure 113/64, pulse of 73, temperature 98.5. He is 99% on 3 L nasal cannula. General description is an elderly male lying in bed in no distress. RESPIRATORY SYSTEM: Unlabored breathing. Clear to auscultation anteriorly. HEART: S1, S2. Regular rate and rhythm. ABDOMEN: Soft. No tenderness. LABS: Hemoglobin is 11.4, white count 8.25, creatinine 0.6. DIAGNOSTIC IMPRESSION AND PLAN: Patient admitted to hospital with acute nausea, vomiting, diarrhea with concern for bacterial gastroenteritis. Stool has been finalized with Pseudomonas. The patient did not respond to the Rocephin and Flagyl; however, clinically responding to cefepime. Will wait for the sensitivity to determine discharge antibiotics. Continue with supportive care. MMODL / IJN: [id number] /
[2021-05-25] MEDS: CEFEPIME 2 GM in SODIUM CHLORIDE 0.9% 100 ML IVPB SCH ×4 (00:17→23:42)
[2021-05-25] MEDS: IPRATROPIUM-ALBUTEROL 3 ML NEB INHALATION SCH ×4 (08:29→21:21)
[2021-05-25] MEDS: TAMSULOSIN 0.4 MG CAP.ER.24H PO SCH (09:03)
[2021-05-25] MEDS: CHOLECALCIFEROL 25 MCG (1000 IU) TABLET PO SCH (09:03)
[2021-05-25] MEDS: CHOLESTYRAMINE (WITH SUGAR) 4 GM PACKET PO SCH ×2 (09:03→17:45)
[2021-05-25] MEDS: CALCIUM CARB-VIT D 500 MG-5 MCG TAB PO SCH ×2 (09:03→17:45)
[2021-05-25] MEDS: predniSONE 5 MG TAB PO SCH (09:03)
[2021-05-25] MEDS: HEPARIN SODIUM,PORCINE/PF 5,000 UNIT/0.5 ML SYRINGE SQ SCH ×2 (09:03→21:08)
--- NOTE | 2021-05-25 12:00 | P.PN ---
Subjective Progress Note Date: 05/25/21 CHIEF COMPLAINT: Ileus HISTORY OF PRESENT ILLNESS: Surgical service is following in regards to patient's large bowel ileus. Patient denies any abdominal pain. His diarrhea showing improvement. He's had decrease in amount of stools and they're becoming more formed. Denies any nausea or vomiting. Denies any abdominal pain. He is tolerating regular diet. Afebrile. Patient seen and examined with Dr. fierro PHYSICAL EXAM: VITAL SIGNS: Reviewed. GENERAL: Well-developed in no acute distress. HEENT: No sclera icterus. Extraocular movements grossly intact. Moist buccal mucosa. Head is atraumatic, normocephalic. ABDOMEN: Soft. Nondistended. Nontender NEUROLOGIC: Alert and oriented. Cranial nerves II through XII grossly intact. ASSESSMENT: 1. Possible large bowel ileus resolved 2. Pseudomonas gastroenteritis PLAN: -Continue regular diet -Continue supportive care -Antibiotics per ID service -No surgical intervention planned Physician Civil Engineering Project Designer note has been reviewed by physician. Signing provider agrees with the documented findings, assessment, and plan of care. Objective - Vital Signs Vital signs: Vital Signs Temp 98.4 F 05/25/21 07:37 Pulse 72 05/25/21 11:41 Resp 16 05/25/21 07:37 BP 96/49 05/25/21 07:37 Pulse Ox 98 05/25/21 07:37 Intake & Output 05/24/21 05/25/21 05/25/21 18:59 06:59 18:59 Intake Total 1400 Output Total 860 600 Balance 540 -600 Intake: IV 600 Dextrose 5%-0.9% NaCl 1, 600 000 ml @ 50 mls/hr IV . Q20H [facility] Rx#:[id number] Oral 800 Output: Urine 860 600 Uretheral (Beavers) 860 Other: Voiding Method Indwelling Catheter Indwelling Catheter Indwelling Catheter # Bowel Movements 1 1 - Labs CBC & Chem 7: 05/23/21 06:18 05/23/21 06:18
[2021-05-25] MEDS: DEXTROSE 5%-0.9% NACL 1,000 ML IV SCH (12:32)
--- NOTE | 2021-05-25 15:00 | PN ---
PROGRESS NOTE DATE OF SERVICE: 05/25/2021 REASON FOR FOLLOWUP: Pseudomonas gastroenteritis. INTERVAL HISTORY: The patient is afebrile. He is feeling slightly better. The patient's diarrhea has decreased in frequency. No abdominal pain. No nausea, vomiting. No chest pain, shortness of breath or cough. PHYSICAL EXAMINATION: Blood pressure 96/49, pulse of 63, temperature 98.4. He is 98% on 2 L nasal cannula. General description is an elderly male up in the chair in no distress. Respiratory system: Unlabored breathing, clear to auscultation anteriorly. Heart S1, S2. Regular rate and rhythm. Abdomen soft, no tenderness. LABS: Hemoglobin 11.1, white count 8.25, creatinine 0.6. DIAGNOSTIC IMPRESSION AND PLAN: Patient admitted to the hospital acute gastroenteritis with frequent diarrhea. Did not respond Rocephin and Flagyl, however, responded to cefepime with the stool showing Pseudomonas, sensitivities pending, will adjust antibiotic. MMODL / IJN: [id number] /
[2021-05-25] MEDS: LATANOPROST 0.005% OPHTH DROPS 2.5 ML BTL LEFT EYE SCH (21:06)
[2021-05-25] MEDS: MAGNESIUM OXIDE 400 MG TAB PO SCH (21:07)
[2021-05-25] MEDS: FAMOTIDINE 20 MG TAB PO SCH ×2 (21:07→21:08)
[2021-05-25] MEDS: ATORVASTATIN 20 MG TAB PO SCH (21:08)
[2021-05-25] MEDS: ASPIRIN 81 MG PO SCH (21:08)
--- NOTE | 2021-05-26 02:26 | P.PN ---
Subjective Progress Note Date: 05/25/21 This is a pleasant 86 years old male with past medical history of COPD, Hyperlipidemia, Hypertension, Prostate Disorder, positive occult stool,intermittent diarrhea,wt loss of 50 lbs over last year,hx glaucoma left eye. [facility]. Patient presents because of feeling ill and generally weak for 1 week duration associated with low appetite. Patient had baseline is staying in bed with only very limited surrounding walking period. He is been complaining of from diarrhea about 10-12 times per day with no blood but we will check occult blood in the stool. He has some abdominal pain.. No significant chest pain or dyspnea while sitting in bed. Occasional coughing. No urinary complaints. Patient quit smoking years ago. He drinks every other days but he has not drank over the last week. he has concentrated oxygen at home. Patient on prednisone 5 mg daily and he follows up with Dr. Peacock. He is oxygen saturating 92-94% on 2 L oxygen via nasal cannula. Not tachypneic while in bed. Blood pressure is borderline 95/54. Mild leukocytosis 14 K, creatinine 1.38. He is currently on normal sinus 75 mL/h. Start ceftriaxone and IV Flagyl and hydrocortisone. Start calcium and vitamin D. 05/19/2021 Patient is awake, does not look in distress. Hemodynamically stable. Blood pressure is 113/70. Hyperthermic 97.5. Patient states that his diarrhea is better 5 times per day compared to 10 days on admission, he still has mild periumbilical tenderness. He kept on liquid diet Leukocytosis improved down to 9.2 which is normal. Creatinine is pending. procalcitonin mildly elevated at 0.29. CT of the abdomen and pelvis with oral contrast only showing large bowel ileus, aortic aneurysm 4.5 cm, enlarged prostate with distended urinary bladder 12 cm suspicious for chronic urinary obstruction. Patient remains on ceftriaxone and Flagyl, continue with normal saline, continue with hydrocortisone 50 mg 3 times a day which is stress dose as patient is steroid dependent 05/20/2021 Patient reports improvement today. He feels hungry and tolerating liquid diet and wanted to be advanced to soft diet which is ordered. Distal have diarrhea 51 date severity yesterday however significant back negative. No abdominal pain. Surgery team on the case. His breathing is stable, mildly tachypneic. Repeat chest x-ray today showing chronic changes with no infiltrate. Vitals are stable. Labs are unremarkable including WBC back to 7.8, creatinine remains stable and normal at 0.9. C. diff came back negative. He remains on ceftriaxone and Rocephin. 4 possible gastroenteritis. He remains on stress dose of hydrocortisone. Computed tomography scan showing a large bladder however scan showing only 300. Flomax added. He was started on calcium and vitamin D Check pro-calcitonin tomorrow 05/21/2021 Patient still have diarrhea with no abdominal pain, no nausea vomiting. Patient says that his diarrhea was going on for about a week and a half but his weight loss was more than a year. He [facility]. Respiratory symptoms. Hemodynamically stable, blood pressure is low normal. However we will switch his hydrocortisone and to his home dose of prednisone 5 mg daily and monitor his blood pressure closely. Most likely this is his baseline blood pressure. He has mild leukocytosis due to steroid effect. Creatinine normal. Stool culture is pending, occult blood in stool is pending. Stool wbc and elastase are ordered or below they are of usually low yield. Patient remains on ceftriaxone and Flagyl and gentle hydration. Patient concerned about his weight loss but he wants to follow up with Dr. Chan as an outpatient bladder scan was checked is 294 mL postvoid 05/22/2021 Patient tolerates diet and he is having occasional cramps in his left lower quadrant about twice per day lasting less than a minute. Abdominal area about 5-10 times per day. No fever leukocyte is improved after switching history Mr. prednisone 5 mg. Today stool culture came back positive for Pseudomonas. We'll give 1 dose of cefepime and will discuss with ID team about further antibiotics. An event that we'll continue with gentle hydration and GI and DVT prophylaxis. Physical therapist recommended home health care 05/23/2021 Patient is awake and alert. He still have same diarrhea. Still have left lower quadrant tenderness. His culture is growing Pseudomonas. Which is unknown likely cause for gastroenteritis however patient failed to respond to ceftriaxone and Flagyl therefore switch him to cefepime worth a trial and may be beneficial for the patient that looks appropriate. Other than that continue with D5 normal saline. Hemodynamically stable. We will continue to monitor Smith catheter was placed for urinary retention 05/24/2021 Today his first day patient reports improvement," might diarrhea is slowing down" he had several bouts of bowel movement of diarrhea yesterday however is better this morning. This is after antibiotics were adjusted to cefepime. However we will keep monitoring to ensure resolution and significant improvement. Other than that he is hemodynamically and labs are stable. Patient wants to be DO NOT RESUSCITATE 05/25/2021 Patient is seen and evaluated in follow up this morning and continues on IV cefepime with ID and surgery following closely. Patient continues with loose stools and becoming less frequent and more formed. Patient was evaluated by PT/OT and will be going to [facility] with possible home care. Labs: WBC is 8.25, hgb is 11.5, sodium is 137, potassium is 4.0, creatinine is 0.6 Review of systems: Constitutional: No reports of fatigue, fever, or chills Cardiovascular: No reports of chest pain or palpitations Respiratory: No reports of shortness of breath or cough GI: No reports of nausea, vomiting, reports more formed stool and less frequent episodes : No reports of dysuria or retention Neurovascular: No reports of weakness or numbness All medications have been reviewed Active Medications Acetaminophen (Acetaminophen Tab 500 Mg Tab) 500 mg PO Q8H PRN PRN Reason: Fever and/ or Pain Last Admin: 05/21/21 09:19 Dose: 500 mg Documented by: Albuterol/Ipratropium (Ipratropium-Albuterol 3 Ml Neb) 3 ml INHALATION RT-QID [facility] Last Admin: 05/25/21 11:30 Dose: 3 ml Documented by: Aspirin (Aspirin 81 Mg) 81 mg PO [facility] Last Admin: 05/24/21 21:02 Dose: 81 mg Documented by: Atorvastatin Calcium (Atorvastatin 20 Mg Tab) 20 mg PO [facility] Last Admin: 05/24/21 21:03 Dose: 20 mg Documented by: Calcium Carbonate (Calcium Carb-Vit D 500 Mg-5 Mcg Tab) 1 each PO BID-W/MEALS [facility] Last Admin: 05/25/21 09:03 Dose: 1 each Documented by: Cholecalciferol (Cholecalciferol 25 Mcg (1000 Iu) Tablet) 25 mcg PO DAILY [facility] Last Admin: 05/25/21 09:03 Dose: 25 mcg Documented by: Cholestyramine Resin (Cholestyramine (With Sugar) 4 Gm Packet) 4 gm PO BID@1000,1800 [facility] Last Admin: 05/25/21 09:03 Dose: 4 gm Documented by: Famotidine (Famotidine 20 Mg Tab) 20 mg PO Q24H [facility] Last Admin: 05/24/21 21:03 Dose: 20 mg Documented by: Heparin Sodium (Porcine) (Heparin Sodium,Porcine/Pf 5,000 Unit/0.5 Ml Syringe) 5,000 unit SQ Q12HR [facility] Last Admin: 05/25/21 09:03 Dose: 5,000 unit Documented by: Cefepime HCl 2 gm/ Sodium (Chloride) 100 mls @ 25 mls/hr IVPB Q8HR [facility] Last Admin: 05/25/21 09:03 Dose: 25 mls/hr Documented by: Dextrose/Sodium Chloride (Dextrose 5%-Ns Iv Soln) 1,000 mls @ 50 mls/hr IV .Q20H [facility] Last Admin: 05/25/21 12:32 Dose: 50 mls/hr Documented by: Latanoprost (Latanoprost 0.005% Ophth Drops 2.5 Ml Btl) 1 drops LEFT EYE HS [facility] Last Admin: 05/24/21 21:03 Dose: 1 drops Documented by: Magnesium Oxide (Magnesium Oxide 400 Mg Tab) 200 mg PO HS [facility] Last Admin: 05/24/21 21:03 Dose: 200 mg Documented by: Prednisone (Prednisone 5 Mg Tab) 5 mg PO DAILY [facility] Last Admin: 05/25/21 09:03 Dose: 5 mg Documented by: Tamsulosin HCl (Tamsulosin 0.4 Mg Cap.Er.24h) 0.4 mg PO PC-BRKFST [facility] Last Admin: 05/25/21 09:03 Dose: 0.4 mg Documented by: Physical exam: GENERAL: The patient is alert and oriented x3, not in any acute distress. Well developed, well nourished. HEENT: Pupils are round and equally reacting to light. EOMI. No scleral icterus. No conjunctival pallor. Normocephalic, atraumatic. No pharyngeal erythema. No thyromegaly. CARDIOVASCULAR: S1 and S2 present. No murmurs, rubs, or gallops. PULMONARY: Chest is clear to auscultation, no wheezing or crackles. ABDOMEN: Soft, no tenderness noted on exam, nondistended, normoactive bowel soun ds. No palpable organomegaly. MUSCULOSKELETAL: No joint swelling or deformity. EXTREMITIES: No cyanosis, clubbing, or pedal edema. NEUROLOGICAL: Gross neurological examination did not reveal any focal deficits. SKIN: No rashes. no petechiae. Assessment: abdominal pain with acute gastroenteritis. Stool culture finalized Pseudomonas Large bowel ileus, improved Acute and chronic bladder outlet obstruction, start Flomax Mild acute kidney injury, resolved Generalized weakness and deconditioning COPD with mild exacerbation. Steroid dependent Thoracic vertebral collapse Dehydration borderline hypertension GI prophylaxis DVT prophylaxis No code Plan: This is a pleasant 86 years old male who presents with possible pneumonia, weakness, gait dysfunction and gastroenteritis. ID following and continued on IV cefepime and will discuss discharge antibiotics. Stool culture finalized pseudomonas aeruginosa. Hopeful for oral antibiotics on discharge. Continue questran. Surgery following and recommending outpatient follow up with GI upon discharge. Indwelling smith catheter for urinary retention and continue flomax. Urology follow up outpatient. Per social work and case management patient will be going to [facility] with home care. Encouraged oral intake and increased activity as tolerated. Anticipate discharge in 24 hours. Objective - Vital Signs Vital signs: Vital Signs Temp 98.4 F 05/25/21 07:37 Pulse 68 05/25/21 08:37 Resp 16 05/25/21 07:37 BP 96/49 05/25/21 07:37 Pulse Ox 98 05/25/21 07:37 Intake & Output 05/24/21 05/25/21 05/25/21 18:59 06:59 18:59 Intake Total 1400 Output Total 860 600 Balance 540 -600 Intake: IV 600 Dextrose 5%-0.9% NaCl 1, 600 000 ml @ 50 mls/hr IV . Q20H [facility] Rx#:[id number] Oral 800 Output: Urine 860 600 Uretheral (Smith) 860 Other: Voiding Method Indwelling Catheter Indwelling Catheter Indwelling Catheter # Bowel Movements 1 1 - Labs CBC & Chem 7: 05/23/21 06:18 05/23/21 06:18
[2021-05-26] MEDS: IPRATROPIUM-ALBUTEROL 3 ML NEB INHALATION SCH ×4 (06:56→22:19)
[2021-05-26] MEDS: CALCIUM CARB-VIT D 500 MG-5 MCG TAB PO SCH ×2 (11:00→16:52)
[2021-05-26] MEDS: CEFEPIME 2 GM in SODIUM CHLORIDE 0.9% 100 ML IVPB SCH ×2 (11:00→13:40)
[2021-05-26] MEDS: CHOLECALCIFEROL 25 MCG (1000 IU) TABLET PO SCH (11:00)
[2021-05-26] MEDS: TAMSULOSIN 0.4 MG CAP.ER.24H PO SCH (11:00)
[2021-05-26] MEDS: HEPARIN SODIUM,PORCINE/PF 5,000 UNIT/0.5 ML SYRINGE SQ SCH ×2 (11:00→21:17)
[2021-05-26] MEDS: CHOLESTYRAMINE (WITH SUGAR) 4 GM PACKET PO SCH ×2 (11:07→16:52)
[2021-05-26] MEDS: predniSONE 5 MG TAB PO SCH (11:07)
--- NOTE | 2021-05-26 13:16 | P.PN ---
Subjective Progress Note Date: 05/26/21 CHIEF COMPLAINT: Ileus HISTORY OF PRESENT ILLNESS: Surgical service is following in regards to patient's large bowel ileus. Patient denies any abdominal pain. His diarrhea showing improvement. Denies any nausea or vomiting. He is tolerating regular diet. Afebrile. Patient seen and examined with Dr. fierro PHYSICAL EXAM: VITAL SIGNS: Reviewed. GENERAL: Well-developed in no acute distress. HEENT: No sclera icterus. Extraocular movements grossly intact. Moist buccal mucosa. Head is atraumatic, normocephalic. ABDOMEN: Soft. Nondistended. Nontender NEUROLOGIC: Alert and oriented. Cranial nerves II through XII grossly intact. ASSESSMENT: 1. Possible large bowel ileus resolved 2. Pseudomonas gastroenteritis PLAN: -Continue regular diet -Continue supportive care -Antibiotics per ID service -No surgical intervention planned -Patient can be discharged surgical standpoint when medically cleared Physician Tassel Clipper note has been reviewed by physician. Signing provider agrees with the documented findings, assessment, and plan of care. Objective - Vital Signs Vital signs: Vital Signs Temp 98.9 F 05/26/21 01:02 Pulse 76 05/26/21 10:58 Resp 18 05/26/21 08:45 BP 108/64 05/26/21 08:45 Pulse Ox 99 05/26/21 08:45 Intake & Output 05/25/21 05/26/21 05/26/21 18:59 06:59 18:59 Output Total 500 300 Balance -500 -300 Output: Urine 500 300 Other: Voiding Method Indwelling Catheter Indwelling Catheter Indwelling Catheter # Bowel Movements 1 1 - Labs CBC & Chem 7: 05/23/21 06:18 05/23/21 06:18 Labs: Abnormal Lab Results - Last 24 Hours (Table) 05/21/21 Range/Units 12:55 Stool Calprotectin >3,000.0 H (<50) mcg/g Microbiology - Last 24 Hours (Table) 05/20/21 04:00 Stool Culture - Final Stool Pseudomonas aeruginosa
--- NOTE | 2021-05-26 15:09 | P.PN ---
Subjective Progress Note Date: 05/26/21 This is a pleasant 86 years old male with past medical history of COPD, Hyperlipidemia, Hypertension, Prostate Disorder, positive occult stool,intermittent diarrhea,wt loss of 50 lbs over last year,hx glaucoma left eye. [facility] Patient presents because of feeling ill and generally weak for 1 week duration associated with low appetite. Patient had baseline is staying in bed with only very limited surrounding walking period. He is been complaining of from diarrhea about 10-12 times per day with no blood but we will check occult blood in the stool. He has some abdominal pain.. No significant chest pain or dyspnea while sitting in bed. Occasional coughing. No urinary complaints. Patient quit smoking years ago. He drinks every other days but he has not drank over the last week. he has concentrated oxygen at home. Patient on prednisone 5 mg daily and he follows up with Dr. Peacock. He is oxygen saturating 92-94% on 2 L oxygen via nasal cannula. Not tachypneic while in bed. Blood pressure is borderline 95/54. Mild leukocytosis 14 K, creatinine 1.38. He is currently on normal sinus 75 mL/h. Start ceftriaxone and IV Flagyl and hydrocortisone. Start calcium and vitamin D. 05/19/2021 Patient is awake, does not look in distress. Hemodynamically stable. Blood pressure is 113/70. Hyperthermic 97.5. Patient states that his diarrhea is better 5 times per day compared to 10 days on admission, he still has mild periumbilical tenderness. He kept on liquid diet Leukocytosis improved down to 9.2 which is normal. Creatinine is pending. procalcitonin mildly elevated at 0.29. CT of the abdomen and pelvis with oral contrast only showing large bowel ileus, aortic aneurysm 4.5 cm, enlarged prostate with distended urinary bladder 12 cm suspicious for chronic urinary obstruction. Patient remains on ceftriaxone and Flagyl, continue with normal saline, continue with hydrocortisone 50 mg 3 times a day which is stress dose as patient is steroid dependent 05/20/2021 Patient reports improvement today. He feels hungry and tolerating liquid diet and wanted to be advanced to soft diet which is ordered. Distal have diarrhea 51 date severity yesterday however significant back negative. No abdominal pain. Surgery team on the case. His breathing is stable, mildly tachypneic. Repeat chest x-ray today showing chronic changes with no infiltrate. Vitals are stable. Labs are unremarkable including WBC back to 7.8, creatinine remains stable and normal at 0.9. C. diff came back negative. He remains on ceftriaxone and Rocephin. 4 possible gastroenteritis. He remains on stress dose of hydrocortisone. Computed tomography scan showing a large bladder however scan showing only 300. Flomax added. He was started on calcium and vitamin D Check pro-calcitonin tomorrow 05/21/2021 Patient still have diarrhea with no abdominal pain, no nausea vomiting. Patient says that his diarrhea was going on for about a week and a half but his weight loss was more than a year. He [facility] with [facility]. Respiratory symptoms. Hemodynamically stable, blood pressure is low normal. However we will switch his hydrocortisone and to his home dose of prednisone 5 mg daily and monitor his blood pressure closely. Most likely this is his baseline blood pressure. He has mild leukocytosis due to steroid effect. Creatinine normal. Stool culture is pending, occult blood in stool is pending. Stool wbc and elastase are ordered or below they are of usually low yield. Patient remains on ceftriaxone and Flagyl and gentle hydration. Patient concerned about his weight loss but he wants to follow up with Dr. Chan as an outpatient bladder scan was checked is 294 mL postvoid 05/22/2021 Patient tolerates diet and he is having occasional cramps in his left lower quadrant about twice per day lasting less than a minute. Abdominal area about 5-10 times per day. No fever leukocyte is improved after switching history Mr. prednisone 5 mg. Today stool culture came back positive for Pseudomonas. We'll give 1 dose of cefepime and will discuss with ID team about further antibiotics. An event that we'll continue with gentle hydration and GI and DVT prophylaxis. Physical therapist recommended home health care 05/23/2021 Patient is awake and alert. He still have same diarrhea. Still have left lower quadrant tenderness. His culture is growing Pseudomonas. Which is unknown likely cause for gastroenteritis however patient failed to respond to ceftriaxone and Flagyl therefore switch him to cefepime worth a trial and may be beneficial for the patient that looks appropriate. Other than that continue with D5 normal saline. Hemodynamically stable. We will continue to monitor Smith catheter was placed for urinary retention 05/24/2021 Today his first day patient reports improvement," might diarrhea is slowing down" he had several bouts of bowel movement of diarrhea yesterday however is better this morning. This is after antibiotics were adjusted to cefepime. However we will keep monitoring to ensure resolution and significant improvement. Other than that he is hemodynamically and labs are stable. Patient wants to be DO NOT RESUSCITATE 05/25/2021 Patient is seen and evaluated in follow up this morning and continues on IV cefepime with ID and surgery following closely. Patient continues with loose stools and becoming less frequent and more formed. Patient was evaluated by PT/OT and will be going to [facility] with possible home care. 05/26/2021 Patient is seen in follow-up this morning continues to have mild loose stools although has improved and less severe. Patient states he had episode of acid reflux yesterday after eating and will reorder Protonix. Patient is continued on Pepcid and will continue. Patient's stool culture showing pseudomonas aeruginosa with infectious disease following closely. IV antibiotics have been discontinued and we'll continue to monitor the patient closely off antibiotic therapy. Infectious disease is following. Patient also continues on Questran at this time. Review of systems: Constitutional: No reports of fatigue, fever, or chills Cardiovascular: No reports of chest pain or palpitations Respiratory: No reports of shortness of breath or cough GI: No reports of nausea, vomiting, reports more formed stool and less frequent episodes : No reports of dysuria or retention Neurovascular: No reports of weakness or numbness All medications have been reviewed Active Medications Acetaminophen (Acetaminophen Tab 500 Mg Tab) 500 mg PO Q8H PRN PRN Reason: Fever and/ or Pain Last Admin: 05/21/21 09:19 Dose: 500 mg Documented by: Albuterol/Ipratropium (Ipratropium-Albuterol 3 Ml Neb) 3 ml INHALATION RT-QID S Last Admin: 05/26/21 10:47 Dose: 3 ml Documented by: Aspirin (Aspirin 81 Mg) 81 mg PO [facility] Last Admin: 05/25/21 21:08 Dose: 81 mg Documented by: Atorvastatin Calcium (Atorvastatin 20 Mg Tab) 20 mg PO [facility] Last Admin: 05/25/21 21:08 Dose: 20 mg Documented by: Calcium Carbonate (Calcium Carb-Vit D 500 Mg-5 Mcg Tab) 1 each PO BID-W/MEALS [facility] Last Admin: 05/26/21 11:00 Dose: 1 each Documented by: Cholecalciferol (Cholecalciferol 25 Mcg (1000 Iu) Tablet) 25 mcg PO DAILY [facility] Last Admin: 05/26/21 11:00 Dose: 25 mcg Documented by: Cholestyramine Resin (Cholestyramine (With Sugar) 4 Gm Packet) 4 gm PO BID@1000,1800 [facility] Last Admin: 05/26/21 11:07 Dose: 4 gm Documented by: Famotidine (Famotidine 20 Mg Tab) 20 mg PO Q24H [facility] Last Admin: 05/25/21 21:08 Dose: 20 mg Documented by: Heparin Sodium (Porcine) (Heparin Sodium,Porcine/Pf 5,000 Unit/0.5 Ml Syringe) 5,000 unit SQ Q12HR [facility] Last Admin: 05/26/21 11:00 Dose: 5,000 unit Documented by: Latanoprost (Latanoprost 0.005% Ophth Drops 2.5 Ml Btl) 1 drops LEFT EYE HS [facility] Last Admin: 05/25/21 21:06 Dose: 1 drops Documented by: Magnesium Oxide (Magnesium Oxide 400 Mg Tab) 200 mg PO HS [facility] Last Admin: 05/25/21 21:07 Dose: 200 mg Documented by: Pantoprazole Sodium (Pantoprazole 40 Mg Tablet) 40 mg PO AC-BID [facility] Prednisone (Prednisone 5 Mg Tab) 5 mg PO DAILY [facility] Last Admin: 05/26/21 11:07 Dose: 5 mg Documented by: Tamsulosin HCl (Tamsulosin 0.4 Mg Cap.Er.24h) 0.4 mg PO PC-BRKFST [facility] Last Admin: 05/26/21 11:00 Dose: 0.4 mg Documented by: Physical exam: GENERAL: The patient is alert and oriented x3, not in any acute distress. Well developed, well nourished. HEENT: Pupils are round and equally reacting to light. EOMI. No scleral icterus. No conjunctival pallor. Normocephalic, atraumatic. No pharyngeal erythema. No thyromegaly. CARDIOVASCULAR: S1 and S2 present. No murmurs, rubs, or gallops. PULMONARY: Chest is clear to auscultation, no wheezing or crackles. ABDOMEN: Soft, no tenderness noted on exam, non-distended, normoactive bowel sounds. No palpable organomegaly. MUSCULOSKELETAL: No joint swelling or deformity. EXTREMITIES: No cyanosis, clubbing, or pedal edema. NEUROLOGICAL: Gross neurological examination did not reveal any focal deficits. SKIN: No rashes. no petechiae. Assessment: abdominal pain with acute gastroenteritis. Stool culture finalized Pseudomonas Large bowel ileus, improved Acute and chronic bladder outlet obstruction, start Flomax Mild acute kidney injury, resolved Generalized weakness and deconditioning COPD with mild exacerbation. Steroid dependent Thoracic vertebral collapse Dehydration borderline hypertension GI prophylaxis DVT prophylaxis No code Plan: This is a pleasant 86 years old male who presents with possible pneumonia, weakness, gait dysfunction and gastroenteritis. ID following and patient was maintained on IV cefepime and antibiotics have been discontinued with infectious disease following closely recommending close observation off of antibiotics.. Stool culture finalized pseudomonas aeruginosa. Continue questran. Surgery following and recommending outpatient follow up with GI upon discharge. Indwelling smith catheter for urinary retention and continue flomax. Urology follow up outpatient. Per social work and case management patient will be going to [facility] with home care. Encouraged oral intake and increased activity as tolerated. Will repeat a.m. labs. Anticipate discharge in 24 hours. Objective - Vital Signs Vital signs: Vital Signs Temp 98.9 F 05/26/21 01:02 Pulse 70 05/26/21 06:56 Resp 14 05/26/21 01:02 BP 104/58 05/26/21 01:02 Pulse Ox 100 05/26/21 01:02 Intake & Output 05/25/21 05/26/21 05/26/21 18:59 06:59 18:59 Output Total 500 300 Balance -500 -300 Output: Urine 500 300 Other: Voiding Method Indwelling Catheter Indwelling Catheter # Bowel Movements 1 1 - Labs CBC & Chem 7: 05/23/21 06:18 05/23/21 06:18 Labs: Abnormal Lab Results - Last 24 Hours (Table) 05/21/21 Range/Units 12:55 Stool Calprotectin >3,000.0 H (<50) mcg/g Microbiology - Last 24 Hours (Table) 05/20/21 04:00 Stool Culture - Final Stool Pseudomonas aeruginosa
[2021-05-26] MEDS: PANTOPRAZOLE 40 MG TABLET PO SCH ×2 (16:46→16:51)
--- NOTE | 2021-05-26 18:53 | PN ---
PROGRESS NOTE DATE OF SERVICE: 05/26/2021 REASON FOR FOLLOWUP: Diarrhea and a positive stool culture. INTERVAL HISTORY: The patient is afebrile. The patient is complaining of diarrhea; she mentioned yesterday that the diarrhea was improving. Did have 2 bowel movements last night and 2 this morning. abdominal pain. No nausea, no vomiting. PHYSICAL EXAMINATION: Blood pressure 96/55 with a pulse of 98, temperature 98.7. He is 96% on room air. General description is an elderly male lying in bed in no distress. RESPIRATORY SYSTEM: Unlabored breathing. Clear to auscultation anteriorly. HEART: S1, S2. Regular rate and rhythm. ABDOMEN: Soft. No tenderness. LABS: No new labs have been obtained today. DIAGNOSTIC IMPRESSION AND PLAN: Patient with diarrhea with concern for possible bacterial gastroenteritis. Stool did show Pseudomonas. However, the patient did not respond to cefepime; possible colonizer, and some of the diarrhea could be antibiotic-associated. Will discontinue cefepime. Continue the Questran for symptomatic relief and see clinical response. If any persistent or worsening diarrhea, will repeat a CT and may request colonoscopy. Continue with supportive care. MMODL / IJN: [id number] /
[2021-05-26] MEDS: ASPIRIN 81 MG PO SCH (21:16)
[2021-05-26] MEDS: MAGNESIUM OXIDE 400 MG TAB PO SCH (21:17)
[2021-05-26] MEDS: LATANOPROST 0.005% OPHTH DROPS 2.5 ML BTL LEFT EYE SCH (21:17)
[2021-05-26] MEDS: ATORVASTATIN 20 MG TAB PO SCH (21:17)
[2021-05-26] MEDS ORDERED: FAMOTIDINE 20 MG TAB PO STA (21:18)
[2021-05-27] MEDS: IPRATROPIUM-ALBUTEROL 3 ML NEB INHALATION SCH ×4 (07:52→20:35)
[2021-05-27] MEDS: TAMSULOSIN 0.4 MG CAP.ER.24H PO SCH (08:17)
[2021-05-27] MEDS: CALCIUM CARB-VIT D 500 MG-5 MCG TAB PO SCH ×2 (08:17→17:15)
[2021-05-27] MEDS: HEPARIN SODIUM,PORCINE/PF 5,000 UNIT/0.5 ML SYRINGE SQ SCH ×2 (08:17→21:57)
[2021-05-27] MEDS: predniSONE 5 MG TAB PO SCH (08:17)
[2021-05-27] MEDS: CHOLECALCIFEROL 25 MCG (1000 IU) TABLET PO SCH (08:17)
[2021-05-27] MEDS: PANTOPRAZOLE 40 MG TABLET PO SCH ×2 (08:17→17:15)
[2021-05-27] MEDS: CHOLESTYRAMINE (WITH SUGAR) 4 GM PACKET PO SCH ×3 (08:18→23:32)
[2021-05-27] MEDS ORDERED: methylPREDNISolone SOD SUCCI 125 MG/2 ML VIAL IV STA (10:47)
--- NOTE | 2021-05-27 11:23 | P.PN ---
Subjective Progress Note Date: 05/27/21 CHIEF COMPLAINT: Ileus HISTORY OF PRESENT ILLNESS: Surgical service is following in regards to patient's large bowel ileus. Patient denies any abdominal pain. Patient still reporting diarrhea. He did have 4 loose stools. ID has added Questran. Case discussed with infectious diseases and medical service. Infectious disease is recommending prednisone. Denies any blood in the stools. Denies any nausea or vomiting. He is tolerating regular diet. Afebrile. Patient seen and examined with Dr. fierro PHYSICAL EXAM: VITAL SIGNS: Reviewed. GENERAL: Well-developed in no acute distress. HEENT: No sclera icterus. Extraocular movements grossly intact. Moist buccal mucosa. Head is atraumatic, normocephalic. ABDOMEN: Soft. Nondistended. Nontender NEUROLOGIC: Alert and oriented. Cranial nerves II through XII grossly intact. ASSESSMENT: 1. Possible large bowel ileus resolved 2. Pseudomonas gastroenteritis possible colonization per ID PLAN: -Continue chopped diet -Continue supportive care -No surgical intervention planned -Patient can be discharged from surgical standpoint when medically cleared -Endoscopies can be done outpatient Physician Health Clinician note has been reviewed by physician. Signing provider agrees with the documented findings, assessment, and plan of care. Objective - Vital Signs Vital signs: Vital Signs Temp 98.5 F 05/27/21 07:28 Pulse 78 05/27/21 08:01 Resp 18 05/27/21 07:28 BP 92/57 05/27/21 07:28 Pulse Ox 98 05/27/21 07:52 Intake & Output 05/26/21 05/27/21 05/27/21 18:59 06:59 18:59 Output Total 730 420 Balance -730 -420 Output: Urine 730 420 Other: Voiding Method Indwelling Catheter Indwelling Catheter # Bowel Movements 2 2 - Labs CBC & Chem 7: 05/23/21 06:18 05/23/21 06:18 Labs: Microbiology - Last 24 Hours (Table) 05/20/21 04:00 Stool Culture - Preliminary Stool Pseudomonas aeruginosa
--- NOTE | 2021-05-27 14:13 | P.PN ---
Subjective Progress Note Date: 05/27/21 This is a pleasant 86 years old male with past medical history of COPD, Hyperlipidemia, Hypertension, Prostate Disorder, positive occult stool,intermittent diarrhea,wt loss of 50 lbs over last year,hx glaucoma left eye. [facility]. Patient presents because of feeling ill and generally weak for 1 week duration associated with low appetite. Patient had baseline is staying in bed with only very limited surrounding walking period. He is been complaining of from diarrhea about 10-12 times per day with no blood but we will check occult blood in the stool. He has some abdominal pain.. No significant chest pain or dyspnea while sitting in bed. Occasional coughing. No urinary complaints. Patient quit smoking years ago. He drinks every other days but he has not drank over the last week. he has concentrated oxygen at home. Patient on prednisone 5 mg daily and he follows up with Dr. Peacock. He is oxygen saturating 92-94% on 2 L oxygen via nasal cannula. Not tachypneic while in bed. Blood pressure is borderline 95/54. Mild leukocytosis 14 K, creatinine 1.38. He is currently on normal sinus 75 mL/h. Start ceftriaxone and IV Flagyl and hydrocortisone. Start calcium and vitamin D. 05/19/2021 Patient is awake, does not look in distress. Hemodynamically stable. Blood pressure is 113/70. Hyperthermic 97.5. Patient states that his diarrhea is better 5 times per day compared to 10 days on admission, he still has mild periumbilical tenderness. He kept on liquid diet Leukocytosis improved down to 9.2 which is normal. Creatinine is pending. procalcitonin mildly elevated at 0.29. CT of the abdomen and pelvis with oral contrast only showing large bowel ileus, aortic aneurysm 4.5 cm, enlarged prostate with distended urinary bladder 12 cm suspicious for chronic urinary obstruction. Patient remains on ceftriaxone and Flagyl, continue with normal saline, continue with hydrocortisone 50 mg 3 times a day which is stress dose as patient is steroid dependent 05/20/2021 Patient reports improvement today. He feels hungry and tolerating liquid diet and wanted to be advanced to soft diet which is ordered. Distal have diarrhea 51 date severity yesterday however significant back negative. No abdominal pain. Surgery team on the case. His breathing is stable, mildly tachypneic. Repeat chest x-ray today showing chronic changes with no infiltrate. Vitals are stable. Labs are unremarkable including WBC back to 7.8, creatinine remains stable and normal at 0.9. C. diff came back negative. He remains on ceftriaxone and Rocephin. 4 possible gastroenteritis. He remains on stress dose of hydrocortisone. Computed tomography scan showing a large bladder however scan showing only 300. Flomax added. He was started on calcium and vitamin D Check pro-calcitonin tomorrow 05/21/2021 Patient still have diarrhea with no abdominal pain, no nausea vomiting. Patient says that his diarrhea was going on for about a week and a half but his weight loss was more than a year. He [facility]. Respiratory symptoms. Hemodynamically stable, blood pressure is low normal. However we will switch his hydrocortisone and to his home dose of prednisone 5 mg daily and monitor his blood pressure closely. Most likely this is his baseline blood pressure. He has mild leukocytosis due to steroid effect. Creatinine normal. Stool culture is pending, occult blood in stool is pending. Stool wbc and elastase are ordered or below they are of usually low yield. Patient remains on ceftriaxone and Flagyl and gentle hydration. Patient concerned about his weight loss but he wants to follow up with Dr. Chan as an outpatient bladder scan was checked is 294 mL postvoid 05/22/2021 Patient tolerates diet and he is having occasional cramps in his left lower quadrant about twice per day lasting less than a minute. Abdominal area about 5-10 times per day. No fever leukocyte is improved after switching history Mr. prednisone 5 mg. Today stool culture came back positive for Pseudomonas. We'll give 1 dose of cefepime and will discuss with ID team about further antibiotics. An event that we'll continue with gentle hydration and GI and DVT prophylaxis. Physical therapist recommended home health care 05/23/2021 Patient is awake and alert. He still have same diarrhea. Still have left lower quadrant tenderness. His culture is growing Pseudomonas. Which is unknown likely cause for gastroenteritis however patient failed to respond to ceftriaxone and Flagyl therefore switch him to cefepime worth a trial and may be beneficial for the patient that looks appropriate. Other than that continue with D5 normal saline. Hemodynamically stable. We will continue to monitor Smith catheter was placed for urinary retention 05/24/2021 Today his first day patient reports improvement," might diarrhea is slowing down" he had several bouts of bowel movement of diarrhea yesterday however is better this morning. This is after antibiotics were adjusted to cefepime. However we will keep monitoring to ensure resolution and significant improvement. Other than that he is hemodynamically and labs are stable. Patient wants to be DO NOT RESUSCITATE 05/25/2021 Patient is seen and evaluated in follow up this morning and continues on IV cefepime with ID and surgery following closely. Patient continues with loose stools and becoming less frequent and more formed. Patient was evaluated by PT/OT and will be going to [facility] with possible home care. 05/26/2021 Patient is seen in follow-up this morning continues to have mild loose stools although has improved and less severe. Patient states he had episode of acid reflux yesterday after eating and will reorder Protonix. Patient is continued on Pepcid and will continue. Patient's stool culture showing pseudomonas aeruginosa with infectious disease following closely. IV antibiotics have been discontinued and we'll continue to monitor the patient closely off antibiotic therapy. Infectious disease is following. Patient also continues on Questran at this time. 05/27/2021 Patient is seen and evaluated in follow-up this morning and states that since 10:00 last night through today he has had four bowel movements which has improved from previous and patient is off antibiotics. Infectious disease following closely recommending giving a dose of IV steroid and monitor for improvement and possible prednisone taper on discharge. Encouraged increased activity and continued oral intake. Surgery also following recommending no surgical intervention at this time and medically stable for discharge and can pursue endoscopies in the outpatient setting. Review of systems: Constitutional: No reports of fatigue, fever, or chills Cardiovascular: No reports of chest pain or palpitations Respiratory: No reports of shortness of breath or cough GI: No reports of nausea, vomiting, reports more formed stool and less frequent episodes : No reports of dysuria or retention Neurovascular: No reports of weakness or numbness All medications have been reviewed Active Medications Acetaminophen (Acetaminophen Tab 500 Mg Tab) 500 mg PO Q8H PRN PRN Reason: Fever and/ or Pain Last Admin: 05/21/21 09:19 Dose: 500 mg Documented by: Albuterol/Ipratropium (Ipratropium-Albuterol 3 Ml Neb) 3 ml INHALATION RT-QID [facility] Last Admin: 05/27/21 11:22 Dose: 3 ml Documented by: Aspirin (Aspirin 81 Mg) 81 mg PO [facility] Last Admin: 05/26/21 21:16 Dose: 81 mg Documented by: Atorvastatin Calcium (Atorvastatin 20 Mg Tab) 20 mg PO [facility] Last Admin: 05/26/21 21:17 Dose: 20 mg Documented by: Calcium Carbonate (Calcium Carb-Vit D 500 Mg-5 Mcg Tab) 1 each PO BID-W/MEALS [facility] Last Admin: 05/27/21 08:17 Dose: 1 each Documented by: Cholecalciferol (Cholecalciferol 25 Mcg (1000 Iu) Tablet) 25 mcg PO DAILY [facility] Last Admin: 05/27/21 08:17 Dose: 25 mcg Documented by: Cholestyramine Resin (Cholestyramine (With Sugar) 4 Gm Packet) 4 gm PO TID [facility] Famotidine (Famotidine 20 Mg Tab) 20 mg PO Q24H [facility] Last Admin: 05/25/21 21:08 Dose: 20 mg Documented by: Heparin Sodium (Porcine) (Heparin Sodium,Porcine/Pf 5,000 Unit/0.5 Ml Syringe) 5,000 unit SQ Q12HR [facility] Last Admin: 05/27/21 08:17 Dose: 5,000 unit Documented by: Latanoprost (Latanoprost 0.005% Ophth Drops 2.5 Ml Btl) 1 drops LEFT EYE [facility] Last Admin: 05/26/21 21:17 Dose: 1 drops Documented by: Magnesium Oxide (Magnesium Oxide 400 Mg Tab) 200 mg PO [facility] Last Admin: 05/26/21 21:17 Dose: 200 mg Documented by: Pantoprazole Sodium (Pantoprazole 40 Mg Tablet) 40 mg PO AC-BID [facility] Last Admin: 05/27/21 08:17 Dose: 40 mg Documented by: Tamsulosin HCl (Tamsulosin 0.4 Mg Cap.Er.24h) 0.4 mg PO PC-BRKFST [facility] Last Admin: 05/27/21 08:17 Dose: 0.4 mg Documented by: Physical exam: GENERAL: The patient is alert and oriented x3, not in any acute distress. Sitting up in the chair. Well developed, well nourished. HEENT: Pupils are round and equally reacting to light. EOMI. No scleral icterus. No conjunctival pallor. Normocephalic, atraumatic. No pharyngeal erythema. No thyromegaly. CARDIOVASCULAR: S1 and S2 present. No murmurs, rubs, or gallops. PULMONARY: Chest is clear to auscultation, no wheezing or crackles. ABDOMEN: Soft, no tenderness noted on exam, non-distended, normoactive bowel sounds. No palpable organomegaly. MUSCULOSKELETAL: No joint swelling or deformity. EXTREMITIES: No cyanosis, clubbing, or pedal edema. NEUROLOGICAL: Gross neurological examination did not reveal any focal deficits. SKIN: No rashes. no petechiae. Assessment: abdominal pain with acute gastroenteritis. Stool culture finalized Pseudomonas Large bowel ileus, improved Acute and chronic bladder outlet obstruction, start Flomax Mild acute kidney injury, resolved Generalized weakness and deconditioning COPD with mild exacerbation. Steroid dependent Thoracic vertebral collapse Dehydration borderline hypertension GI prophylaxis DVT prophylaxis No code Plan: This is a pleasant 86 years old male who presents with possible pneumonia, weakness, gait dysfunction and gastroenteritis. ID following and patient was maintained on IV cefepime she has been discontinued. Patient is showing improvements in the frequency and consistency of bowel movements and will continue with Questran and have increased it to 3 times daily. Patient to be given a dose of IV Solu-Medrol and monitor closely for another 24 hours on improvement of bowel movements. Encouraged oral intake and increased activity as tolerated. Indwelling smith catheter for urinary retention and continue flomax. Urology follow up outpatient. Per social work and case management patient will be going to [facility] with home care. Anticipate discharge in 24 hours. Objective - Vital Signs Vital signs: Vital Signs Temp 98.5 F 05/27/21 07:28 Pulse 78 05/27/21 08:01 Resp 18 05/27/21 07:28 BP 92/57 05/27/21 07:28 Pulse Ox 98 05/27/21 07:52 Intake & Output 05/26/21 05/27/21 05/27/21 18:59 06:59 18:59 Output Total 730 420 Balance -730 -420 Output: Urine 730 420 Other: Voiding Method Indwelling Catheter Indwelling Catheter # Bowel Movements 2 2 - Labs CBC & Chem 7: 05/23/21 06:18 05/23/21 06:18
--- NOTE | 2021-05-27 19:23 | PN ---
PROGRESS NOTE DATE OF SERVICE: 05/27/2021 REASON FOR FOLLOWUP: Diarrhea. INTERVAL HISTORY: The patient is afebrile. The patient did mention slight decrease in his diarrhea but still had four loose stools over the last 12 hours. The patient denies any abdominal pain. No nausea, vomiting. No chest pain, shortness of breath or cough. PHYSICAL EXAMINATION: Blood pressure is 89/51 with a pulse of 94, temperature is 97.7. He is 99% on 2 L nasal cannula. General description is an elderly male up in the chair in no distress. Respiratory system: Unlabored breathing, decreased breath sounds, no wheeze. Heart S1, S2. Regular rate and rhythm. Abdomen soft, no tenderness. LABS: No new labs have been obtained today. DIAGNOSTIC IMPRESSION AND PLAN: Patient admitted to the with acute nausea, vomiting and diarrhea, initial concern for infectious diarrhea, however, patient did not respond to the Rocephin and Flagyl and not subsequently to the cefepime, question of possible inflammatory colitis. We gave him a dose of Solu-Medrol and did have overall improvement, may transition to oral prednisone ( )followup with GI in the outpatient setting. This was discussed with the primary team as well Surgery and continue supportive care. MMODL / IJN: [id number] /
[2021-05-27] MEDS: ASPIRIN 81 MG PO SCH (21:56)
[2021-05-27] MEDS: FAMOTIDINE 20 MG TAB PO SCH (21:56)
[2021-05-27] MEDS: ATORVASTATIN 20 MG TAB PO SCH (21:56)
[2021-05-27] MEDS: LATANOPROST 0.005% OPHTH DROPS 2.5 ML BTL LEFT EYE SCH (21:56)
[2021-05-27] MEDS: MAGNESIUM OXIDE 400 MG TAB PO SCH (21:57)
[2021-05-28] MEDS: IPRATROPIUM-ALBUTEROL 3 ML NEB INHALATION SCH ×3 (08:10→17:01)
[2021-05-28] MEDS: CHOLECALCIFEROL 25 MCG (1000 IU) TABLET PO SCH (08:56)
[2021-05-28] MEDS: CHOLESTYRAMINE (WITH SUGAR) 4 GM PACKET PO SCH ×2 (08:56→16:55)
[2021-05-28] MEDS: HEPARIN SODIUM,PORCINE/PF 5,000 UNIT/0.5 ML SYRINGE SQ SCH (08:56)
[2021-05-28] MEDS: PANTOPRAZOLE 40 MG TABLET PO SCH ×2 (08:56→16:55)
[2021-05-28] MEDS: CALCIUM CARB-VIT D 500 MG-5 MCG TAB PO SCH ×2 (08:56→16:55)
[2021-05-28] MEDS: TAMSULOSIN 0.4 MG CAP.ER.24H PO SCH (08:57)
--- NOTE | 2021-05-28 12:17 | P.PN ---
Subjective Progress Note Date: 05/28/21 CHIEF COMPLAINT: Ileus HISTORY OF PRESENT ILLNESS: Surgical service is following in regards to patient's large bowel ileus. Patient does report some lower abdominal pain when he is getting ready to have a bowel movement. Patient still reporting diarrhea. He did have 3 loose stools from midnight until this morning. Patient is on Questran. ID service did give a dose of IV steroids for possible inflammatory colitis. Denies any blood in the stools. Denies any nausea or vomiting. He is tolerating regular diet. Afebrile. Patient seen and examined with Dr. fierro PHYSICAL EXAM: VITAL SIGNS: Reviewed. GENERAL: Well-developed in no acute distress. HEENT: No sclera icterus. Extraocular movements grossly intact. Moist buccal mucosa. Head is atraumatic, normocephalic. ABDOMEN: Soft. Nondistended. Nontender NEUROLOGIC: Alert and oriented. Cranial nerves II through XII grossly intact. ASSESSMENT: 1. Possible large bowel ileus resolved 2. Pseudomonas gastroenteritis possible colonization per ID PLAN: -Continue chopped diet -Continue supportive care -No surgical intervention planned -Patient can be discharged from surgical standpoint when medically cleared -Endoscopies can be done outpatient Physician Cam Milling Machine Operator note has been reviewed by physician. Signing provider agrees with the documented findings, assessment, and plan of care. Objective - Vital Signs Vital signs: Vital Signs Temp 97.6 F 05/28/21 07:51 Pulse 74 05/28/21 11:19 Resp 18 05/28/21 07:51 BP 115/57 05/28/21 07:51 Pulse Ox 98 05/28/21 08:10 Intake & Output 05/27/21 05/28/21 05/28/21 18:59 06:59 18:59 Output Total 420 351 Balance -420 -351 Output: Urine 420 350 Stool 1 Other: Voiding Method Indwelling Catheter # Voids 1 # Bowel Movements 1 1 - Labs CBC & Chem 7: 05/23/21 06:18 05/23/21 06:18 Labs: Microbiology - Last 24 Hours (Table) 05/20/21 04:00 Stool Culture - Final Stool Pseudomonas aeruginosa
--- NOTE | 2021-05-28 13:56 | PN ---
PROGRESS NOTE DATE OF SERVICE: 05/28/2021 REASON FOR FOLLOWUP: Diarrhea. INTERVAL HISTORY: The patient is afebrile. The patient mentioned he is feeling slightly better; the diarrhea has slightly slowed down compared to yesterday. Patient denies any abdominal pain. No vomiting. PHYSICAL EXAMINATION: Blood pressure is 115/57, pulse 74, temperature 97.6. He is 96% on 2 L nasal cannula. General description is an elderly male up in the bed in no distress. RESPIRATORY SYSTEM: Unlabored breathing. Decreased intensity of breath sounds. No wheeze. HEART: S1, S2. Regular rate and rhythm. ABDOMEN: Soft. No tenderness. LABS: No new labs have been obtained today. DIAGNOSTIC IMPRESSION AND PLAN: Patient with diarrhea, question of inflammatory colitis. May benefit from colonoscopy. This was discussed with the no GI service is available. Patient will be discharged on a tapering course of prednisone with close outpatient followup with GI services. All of his questions and concerns were answered. MMODL / IJN: [id number] /
[2021-05-28 14:05] VITALS: BP 103/55; RESP 16; TEMP 97.8
--- NOTE | 2021-05-28 15:49 | P.DS ---
Providers Date of admission: 05/19/21 11:14 Expected date of discharge: 05/28/21 Attending physician: Waqar Ovalle MD Consults: 05/18/21 19:30 Consult Physician Urgent Consulting Provider: Mariposa Han Consult Reason/Comments: possible sepsis Do you want consulting provider notified?: Yes 05/18/21 23:10 Consult Physician Urgent Consulting Provider: Arie Moeller Consult Reason/Comments: bowel obstruction Do you want consulting provider notified?: Yes, Notify in am Primary care physician: [facility] Hospital Course: Final diagnosis abdominal pain with acute gastroenteritis. Stool culture finalized Pseudomonas Large bowel ileus, improved Acute and chronic bladder outlet obstruction, start Flomax Mild acute kidney injury, resolved Generalized weakness and deconditioning COPD with mild exacerbation. Steroid dependent Thoracic vertebral collapse Moderate protein calorie malnutrition with a BMI of 18.5 Dehydration borderline hypertension GI prophylaxis DVT prophylaxis No code Discharge disposition Patient is being discharged in a stable condition with guarded prognosis to [facility]. Patient will follow-up with [facility] in the outpatient setting upon discharge. Patient is to also follow-up with GI, urology, oncology in the outpatient setting. Patient will continue on a prednisone taper on discharge. Total time taken is greater than 35 minutes. Hospital course This is a pleasant 86 years old male with past medical history of COPD, Hyperlipidemia, Hypertension, Prostate Disorder, positive occult stool,intermittent diarrhea,wt loss of 50 lbs over last year,hx glaucoma left eye. He [place] with the [place] [facility]. Patient presents because of feeling ill and generally weak for 1 week duration associated with low appetite. Patient had baseline is staying in bed with only very limited surrounding walking period. He is been complaining of from diarrhea about 10-12 times per day with no blood but we will check occult blood in the stool. He has some abdominal pain.. No significant chest pain or dyspnea while sitting in bed. Occasional coughing. No urinary complaints. Patient quit smoking years ago. He drinks every other days but he has not drank over the last week. he has concentrated oxygen at home. Patient on prednisone 5 mg daily and he follows up with Dr. Peacock. He is oxygen saturating 92-94% on 2 L oxygen via nasal cannula. Not tachypneic while in bed. Blood pressure is borderline 95/54. Mild leukocytosis 14 K, creatinine 1.38. He is currently on normal sinus 75 mL/h. Start ceftriaxone and IV Flagyl and hydrocortisone. Start calcium and vitamin D. 05/28/2021 Patient has been off of IV antibiotics and showing some improvement in frequency and amount of loose stools and will continue with Questran 3 times a day along with a prednisone taper and recommending close follow-up with GI in the outpatient setting. Patient for some urinary retention requiring indwelling Beavers catheter and continued on Flomax and recommending urology follow-up in the outpatient setting. Encouraged oral intake and patient is to have yogurt with each meal and avoid milk and milk products. Currently no reports of chest pain, shortness of breath, or palpitations. Patient is afebrile. No reports of nausea or vomiting and patient is tolerating diet. Patient will be going to [facility] today. GENERAL: The patient is alert and oriented x3, not in any acute distress. Sitting up in the chair. Well developed, well nourished. HEENT: Pupils are round and equally reacting to light. EOMI. No scleral icterus. No conjunctival pallor. Normocephalic, atraumatic. No pharyngeal erythema. No thyromegaly. CARDIOVASCULAR: S1 and S2 present. No murmurs, rubs, or gallops. PULMONARY: Chest is clear to auscultation, no wheezing or crackles. ABDOMEN: Soft, no tenderness noted on exam, non-distended, normoactive bowel sounds. No palpable organomegaly. MUSCULOSKELETAL: No joint swelling or deformity. EXTREMITIES: No cyanosis, clubbing, or pedal edema. NEUROLOGICAL: Gross neurological examination did not reveal any focal deficits. SKIN: No rashes. no petechiae. Please refer to medication reconciliation sheet for a list of medications. Patient Condition at Discharge: Stable Plan - Discharge Summary Discharge Rx Participant: No New Discharge Prescriptions: New Ipratropium-Albuterol Nebulize [Duoneb 0.5 mg-3 mg/3 ml Soln] 3 ml INHALATION RT-QID 30 Days #90 ml Famotidine [Pepcid] 20 mg PO Q24H 30 Days #30 tab Calcium Carb-Vit D 500Mg-5Mcg [Oscal 500+D 5 Mcg (200 Iu)] 1 each PO BID- W/MEALS 30 Days #60 tab predniSONE 10 mg PO DIRECTED #30 tab Cholestyramine (with Sugar) [Questran Packet] 4 gm PO TID #90 packet Continue Tamsulosin [Flomax] 0.4 mg PO BID Latanoprost [Xalatan 0.005%] 1 drop LEFT EYE HS Aspirin EC [Ecotrin Low Dose] 81 mg PO HS Atorvastatin [Lipitor] 20 mg PO HS Magnesium 200 mg PO HS Cholecalciferol [Vitamin D3 (25 Mcg = 1000 Iu)] 25 mcg PO DAILY Acetaminophen Tab [Tylenol] 500 mg PO Q8H PRN PRN Reason: Fever And/ Or Pain Albuterol Inhaler [Ventolin Hfa Inhaler] 2 puff INHALATION RT-TID Tiotropium 18 Mcg/Puff [Spiriva] 2 puff INHALATION DAILY Albuterol Nebulized [Ventolin Nebulized] 1.25 mg INHALATION Q6H Furosemide [Lasix] 20 mg PO MOWEFR guaiFENesin [Mucinex] 600 mg PO BID Discontinued lisinopriL [Zestril] 20 mg PO BID Omeprazole 20 mg PO Q48H predniSONE 5 mg PO DAILY Discharge Medication List Aspirin EC [Ecotrin Low Dose] 81 mg PO HS 08/29/19 [History] Latanoprost [Xalatan 0.005%] 1 drop LEFT EYE HS 08/29/19 [History] Tamsulosin [Flomax] 0.4 mg PO BID 08/29/19 [History] Atorvastatin [Lipitor] 20 mg PO HS 06/23/20 [History] Furosemide [Lasix] 20 mg PO MOWEFR 04/23/21 [History] Acetaminophen Tab [Tylenol] 500 mg PO Q8H PRN 05/18/21 [History] Cholecalciferol [Vitamin D3 (25 Mcg = 1000 Iu)] 25 mcg PO DAILY 05/18/21 [History] Magnesium 200 mg PO HS 05/18/21 [History] guaiFENesin [Mucinex] 600 mg PO BID 05/18/21 [History] Albuterol Inhaler [Ventolin Hfa Inhaler] 2 puff INHALATION RT-TID 05/22/21 [History] Albuterol Nebulized [Ventolin Nebulized] 1.25 mg INHALATION Q6H 05/22/21 [History] Tiotropium 18 Mcg/Puff [Spiriva] 2 puff INHALATION DAILY 05/22/21 [History] Calcium Carb-Vit D 500Mg-5Mcg [Oscal 500+D 5 Mcg (200 Iu)] 1 each PO BID-W/MEALS 30 Days #60 tab 05/28/21 [Rx] Cholestyramine (with Sugar) [Questran Packet] 4 gm PO TID #90 packet 05/28/21 [Rx] Famotidine [Pepcid] 20 mg PO Q24H 30 Days #30 tab 05/28/21 [Rx] Ipratropium-Albuterol Nebulize [Duoneb 0.5 mg-3 mg/3 ml Soln] 3 ml INHALATION RT-QID 30 Days #90 ml 05/28/21 [Rx] predniSONE 10 mg PO DIRECTED #30 tab 05/28/21 [Rx] Follow up Appointment(s)/Referral(s): Ok Chan MD [STAFF PHYSICIAN] - 4 Weeks (Office will call ) Gila Couch MD [STAFF PHYSICIAN] - 1 Week (Please call and make an appointment) [facility] [NON-STAFF] - ([facility] will call you to schedule your home care services. ) Jere Cedeño MD [STAFF PHYSICIAN] - 1 Week (office will call;) [facility] [Primary Care Provider] - 10 Days (Nurse will call ) Arie Moeller MD [STAFF PHYSICIAN] - 05/28/21 2:40 pm Activity/Diet/Wound Care/Special Instructions: See Dr Ellis Couch regarding loose stools. Patient is going to [facility] Patient to follow-up with GI in the outpatient setting Continue with Questran 3 times daily and hold if having constipation Continue prednisone taper until finished and then may resume 5 mg per on his own daily as previously prescribed Continue dysphasia 3 chopped diet with soft foods and yogurt with each meal No milk Continue with ensure compact twice daily with lunch and dinner vanilla Discharge Disposition: HOME WITH HOME HEALTH SERVICES
[2021-05-28 17:13] VITALS: PULSE 74
== END 2021-05-28 19:24 | disposition home health service (06) | DRG 371 ==
LOC: EC 13:20 → 5NMEDONC 14:54 → 4SSUR 21:31 → OBSVTOIN 05-19 11:14
PROVIDERS: ADMIT Internal Medicine; ATTEND Internal Medicine
DX: A04.8 Other specified bacterial intestinal infections (principal); J18.9 Pneumonia, unspecified organism; K56.7 Ileus, unspecified; Z68.1 Body mass index [BMI] 19.9 or less, adult; E44.0 Moderate protein-calorie malnutrition; N17.9 Acute kidney failure, unspecified; J44.1 Chronic obstructive pulmonary disease with (acute) exacerbation; M48.54XA Collapsed vertebra, not elsewhere classified, thoracic region, initial encounter for fracture; K56.609 Unspecified intestinal obstruction, unspecified as to partial versus complete obstruction; E78.5 Hyperlipidemia, unspecified; Z20.822 Contact with and (suspected) exposure to COVID-19; E86.0 Dehydration; I10 Essential (primary) hypertension; Z87.891 Personal history of nicotine dependence; Z80.0 Family history of malignant neoplasm of digestive organs; Z79.899 Other long term (current) drug therapy; Z79.52 Long term (current) use of systemic steroids; Z66 Do not resuscitate; K21.9 Gastro-esophageal reflux disease without esophagitis; N32.0 Bladder-neck obstruction; N40.1 Benign prostatic hyperplasia with lower urinary tract symptoms; R33.8 Other retention of urine; I45.10 Unspecified right bundle-branch block; T38.0X5A Adverse effect of glucocorticoids and synthetic analogues, initial encounter; I71.4 Abdominal aortic aneurysm, without rupture
CPT/HCPCS: 36415; 71045; 71046; 74176; 80048; 80053; 80076; 81003; 82272; 82656; 83605; 83735; 83993; 84145; 84484; 85025; 85610; 85730; 87045; 87046; 87077; 87186; 87324; 87635; 93005; 94640; 94760; 96360; 99285